=== PATIENT | female | born 1945 | race Caucasian/White ===

== ENCOUNTER 2022-03-21 06:37 | Inpatient (IN) | payer MEDICARE, OTHER ==
[~2022-03-21] VITALS: Ht 162.6 cm; Wt 72.8 kg
[2022-03-21] MEDS ORDERED: SODIUM CHLORIDE 0.9% 1,000 ML IV ONE ×3 (07:30→09:30)
[2022-03-21 07:52] LABS: Basophils # (auto) 0 10 ^3/uL (0-0.2); Basophils % (auto) 0.1 % (0.0-2.0); Eosinophils # (auto) 0 10 ^3/uL (0-0.8); Eosinophils % (auto) 0.1 % (0.0-7.0); Hemoglobin 13.2 g/dL (12.2-16.2); Lymphocytes # (auto) 0.7 10 ^3/uL (0.4-5.4); Mean Corpuscular Hemoglobin 30.2 pg (28.0-32.0); Mean Corpuscular Hgb Conc. 32.1 g/dL (32.0-36.0); Monocytes # (auto) 1.1 10 ^3/uL (0-1.3); Monocytes % (auto) 9.3 % (0.0-12.0); Neutrophils # (auto) 9.8 10 ^3/uL (1.6-8.6); Neutrophils % (auto) 84.5 % (37.0-80.0); Red Blood Cells 4.36 10^6/uL (4.0-5.20); Red Cell Distribution Width 13.7 % (11.8-14.3); White Blood Cell 11.5 10^3/uL (4.4-10.8)
[2022-03-21 08:13] LABS: Albumin 3.2 g/dL (3.4-5.0); Calcium 9.9 mg/dL (8.5-10.1)
[2022-03-21 08:17] LABS: BUN/Creatinine Ratio 12.7; Bilirubin, Total 1.6 mg/dL (0.2-1.0); Total Protein 5.7 g/dL (6.4-8.2)
[2022-03-21 09:00] LABS: Urine Bacteria FEW /hpf (None Seen); Urine Blood Negative /uL (Negative); Urine Hyaline Cast MOD /lpf (0 - 2); Urine Mucus FEW (None Seen); Urine Specific Gravity 1.013 (1.001-1.035); Urine WBC 4 /hpf (0 - 5)
[2022-03-21 09:04] LABS: Alcohol, Urine < 3.0 mg/dL (0-10); Amphetamine Screen, Urine NEGATIVE (NEGATIVE); Barbiturate Scree,Urine NEGATIVE (NEGATIVE); Benzodiazephine Screen, Urine NEGATIVE (NEGATIVE); Cannabinoid Screen, Urine NEGATIVE (NEGATIVE); Cocaine Screen, Urine NEGATIVE (NEGATIVE); Opiate Scree,Urine NEGATIVE (NEGATIVE); Phencyclidine Screen, Urine NEGATIVE (NEGATIVE)
[2022-03-21] MEDS ORDERED: AZITHROMYCIN 500MG/ 250ML 250 ML IV ONE (09:30)
[2022-03-21] MEDS ORDERED: cefTRIAXone 1GM/50ML D5W 50 ML IV ONE (09:30)
[2022-03-21] MEDS ORDERED: metroNIDAZOLE 500MG/100ML 100 ML IV ONE (10:30)
[2022-03-21] MEDS ORDERED: IOHEXOL 300 MG/ML 100ML BOTTLE IJ ONE (10:44)
[2022-03-21] MEDS ORDERED: MORPHINE SULFATE INJ 2 MG/ml SYRG IV PRN (11:15)
[2022-03-21] MEDS ORDERED: NITROGLYCERIN 0.4 MG SL TAB SL PRN (11:15)
[2022-03-21] MEDS ORDERED: FUROSEMIDE 20 MG/2 ML VIAL IV ONE (11:30)
[2022-03-21] MEDS ORDERED: DEXTROSE (50%) 50ML SYRG IV PRN (11:30)
[2022-03-21] MEDS: SODIUM CHLORIDE 0.9% 1,000 ML IV SCH (11:51)
[2022-03-21] MEDS: ACCU-CHEK COMFORT CURVE STRIP VI SCH ×3 (11:52→21:45)
[2022-03-21] MEDS: InsuLIN REG 1unit/0.01ml Soln (100units/ml) SC SCH ×3 (12:07→21:45)
[2022-03-21 12:41] LABS: Cholesterol 105 mg/dL (< 200); HDL Cholesterol 39 mg/dL (40-59); LDL Cholesterol 60 mg/dL (< 100); Triglycerides 107 mg/dL (< 150)
[2022-03-21] MEDS: metroNIDAZOLE 500MG/100ML 100 ML IV SCH ×2 (14:59→21:48)
[2022-03-21] MEDS ORDERED: HALOPERIDOL LACTATE 5 MG/ML INJ VIAL IM PRN (17:30)
[2022-03-21] MEDS ORDERED: KETOROLAC TROMETH 30 MG/ML 1ML VIAL IV ONE (18:30)
[2022-03-22] MEDS: SODIUM CHLORIDE 0.9% 1,000 ML IV SCH ×2 (04:10→20:57)
[2022-03-22] MEDS: metroNIDAZOLE 500MG/100ML 100 ML IV SCH ×3 (06:05→23:30)
[2022-03-22 06:28] LABS: Basophils # (auto) 0 10 ^3/uL (0-0.2); Basophils % (auto) 0.3 % (0.0-2.0); Eosinophils # (auto) 0.1 10 ^3/uL (0-0.8); Eosinophils % (auto) 0.8 % (0.0-7.0); Hematocrit 38.2 % (36.0-46.0); Hemoglobin 12.8 g/dL (12.2-16.2); Lymphocytes # (auto) 1.3 10 ^3/uL (0.4-5.4); Mean Corpuscular Hemoglobin 30.9 pg (28.0-32.0); Mean Corpuscular Hgb Conc. 33.4 g/dL (32.0-36.0); Mean Corpuscular Volume 92.5 fL (80.0-100.0); Monocytes % (auto) 9.7 % (0.0-12.0); Neutrophils # (auto) 7.8 10 ^3/uL (1.6-8.6); Neutrophils % (auto) 76.2 % (37.0-80.0); Nucleated Red Blood Cells % 0.1 %; Red Blood Cells 4.13 10^6/uL (4.0-5.20); Red Cell Distribution Width 13.8 % (11.8-14.3); White Blood Cell 10.3 10^3/uL (4.4-10.8)
[2022-03-22 06:47] LABS: Albumin 2.8 g/dL (3.4-5.0); BUN/Creatinine Ratio 17.1; Calcium 8.6 mg/dL (8.5-10.1); Potassium 3.8 mmol/L (3.5-5.1)
[2022-03-22 06:49] LABS: Bilirubin, Total 0.6 mg/dL (0.2-1.0)
[2022-03-22] MEDS: ACCU-CHEK COMFORT CURVE STRIP VI SCH ×4 (06:58→23:13)
[2022-03-22] MEDS: InsuLIN REG 1unit/0.01ml Soln (100units/ml) SC SCH ×4 (06:58→22:00)
[2022-03-22] MEDS: cefTRIAXone 1GM/50ML D5W 50 ML IV SCH (09:16)
[2022-03-22 09:51] LABS: Folate (Folic Acid) 7.33 ng/mL (5.38-24)
[2022-03-22] MEDS: MAGNESIUM OXIDE 400 MG TAB PO SCH (10:18)
[2022-03-22] MEDS: ENOXAPARIN SOD 40 MG/0.4 ML SYRINGE SC SCH (10:18)
[2022-03-22] MEDS: AZITHROMYCIN 500MG/ 250ML 250 ML IV SCH (10:18)
[2022-03-22 10:26] LABS: Hepatitis B Surface Antibody Negative (Negative)
[2022-03-22 11:01] LABS: Hepatitis A Total Antibody Negative (Negative)
[2022-03-22 12:22] LABS: Hepatitis C Antibody Negative (Negative)
[2022-03-22] MEDS: HYDROcodone-ACET 5/325MG TAB PO PRN (12:41)
[2022-03-22] MEDS ORDERED: LORazepam 2MG/ML-1ML VIAL IV PRN (14:15)
[2022-03-22] MEDS ORDERED: ATOR40TA52 PO (22:22)
[2022-03-22] MEDS ORDERED: MEMA1TAB3 PO (22:22)
[2022-03-22] MEDS ORDERED: LOS25T PO (22:22)
[2022-03-22] MEDS ORDERED: OMEP-260 PO (22:22)
[2022-03-22] MEDS ORDERED: AMIT-256 PO (22:22)
[2022-03-22 22:23] VITALS: BP 189/84
[2022-03-22 23:26] VITALS: BP 180/84
[2022-03-23] MEDS: HYDROcodone-ACET 5/325MG TAB PO PRN ×3 (01:05→20:52)
[2022-03-23 05:00] VITALS: BP 180/84
[2022-03-23] MEDS: metroNIDAZOLE 500MG/100ML 100 ML IV SCH ×3 (05:34→20:52)
[2022-03-23] MEDS: InsuLIN REG 1unit/0.01ml Soln (100units/ml) SC SCH ×4 (05:52→20:58)
[2022-03-23] MEDS: ACCU-CHEK COMFORT CURVE STRIP VI SCH ×4 (05:52→20:59)
[2022-03-23 06:18] LABS: Basophils # (auto) 0 10 ^3/uL (0-0.2); Basophils % (auto) 0.4 % (0.0-2.0); Eosinophils # (auto) 0.1 10 ^3/uL (0-0.8); Eosinophils % (auto) 1.6 % (0.0-7.0); Hematocrit 36.1 % (36.0-46.0); Hemoglobin 12.3 g/dL (12.2-16.2); Lymphocytes # (auto) 1.8 10 ^3/uL (0.4-5.4); Lymphocytes % (auto) 21.4 % (10.0-50.0); Mean Corpuscular Hgb Conc. 34.1 g/dL (32.0-36.0); Mean Corpuscular Volume 90.9 fL (80.0-100.0); Monocytes # (auto) 0.6 10 ^3/uL (0-1.3); Monocytes % (auto) 6.7 % (0.0-12.0); Neutrophils # (auto) 5.9 10 ^3/uL (1.6-8.6); Neutrophils % (auto) 69.9 % (37.0-80.0); Red Blood Cells 3.97 10^6/uL (4.0-5.20); Red Cell Distribution Width 13.7 % (11.8-14.3); White Blood Cell 8.5 10^3/uL (4.4-10.8)
[2022-03-23 06:31] LABS: Potassium 3.2 mmol/L (3.5-5.1)
[2022-03-23 06:38] LABS: BUN/Creatinine Ratio 10.9; Calcium 8.5 mg/dL (8.5-10.1)
[2022-03-23 08:00] VITALS: BP 133/57
[2022-03-23] MEDS: cefTRIAXone 1GM/50ML D5W 50 ML IV SCH (08:26)
[2022-03-23] MEDS: MAGNESIUM OXIDE 400 MG TAB PO SCH (08:28)
[2022-03-23 12:00] VITALS: BP 136/83
[2022-03-23] MEDS: AZITHROMYCIN 500MG/ 250ML 250 ML IV SCH (14:34)
[2022-03-23 16:00] VITALS: BP 150/68
[2022-03-23] MEDS: ENOXAPARIN SOD 40 MG/0.4 ML SYRINGE SC SCH (18:08)
[2022-03-23 22:00] VITALS: BP 144/72
[2022-03-24 05:00] VITALS: BP 173/93
[2022-03-24] MEDS: ACETAMINOPHEN 500 MG TAB PO PRN ×2 (05:01→15:04)
[2022-03-24 06:10] LABS: Basophils # (auto) 0.1 10 ^3/uL (0-0.2); Basophils % (auto) 0.8 % (0.0-2.0); Eosinophils # (auto) 0.1 10 ^3/uL (0-0.8); Eosinophils % (auto) 1.8 % (0.0-7.0); Hematocrit 38.6 % (36.0-46.0); Hemoglobin 13.1 g/dL (12.2-16.2); Lymphocytes # (auto) 1.6 10 ^3/uL (0.4-5.4); Lymphocytes % (auto) 24.8 % (10.0-50.0); Mean Corpuscular Hemoglobin 30.9 pg (28.0-32.0); Mean Corpuscular Hgb Conc. 33.9 g/dL (32.0-36.0); Monocytes # (auto) 0.5 10 ^3/uL (0-1.3); Monocytes % (auto) 7.3 % (0.0-12.0); Neutrophils # (auto) 4.3 10 ^3/uL (1.6-8.6); Neutrophils % (auto) 65.3 % (37.0-80.0); Red Blood Cells 4.24 10^6/uL (4.0-5.20); Red Cell Distribution Width 13.5 % (11.8-14.3); White Blood Cell 6.6 10^3/uL (4.4-10.8)
[2022-03-24] MEDS: metroNIDAZOLE 500MG/100ML 100 ML IV SCH ×2 (06:11→14:00)
[2022-03-24] MEDS: InsuLIN REG 1unit/0.01ml Soln (100units/ml) SC SCH ×3 (06:11→17:00)
[2022-03-24] MEDS: ACCU-CHEK COMFORT CURVE STRIP VI SCH ×3 (06:12→17:00)
[2022-03-24 06:30] LABS: Calcium 9.3 mg/dL (8.5-10.1); Potassium 3.8 mmol/L (3.5-5.1)
[2022-03-24 07:01] VITALS: BP 169/89
[2022-03-24 09:00] VITALS: BP 167/75
[2022-03-24] MEDS: cefTRIAXone 1GM/50ML D5W 50 ML IV SCH ×2 (09:00→09:48)
[2022-03-24] MEDS ORDERED: AMOX500T86 PO (09:30)
[2022-03-24] MEDS ORDERED: hydrALAZINE HCL 20 MG/ML VL IV PRN (09:30)
[2022-03-24] MEDS: MAGNESIUM OXIDE 400 MG TAB PO SCH (09:49)
[2022-03-24] MEDS: AZITHROMYCIN 500MG/ 250ML 250 ML IV SCH (10:00)
[2022-03-24] MEDS: ENOXAPARIN SOD 40 MG/0.4 ML SYRINGE SC SCH (10:00)
[2022-03-24] MEDS ORDERED: amLODIPine BESYLATE 5 MG TAB PO PRN (10:15)
[2022-03-24] MEDS ORDERED: amLODIPine BESYLATE 5 MG TAB PO SCH (10:30)
[2022-03-24 13:00] VITALS: BP 163/73
[2022-03-24 17:00] VITALS: BP 143/78
== END 2022-03-24 18:28 | disposition home or self-care (01) | DRG 871 ==
LOC: ER 06:37 → EDBD 06:37 → OVERFLOW 11:15 → TELE-CENTR 03-22 21:35
PROVIDERS: ADMIT Registered Nurse; ATTEND Internal Medicine Pulmonary Disease
DX: A41.9 Sepsis, unspecified organism (principal); G93.41 Metabolic encephalopathy; R65.21 Severe sepsis with septic shock; J18.9 Pneumonia, unspecified organism; K51.90 Ulcerative colitis, unspecified, without complications; N39.0 Urinary tract infection, site not specified; E11.9 Type 2 diabetes mellitus without complications; E86.0 Dehydration; Z20.822 Contact with and (suspected) exposure to COVID-19; I10 Essential (primary) hypertension; W18.39XA Other fall on same level, initial encounter; F02.80 Dementia in other diseases classified elsewhere, unspecified severity, without behavioral disturbance, psychotic disturbance, mood disturbance, and anxiety; G30.9 Alzheimer's disease, unspecified; W22.03XA Walked into furniture, initial encounter; Z79.899 Other long term (current) drug therapy; Z82.49 Family history of ischemic heart disease and other diseases of the circulatory system; Z87.19 Personal history of other diseases of the digestive system; Z90.49 Acquired absence of other specified parts of digestive tract; Z90.711 Acquired absence of uterus with remaining cervical stump; Y92.89 Other specified places as the place of occurrence of the external cause; Y99.8 Other external cause status
CPT/HCPCS: 36415; 36600; 70450; 70551; 71045; 74176; 74177; 76705; 80048; 80053; 80061; 80307; 81001; 82607; 82746; 82805; 82962; 83036; 83605; 83880; 84443; 84484; 85025; 85610; 86704; 86706; 86708; 86803; 87040; 87086; 87340; 87426; 93005; 93306; 93886; 95819; 96361; 96365; 96367; 97116; 97163; 99291; G0378; J0696; J1815; J1885; J3490

== ENCOUNTER 2022-07-14 12:37 | Day surgery (SDC) | payer MEDICARE ==
[2022-07-12 10:39] LABS: Basophils # (auto) 0.1 10 ^3/uL (0-0.2); Basophils % (auto) 1.3 % (0.0-2.0); Eosinophils # (auto) 0.1 10 ^3/uL (0-0.8); Eosinophils % (auto) 1.6 % (0.0-7.0); Hematocrit 41.5 % (36.0-46.0); Hemoglobin 14.1 g/dL (12.2-16.2); Lymphocytes # (auto) 1.9 10 ^3/uL (0.4-5.4); Lymphocytes % (auto) 32.2 % (10.0-50.0); Mean Corpuscular Hemoglobin 31.2 pg (28.0-32.0); Mean Corpuscular Volume 91.8 fL (80.0-100.0); Monocytes # (auto) 0.6 10 ^3/uL (0-1.3); Neutrophils # (auto) 3.3 10 ^3/uL (1.6-8.6); Neutrophils % (auto) 54.9 % (37.0-80.0); Red Blood Cells 4.52 10^6/uL (4.0-5.20); Red Cell Distribution Width 12.7 % (11.8-14.3)
[2022-07-12 11:15] LABS: Urine Bacteria NONE SEEN /hpf (None Seen); Urine Blood Negative /uL (Negative); Urine Hyaline Cast FEW /lpf (0 - 2); Urine Specific Gravity 1.011 (1.001-1.035); Urine WBC 1 /hpf (0 - 5)
[2022-07-12 11:19] LABS: Partial Thromboplastin Time 26.8 sec (24.6-33.4)
[2022-07-12 11:55] LABS: Potassium 3.9 mmol/L (3.5-5.1)
[2022-07-12 12:11] LABS: Albumin 3.5 g/dL (3.4-5.0); BUN/Creatinine Ratio 18.5 (10.0-20.0); Bilirubin, Total 0.3 mg/dL (0.2-1.0); Calcium 8.9 mg/dL (8.5-10.1); Total Protein 6.4 g/dL (6.4-8.2)
[~2022-07-14] VITALS: Ht 165.1 cm; Wt 68.0 kg
[~2022-07-14 12:37] MED LIST: AMIT-256 PO; ATEN50TA PO; ATOR40TA52 PO; CHOL1TAB28 PO; DULO60CA PO; FENO145T27 PO; GABA100C9 PO; LACT10CA2 OR; LOS25T PO; MULT-1018 PO; OMEP-260 PO
[2022-07-14] MEDS ORDERED: KETAMINE 50mg/ML 10ml Vial (500mg/10ml) IV ONE (13:40)
[2022-07-14] MEDS ORDERED: KETOROLAC TROMETH 30 MG/ML 1ML VIAL IV ONE (13:40)
[2022-07-14] MEDS ORDERED: LIDOCAINE 2% (LOCAL ANESTH.) PF 5ml SDV ONE (13:41)
[2022-07-14] MEDS ORDERED: ONDANSETRON HCL 4 MG/2 ML VIAL ONE (13:41)
[2022-07-14] MEDS ORDERED: GLYCOPYRROLATE 0.2 MG/ML 1ML VIAL ONE (13:41)
[2022-07-14] MEDS ORDERED: MIDAZOLAM HCL 2MG/2ML 2ml VIAL (1mg/ml) ONE (13:41)
[2022-07-14] MEDS ORDERED: fentaNYL CITRATE 100 MCG/2 ML VL ONE (13:41)
[2022-07-14] MEDS ORDERED: PROPOFOL 10 MG/ML 20 ML IV ONE (13:41)
[2022-07-14] MEDS ORDERED: HYDROmorphone HCL 2 MG/ML VL/or syr IV PRN (15:00)
[2022-07-14 15:15] VITALS: BP 163/68
== END 2022-07-14 15:25 | disposition home or self-care (01) ==
LOC: GI 12:37
PROVIDERS: ATTEND Internal Medicine Gastroenterology
DX: R19.4 Change in bowel habit (principal); K57.30 Diverticulosis of large intestine without perforation or abscess without bleeding; K58.9 Irritable bowel syndrome, unspecified; K64.0 First degree hemorrhoids; E11.9 Type 2 diabetes mellitus without complications; I10 Essential (primary) hypertension; K21.9 Gastro-esophageal reflux disease without esophagitis; Z98.890 Other specified postprocedural states; Z90.710 Acquired absence of both cervix and uterus; Z90.49 Acquired absence of other specified parts of digestive tract; Z98.891 History of uterine scar from previous surgery; Z20.822 Contact with and (suspected) exposure to COVID-19
CPT/HCPCS: 36415; 45378; 80053; 81001; 85025; 85610; 85730; J2001; J2250; J2405; J2704; J3010; J7030; U0003; J1885

== ENCOUNTER 2022-11-06 12:41 | Emergency (ER) | payer MEDICARE ==
[~2022-11-06] VITALS: Ht 165.1 cm; Wt 66.8 kg
[~2022-11-06 12:41] MED LIST changes: -DULO60CA PO; +DULO60CA41 PO; +GABA-1308 PO; -GABA100C9 PO; -OMEP-260 PO; +OMEP1CAP70 PO
[2022-11-06 14:26] VITALS: BP 133/53; PULSE 54; RESP 18; TEMP 98.6; O2SAT 95
[2022-11-06] MEDS ORDERED: AMOX875T3 PO (15:50)
== END 2022-11-06 16:02 | disposition home or self-care (01) ==
LOC: ER 12:41
DX: T16.2XXA Foreign body in left ear, initial encounter (principal); F03.90 Unspecified dementia, unspecified severity, without behavioral disturbance, psychotic disturbance, mood disturbance, and anxiety; Z79.899 Other long term (current) drug therapy; X58.XXXA Exposure to other specified factors, initial encounter; Y93.89 Activity, other specified; Y92.89 Other specified places as the place of occurrence of the external cause; Y99.8 Other external cause status
CPT/HCPCS: 69200

== ENCOUNTER 2023-01-07 13:50 | Day surgery (SDC) | payer MEDICARE ==
[2023-01-05 13:38] LABS: Basophils # (auto) 0.1 10 ^3/uL (0-0.2); Basophils % (auto) 1.2 % (0.0-2.0); Eosinophils # (auto) 0.1 10 ^3/uL (0-0.8); Hematocrit 41.5 % (36.0-46.0); Hemoglobin 14.1 g/dL (12.2-16.2); Lymphocytes % (auto) 30.3 % (10.0-50.0); Mean Corpuscular Volume 94.2 fL (80.0-100.0); Monocytes # (auto) 0.6 10 ^3/uL (0-1.3); Monocytes % (auto) 8.9 % (0.0-12.0); Neutrophils # (auto) 3.8 10 ^3/uL (1.6-8.6); Neutrophils % (auto) 57.6 % (37.0-80.0); Red Cell Distribution Width 13.3 % (11.8-14.3); White Blood Cell 6.6 10^3/uL (4.4-10.8)
[2023-01-05 13:50] LABS: INR 1.08 (0.9-1.15); Partial Thromboplastin Time 27.1 SEC (24.5-34.5); Prothrombin Time 11.3 sec (9.3-11.8)
[2023-01-05 14:18] LABS: Alanine Aminotransferase 37 U/L (7-40); Alkaline Phosphatase 103 U/L (46-116); Anion Gap 4 (5-15); Aspartate Aminotransferase 41 U/L (13-40); BUN/Creatinine Ratio 10.3 (10.0-20.0); Bilirubin, Total 0.5 mg/dL (0.2-1.0); Blood Urea Nitrogen 9 mg/dL (9-23); Calcium 10.1 mg/dL (8.7-10.4); Carbon Dioxide 31 mmol/L (20-30); Chloride 103 mmol/L (98-107); Glucose 82 mg/dL (74-106); Potassium 4.8 mmol/L (3.5-5.1); Sodium 138 mmol/L (136-145); Total Protein 6.7 g/dL (5.7-8.2)
[~2023-01-07] VITALS: Ht 165.1 cm; Wt 65.8 kg
[~2023-01-07 13:50] MED LIST changes: +COEN30CA7 PO; +DONE5TAB11 PO; -FENO145T27 PO; +FENO160T PO; +HYDR-4902 PO; +MEMA7CAP OR
[2023-01-07] MEDS ORDERED: SODIUM CHLORIDE LOCK 10 ML ONE (13:54)
[2023-01-07] MEDS ORDERED: LIDOCAINE VISCOUS 2% 15ML UD ONE (13:54)
[2023-01-07] MEDS ORDERED: MIDAZOLAM HCL 5 MG/ML-1ML VIAL ONE (13:55)
[2023-01-07] MEDS ORDERED: fentaNYL CITRATE 100 MCG/2 ML VL ONE (13:55)
[2023-01-07] MEDS: diphenhdrAMINE HCL 50 MG/1 ML VL ONE ×2 (15:37→15:38)
[2023-01-07 15:57] VITALS: TEMP 97.4; O2SAT 99
[2023-01-07 16:47] VITALS: BP 148/61; PULSE 58; RESP 12; O2SAT 95
== END 2023-01-07 16:49 | disposition home or self-care (01) ==
LOC: GI 13:50
PROVIDERS: ATTEND Internal Medicine Gastroenterology
DX: K21.9 Gastro-esophageal reflux disease without esophagitis (principal); K31.7 Polyp of stomach and duodenum; K44.9 Diaphragmatic hernia without obstruction or gangrene; K25.9 Gastric ulcer, unspecified as acute or chronic, without hemorrhage or perforation; K29.50 Unspecified chronic gastritis without bleeding; I10 Essential (primary) hypertension; Z79.899 Other long term (current) drug therapy; Z98.890 Other specified postprocedural states
CPT/HCPCS: 36415; 43239; 43251; 80053; 85025; 85610; 85730; 88305; 88312; 88342; J1200; J2250; J3010; J7030

== ENCOUNTER 2023-12-26 08:00 | Day surgery (SDC) | payer OTHER ==
[~2023-12-26] VITALS: Ht 162.6 cm; Wt 57.6 kg
[~2023-12-26 08:00] MED LIST changes: +ACET-1304 PO; -DONE5TAB11 PO; +DONE5TAB80 PO; -DULO60CA41 PO; +FAMO-12 PO; +GABA-1250 PO; -GABA-1308 PO; -HYDR-4902 PO; -LACT10CA2 OR; +MEMA1TAB5 PO; -OMEP1CAP70 PO; +ROPI0.5T26 PO; +SUCR1TAB PO
[2023-12-26] MEDS ORDERED: IODIXANOL 320MG/ML 100ML BTL IV ONE (11:48)
[2023-12-26] MEDS ORDERED: HEPARIN IN NS 1000Units/500mL 1,500 ML ONE (11:48)
[2023-12-26] MEDS ORDERED: HEPARIN SODIUM (PORCINE) 5000 UNITS/ML 1ML VIAL ONE (12:05)
[2023-12-26] MEDS ORDERED: fentaNYL CITRATE 100 MCG/2 ML VL ONE (12:06)
[2023-12-26] MEDS ORDERED: MIDAZOLAM HCL 2MG/2ML 2ml VIAL (1mg/ml) ONE (12:06)
[2023-12-26] MEDS ORDERED: VERAPAMIL 2.5MG/ML INJ 2ML VIAL IV ONE (12:06)
[2023-12-26] MEDS ORDERED: LIDOCAINE 2%HCL (LOCAL ANESTH.) INJ 20ML MDV ONE (12:06)
[2023-12-26 12:40] VITALS: BP 121/53; PULSE 90; RESP 12; TEMP 97.5; O2SAT 90
[2023-12-26 12:55] VITALS: BP 88/51; PULSE 51; RESP 12; O2SAT 93
[2023-12-26 13:07] VITALS: BP 113/53; PULSE 49; RESP 14; O2SAT 94
[2023-12-26 13:22] VITALS: BP 102/48; PULSE 50; RESP 16; O2SAT 96
[2023-12-26 13:52] VITALS: BP 109/51; PULSE 49; RESP 10; O2SAT 96
[2023-12-26 14:34] VITALS: BP 104/44; PULSE 49; RESP 16; O2SAT 97
== END 2023-12-26 14:45 | disposition home or self-care (01) ==
LOC: CATH 08:00
PROVIDERS: ATTEND Internal Medicine
DX: R07.89 Other chest pain (principal); R94.39 Abnormal result of other cardiovascular function study; E11.9 Type 2 diabetes mellitus without complications; I10 Essential (primary) hypertension; I20.89 Other forms of angina pectoris; F41.9 Anxiety disorder, unspecified; Z87.891 Personal history of nicotine dependence; Z79.899 Other long term (current) drug therapy
CPT/HCPCS: 93458; C1894; J1644; J2250; J3010; J7030; Q9967; 99152

== ENCOUNTER 2024-07-30 12:47 | Emergency (ER) | payer OTHER ==
[~2024-07-30] VITALS: Ht 162.6 cm; Wt 72.7 kg
--- NOTE | 2024-07-30 13:22 | ECG ---
[facility] Test Date: 2024-07-30 Test Time: 13:04:36 Pat Name: JARON TORRES Department: ED Room: Gender: F Cook'S Assistant: MAGDI : 1945 Requested By: GAURAV YUAN Order Number: [id number] Reading MD: Wily Noriega Measurements Intervals [place] Rate: 82 P: 79 PA: 164 QRS: 64 QRSD: 117 T: 42 QT: 389 QTc: 455 Interpretive Statements Sinus rhythm Nonspecific intraventricular conduction delay Electronically Signed On 08-01-2024 21:00:54 PDT by Wily Noriega Please click the below link to view image of tracing.
[2024-07-30 13:25] LABS: Basophils # (auto) 0 10 ^3/uL (0-0.2); Basophils % (auto) 0.5 % (0.0-2.0); Eosinophils # (auto) 0.1 10 ^3/uL (0-0.8); Eosinophils % (auto) 1.7 % (0.0-7.0); Hematocrit 37.2 % (36.0-46.0); Hemoglobin 12.8 g/dL (12.2-16.2); Lymphocytes % (auto) 19.9 % (10.0-50.0); Mean Corpuscular Hemoglobin 31.4 pg (28.0-32.0); Mean Corpuscular Hgb Conc. 34.5 g/dL (32.0-36.0); Mean Corpuscular Volume 91.1 fL (80.0-100.0); Monocytes # (auto) 0.7 10 ^3/uL (0-1.3); Monocytes % (auto) 12.9 % (0.0-12.0); Neutrophils # (auto) 3.3 10 ^3/uL (1.6-8.6); Platelet Count (auto) 229 10^3/uL (140-450); Red Blood Cells 4.08 10^6/uL (4.0-5.20); Red Cell Distribution Width 13.3 % (11.8-14.3); White Blood Cell 5.1 10^3/uL (4.4-10.8)
--- NOTE | 2024-07-30 13:29 | ED.PDOC ---
GI ASSESSMENT HPI Comments 79 y.o female with PMHx of Dementia, HTN and hyperlipidemia, presents to the ED via EMS for a chief complaint of epigastric pain associated with nausea and diarrhea that started 3 days ago. Patient describes pain as achy, constant, non radiating and rating a 4/10 on the pain scale. Patient mentions diarrhea worsened today. Patient denies any vomiting, fever, chills, back pain. Chief Complaint: Abdominal Pain Time Seen by MD: 13:20 Primary Care Provider: PRETTY Reviewed Notes: Nurses Notes, Medications, Allergies Allergies: Coded Allergies: NO KNOWN ALLERGIES (Unverified , 03/21/22) Home Meds Reported Medications Memantine Hydrochloride (Memantine HCl) 10 Mg Tab, 10 MG PO BID for memory, TAB 12/20/23 Gabapentin (Gabapentin) 300 Mg Cap, 600 MG PO HS for neuropathy, MG 12/20/23 Gabapentin (Gabapentin) 300 Mg Cap, 300 MG PO QAM, MG 12/20/23 Donepezil Hydrochloride (DONEPEZIL HCL) 5 Mg Tab, 5 MG PO DAILY for dementia, MG 12/20/23 Acetaminophen (Tylenol Extra Strength) 500 Mg Tab, 500 MG PO PRN, TAB 12/20/23 Sucralfate (Sucralfate) 1 Gm Tab, 1 GM PO BIDP PRN for gerd, GM 12/20/23 Famotidine (Famotidine) 20 Mg Tab, 20 MG PO BID, MG 12/20/23 Ropinirole Hydrochloride (Ropinirole Hcl) 0.5 Mg Tab, 0.5 MG PO HS, TAB 12/20/23 Coenzyme Q10 (Coq10) Unknown Strength Cap, PO, CAP 01/05/23 Memantine Hydrochloride (NAMENDA XR) 7 Mg Cap, 10 MG OR BID, CAP 01/05/23 Fenofibrate (Fenofibrate) 160 Mg Tab, 160 MG PO DAILY, TAB 01/05/23 Atenolol (Atenolol) 50 Mg Tab, 25 MG PO DAILY for 30 Days, MG 07/12/22 Cholecalciferol (D3 2000) 2,000 Unit Tab, 5000 UNIT PO, TAB 07/12/22 Multiple Vitamin (Multivitamins) Tab, 1 TAB PO DAILY, #90 TAB 3 Refills 07/12/22 Losartan Potassium (Losartan Potassium) 25 Mg Tab, 2 TAB PO DAILY 03/22/22 Amitriptyline HCl (Amitriptyline Hydrochlori) 50 Mg Tab, 2 TAB PO HS 03/22/22 Atorvastatin Calcium (ATORVASTATIN CALCIUM) 40 Mg Tab, 1 TAB PO HS 03/22/22 Information Source: Patient Mode of Arrival: EMS Timing: Days (3) Duration: Since onset Quality: Aching Vomitus: None Stool: Loose Severity: Moderate Recent: None Recent Hx of: None Pain Location: Epigastric Modifying Factors: Nothing Associated sign and symptoms: Nausea, Diarrhea, Abdominal Pain Past Medical History PAST MEDICAL HISTORY: Dementia, High Lipids, HTN Surgical History: 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 all 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 Social History Smoker: Non-Smoker Alcohol: Denies ETOH Use Drugs: Denies Drug Use Lives In: Home Constitutional: denies: chills, diaphoresis, fatigue, fever, malaise, sweats, weakness, others EENTM: denies: blurred vision, double vision, ear bleeding, ear discharge, ear drainage, ear pain, ear ringing, eye pain, eye redness, hearing loss, mouth pain, mouth swelling, nasal discharge, nose bleeding, nose congestion, nose pain, photophobia, tearing, throat pain, throat swelling, voice changes, others Respiratory: denies: cough, hemoptysis, orthopnea, SOB at rest, shortness of breath, SOB with excertion, stridor, wheezing, others Cardiovascular: denies: chest pain, dizzy spells, diaphoresis, Dyspnea on exertion, edema, irregular heart beat, left arm pain, lightheadedness, palpitations, PND, syncope, others Gastrointestinal: reports: abdominal pain, diarrhea, nausea; denies: abdomen distended, blood streaked bowels, constipated, dysphagia, difficulty swallowing, hematemesis, melena, poor appetite, poor fluid intake, rectal bleeding, rectal pain, vomiting, others Genitourinary: denies: abnormal vagina bleeding, burning, dyspareunia, dysuria, flank pain, frequency, hematuria, incontinence, pain, , vagina discharge, urgency, others Neurological: denies: dizziness, fainting, headache, left sided numbness, left sided weakness, numbness, paresthesia, pre-existing deficit, right sided numbness, right sided weakness, seizure, speech problems, tingling, tremors, wea kness, others Musculoskeletal: denies: back pain, gout, joint pain, joint swelling, muscle pain, muscle stiffness, neck pain, others Integumetry: denies: bruises, change in color, change in hair/nails, dryness, l aceration, lesions, lumps, rash, wounds, others Allergic/Immunocompromised: denies: Difficulty Healing, Frequent Infections, Hives, Itching, others Hematologic/Lymphatic: denies: anemia, blood clots, easy bleeding, easy bruising, swollen glands, others Endocrine: denies: excessive hunger, excessive sweating, excessive thirst, excessive urination, flushing, intolerance to cold, intolerance to heat, unexplained weight gain, unexplained weight loss, others Psychiatric: denies: anxiety, bipolar disorder, depression, hopeless, panic disorder, schizophrenia, sleepless, suicidal, others All Other Systems: Reviewed and Negative Physical Exam General Appearance: No Apparent Distress, Normal HEENT: NOT DONE Neck: Normal Inspection Respiratory: No Accessory Muscle Use, No Respiratory Distress, Normal Breath Sounds Cardiovascular: Normal Peripheral Pulses, Regular Rate/Rhythm Breast Exam: Deferred Gastrointestinal: Epigastric, Tenderness Genitalia: Deferred Pelvic: Deferred Rectal: Deferred Extremities: Normal inspection Neurologic: Alert, Normal Affect, Normal Mood Cerebellar Function: Normal Reflexes: NOT DONE Skin: Dry, Normal Color Lymphatic: NOT DONE Was a procedure done? Was a procedure done?: No GI differential Dx Differential Diagnosis: Cholangitis, Cholecystitis, Gastritis/PUD, Gastroenteritis, Inflammatory BD X-Ray, Labs, Meds, VS Vital Signs Date Time Temp Pulse Resp B/P (MAP) Pulse Ox O2 Delivery O2 Flow Rate FiO2 07/30/24 13:04 82 07/30/24 12:58 98.3 85 20 122/59 (80) 99 98.3 Lab Test 07/30/24 14:09 07/30/24 13:13 Range/Units Troponin I High Sensitivity 3 L 3 L </=34 ng/L White Blood Count 5.1 4.4-10.8 10^3/uL Red Blood Count 4.08 4.0-5.20 10^6/uL Hemoglobin 12.8 12.2-16.2 g/dL Hematocrit 37.2 36.0-46.0 % Mean Corpuscular Volume 91.1 80.0-100.0 fL Mean Corpuscular Hemoglobin 31.4 28.0-32.0 pg Mean Corpuscular Hemoglobin Concent 34.5 32.0-36.0 g/dL Red Cell Distribution Width 13.3 11.8-14.3 % Platelet Count 229 140-450 10^3/uL Mean Platelet Volume 7.4 6.9-10.8 fL Neutrophils (%) (Auto) 65.0 37.0-80.0 % Lymphocytes (%) (Auto) 19.9 10.0-50.0 % Monocytes (%) (Auto) 12.9 H 0.0-12.0 % Eosinophils (%) (Auto) 1.7 0.0-7.0 % Basophils (%) (Auto) 0.5 0.0-2.0 % Neutrophils # (Auto) 3.3 1.6-8.6 10 ^3/uL Lymphocytes # (Auto) 1.0 0.4-5.4 10 ^3/uL Monocytes # (Auto) 0.7 0-1.3 10 ^3/uL Eosinophils # (Auto) 0.1 0-0.8 10 ^3/uL Basophils # (Auto) 0 0-0.2 10 ^3/uL Nucleated Red Blood Cells 0.0 % Sodium Level 136 136-145 mmol/L Potassium Level 3.5 3.5-5.1 mmol/L Chloride Level 101 98-107 mmol/L Carbon Dioxide Level 28 20-31 mmol/L Anion Gap 7 5-15 Blood Urea Nitrogen 11 9-23 mg/dL Creatinine 0.68 0.550-1.02 mg/dL Glomerular Filtration Rate Calc 87 >90 mL/min BUN/Creatinine Ratio 16.2 10.0-20.0 Serum Glucose 90 74-106 mg/dL Calcium Level 9.3 8.7-10.4 mg/dL Total Bilirubin 0.8 0.2-1.0 mg/dL Aspartate Amino Transferase (AST) 51 H 13-40 U/L Alanine Aminotransferase (ALT) 45 H 7-40 U/L Alkaline Phosphatase 88 46-116 U/L Total Protein 5.4 L 5.7-8.2 g/dL Albumin 3.8 3.2-4.8 g/dL Time of 1ST Reevaluation: 13:26 Reevaluation 1ST: Unchanged Patient Education/Counseling: Diagnosis, Treatment, Prognosis Family Education/Counseling: No Family Present Departure 1 Departure Time of Disposition: 17:54 (Patient presented with abdominal pain that was concerning for possible appendicits, gastritis, cholecystitis, colitis, gastroenteritis, or orther possible surgical emergency. Data: 1. I ordered and reviewed the result of at least 3 labs including a CBC, BMP, and Urinalysis. 2. I independently interpreted the following tests: CT Abdoment and Pelvis is concerning for benign abdomen .Risk:This patient has a high risk of morbidity due to further diagnostic testing or treatment and may suffer from an acute abdominal process disorder. Fortunately workup reveals benign abdomen and patient can be safely discharged to home with outpatient follow up.) Impression: Primary Impression: Gastroenteritis Disposition: HOME / SELF CARE / HOMELESS Condition: Stable Additional Instructions: You likely have gastroenteritis. It is important to stay well hydrated and well rested. This usually resolves within 1 week. If your symptoms worsen or you have any other concerns please return to the ER. Discharged With: Self Critical Care Note Critical Care Time?: No Stability Stability form required: No I personally scribed for GAURAV YUAN MD ([email or web address]) on 07/30/24 at 13:29. Electronically submitted by Saskia Marcum ([facility]). GAURAV YUAN MD Jul 30, 2024 13:29
[2024-07-30 13:41] LABS: Alanine Aminotransferase 45 U/L (7-40); Albumin 3.8 g/dL (3.2-4.8); Alkaline Phosphatase 88 U/L (46-116); Anion Gap 7 (5-15); Aspartate Aminotransferase 51 U/L (13-40); BUN/Creatinine Ratio 16.2 (10.0-20.0); Bilirubin, Total 0.8 mg/dL (0.2-1.0); Blood Urea Nitrogen 11 mg/dL (9-23); Calcium 9.3 mg/dL (8.7-10.4); Carbon Dioxide 28 mmol/L (20-31); Chloride 101 mmol/L (98-107); Glucose 90 mg/dL (74-106); Potassium 3.5 mmol/L (3.5-5.1); Sodium 136 mmol/L (136-145); Total Protein 5.4 g/dL (5.7-8.2)
--- NOTE | 2024-07-30 14:12 | DVH ---
EXAM: XY CHEST PORTABLE HISTORY: weakness COMPARISON: CHEST PORTABLE on DOS: 03/21/22 TECHNIQUE: Portable upright AP view of the chest was performed. FINDINGS: No pneumothorax, consolidative infiltrates, or pulmonary edema. There is a calcified granuloma in the right upper lobe. The heart is not enlarged. There are postoperative changes of ACDF. IMPRESSION: No acute intrathoracic process.
[2024-07-30] MEDS: IOHEXOL 300 MG/ML 100ML BOTTLE IJ ONE (16:52)
--- NOTE | 2024-07-30 17:13 | DVH ---
Exam: CT CT AB PEL WITH IV CON ONLY History: epigastric pain Comparison Study: None available at time of dictation. Contrast: Type of contrast: Omnipaque 300 Contrast injected: 100 mL Contrast wasted: 0 TECHNIQUE: A digital costumer image was obtained. During the uneventful, intravenous administration of c ontrast material, multislice data acquisition was obtained through the abdomen and pelvis. The data s et was subsequently reconstructed into axial images. Images were reviewed on a work station using a c ombination of axial and multiplanar using a variety of window levels and settings. Radiation Dose Information: CT Dose: CTDI volume is 6.81 mGy. Dose-length product is 366.8 mGy*cm FINDINGS: Lung Bases: No acute or significant lung base finding. Normal heart size. No pleural or pericardial effusion. Liver: The liver is normal in size. No focal lesions. Normal hepatic vascular enhancement. Gallbladder and Biliary Tree: Gallbladder has been surgically removed. Spleen: Unremarkable Pancreas: The pancreas is normal in appearance without focal lesions or abnormal enhancement. Adrenal Glands: Unremarkable Kidneys: Kidneys demonstrate normal symmetric enhancement without focal lesions, calculi or hydroneph rosis. Bladder: Unremarkable Bowel: The stomach is grossly normal in appearance. Small bowel and colon are normal in caliber and d istribution. Mucosal thickening of the distal half of the right colon and proximal half of the transv erse colon. Etiology uncertain consider follow-up. The appendix is not visualized; however, no second daryn findings of acute appendicitis identified. Ascites: Absent Lymphadenopathy: No mesenteric, retroperitoneal or periportal lymphadenopathy. Abdominal Wall and Mesentery: Unremarkable. Vasculature: The visualized abdominal aorta is normal in size and caliber. Abdominal and pelvic vess els demonstrate normal enhancement. Pelvic Organs: Unremarkable Musculoskeletal: No aggressive focal bony lesions, acute fractures or dislocation. Soft tissues: Unremarkable. IMPRESSION: 1. No acute abnormality in the abdomen or pelvis. 2. Gallbladder has been surgically removed. 3. No CT findings of bowel obstruction 4. No hydronephrosis or nephrolithiasis 5. Mucosal thickening of the distal half of the right colon proximal half of the transverse colon. Th is may be just secondary to lack of stool but can not exclude segmental colitis. All CT scans at this medical facility are performed using dose modulation techniques as appropriate t o a performed exam including the following: Automated exposure control was utilized; adjustment of th e MA and/or KV according to patient size; and use of iterative reconstruction technique.
[2024-07-30 18:48] VITALS: BP 106/87; PULSE 78; RESP 15; TEMP 98; O2SAT 99
== END 2024-07-30 18:49 | disposition home or self-care (01) ==
LOC: EDUNIT# 12:47 → EDBD 12:47 → ER 12:53
DX: K52.9 Noninfective gastroenteritis and colitis, unspecified (principal); F03.90 Unspecified dementia, unspecified severity, without behavioral disturbance, psychotic disturbance, mood disturbance, and anxiety; I10 Essential (primary) hypertension; E78.5 Hyperlipidemia, unspecified; Z79.899 Other long term (current) drug therapy
CPT/HCPCS: 36415; 71045; 74177; 80053; 84484; 85025; 93005; 99285; Q9967

== ENCOUNTER 2024-08-30 18:20 | Inpatient (IN) | payer OTHER ==
[~2024-08-30] VITALS: Ht 165.1 cm; Wt 65.2 kg
[2024-08-30 18:50] LABS: Basophils # (auto) 0.1 10 ^3/uL (0-0.2); Basophils % (auto) 0.7 % (0.0-2.0); Eosinophils # (auto) 0.1 10 ^3/uL (0-0.8); Eosinophils % (auto) 1.5 % (0.0-7.0); Hematocrit 37.7 % (36.0-46.0); Hemoglobin 12.8 g/dL (12.2-16.2); Lymphocytes # (auto) 1.5 10 ^3/uL (0.4-5.4); Lymphocytes % (auto) 16.3 % (10.0-50.0); Mean Corpuscular Hemoglobin 31.1 pg (28.0-32.0); Mean Corpuscular Hgb Conc. 33.9 g/dL (32.0-36.0); Mean Corpuscular Volume 91.8 fL (80.0-100.0); Monocytes # (auto) 0.8 10 ^3/uL (0-1.3); Monocytes % (auto) 8.8 % (0.0-12.0); Neutrophils # (auto) 6.9 10 ^3/uL (1.6-8.6); Neutrophils % (auto) 72.7 % (37.0-80.0); Platelet Count (auto) 247 10^3/uL (140-450); Red Blood Cells 4.11 10^6/uL (4.0-5.20); Red Cell Distribution Width 13.7 % (11.8-14.3); White Blood Cell 9.5 10^3/uL (4.4-10.8)
--- NOTE | 2024-08-30 19:04 | ED.PDOC ---
GI ASSESSMENT HPI Comments 79 year old female presents to ER with complaints of constipation x 3 weeks. Patient with PMH significant for HTN, DM and HLD presents to ER with complaints of constipation x 3 weeks. Notes she was seen at a local urgent care yesterday and was prescribed MiraLax that she's taken along with doing 2 enemas without relief. She reports 5/10 generalized abdominal pressure and notes she is able to pass gas. Patient also reports history of "early onset" dementia but presents to ER alert and oriented x4, with steady gait, in no distress. Denies fever, body aches, chills, shortness of breath, chest pain, diarrhea or any further symptoms/complaints Chief Complaint: Constipation Time Seen by MD: 18:29 Primary Care Provider: PRETTY Reviewed Notes: Nurses Notes, Medications, Allergies Allergies: Coded Allergies: NO KNOWN ALLERGIES (Unverified , 03/21/22) Home Meds Reported Medications Memantine Hydrochloride (Memantine HCl) 10 Mg Tab, 10 MG PO BID for memory, TAB 12/20/23 Gabapentin (Gabapentin) 300 Mg Cap, 600 MG PO HS for neuropathy, MG 12/20/23 Gabapentin (Gabapentin) 300 Mg Cap, 300 MG PO QAM, MG 12/20/23 Donepezil Hydrochloride (DONEPEZIL HCL) 5 Mg Tab, 5 MG PO DAILY for dementia, MG 12/20/23 Acetaminophen (Tylenol Extra Strength) 500 Mg Tab, 500 MG PO PRN, TAB 12/20/23 Sucralfate (Sucralfate) 1 Gm Tab, 1 GM PO BIDP PRN for gerd, GM 12/20/23 Famotidine (Famotidine) 20 Mg Tab, 20 MG PO BID, MG 12/20/23 Ropinirole Hydrochloride (Ropinirole Hcl) 0.5 Mg Tab, 0.5 MG PO HS, TAB 12/20/23 Coenzyme Q10 (Coq10) Unknown Strength Cap, PO, CAP 01/05/23 Memantine Hydrochloride (NAMENDA XR) 7 Mg Cap, 10 MG OR BID, CAP 01/05/23 Fenofibrate (Fenofibrate) 160 Mg Tab, 160 MG PO DAILY, TAB 01/05/23 Atenolol (Atenolol) 50 Mg Tab, 25 MG PO DAILY for 30 Days, MG 07/12/22 Cholecalciferol (D3 2000) 2,000 Unit Tab, 5000 UNIT PO, TAB 07/12/22 Multiple Vitamin (Multivitamins) Tab, 1 TAB PO DAILY, #90 TAB 3 Refills 07/12/22 Losartan Potassium (Losartan Potassium) 25 Mg Tab, 2 TAB PO DAILY 03/22/22 Amitriptyline HCl (Amitriptyline Hydrochlori) 50 Mg Tab, 2 TAB PO HS 03/22/22 Atorvastatin Calcium (ATORVASTATIN CALCIUM) 40 Mg Tab, 1 TAB PO HS 03/22/22 Information Source: Patient Mode of Arrival: Ambulatory Past Medical History PAST MEDICAL HISTORY: Dementia ("early on-set"), DM, High Lipids, HTN 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 Social History Smoker: Non-Smoker Alcohol: Denies ETOH Use Drugs: Denies Drug Use Lives In: Home Constitutional: denies: chills, diaphoresis, fatigue, fever, malaise, sweats, weakness, others EENTM: denies: blurred vision, double vision, ear bleeding, ear discharge, ear drainage, ear pain, ear ringing, eye pain, eye redness, hearing loss, mouth pain, mouth swelling, nasal discharge, nose bleeding, nose congestion, nose p ain, photophobia, tearing, throat pain, throat swelling, voice changes, others Respiratory: denies: cough, hemoptysis, orthopnea, SOB at rest, shortness of breath, SOB with excertion, stridor, wheezing, others Cardiovascular: denies: chest pain, dizzy spells, diaphoresis, Dyspnea on exertion, edema, irregular heart beat, left arm pain, lightheadedness, palpitations, PND, syncope, others Gastrointestinal: reports: others (As stated in HPI) Genitourinary: denies: abnormal vagina bleeding, burning, dyspareunia, dysuria, flank pain, frequency, hematuria, incontinence, pain, , vagina discharge, urgency, others Neurological: denies: dizziness, fainting, headache, left sided numbness, left sided weakness, numbness, paresthesia, pre-existing deficit, right sided numbness, right sided weakness, seizure, speech problems, tingling, tremors, weakness, others Musculoskeletal: denies: back pain, gout, joint pain, joint swelling, muscle pain, muscle stiffness, neck pain, others Integumetry: denies: bruises, change in color, change in hair/nails, dryness, laceration, lesions, lumps, rash, wounds, others Allergic/Immunocompromised: denies: Difficulty Healing, Frequent Infections, Hives, Itching, others Hematologic/Lymphatic: denies: anemia, blood clots, easy bleeding, easy bruising, swollen glands, others Endocrine: denies: excessive hunger, excessive sweating, excessive thirst, excessive urination, flushing, intolerance to cold, intolerance to heat, unexplained weight gain, unexplained weight loss, others Psychiatric: denies: anxiety, bipolar disorder, depression, hopeless, panic disorder, schizophrenia, sleepless, suicidal, others Physical Exam General Appearance: No Apparent Distress HEENT: PERRL/EOMI Neck: Full Range of Motion, Non-Tender, Normal Respiratory: Chest Non-Tender, Lungs Clear, No Accessory Muscle Use, No Respiratory Distress, Normal Breath Sounds Cardiovascular: No Murmur, No Gallop, Regular Rate/Rhythm Breast Exam: Deferred Gastrointestinal: Distended (with slight TTP to left lower quadrant of abdomen without rebound/guarding), No Organomegaly, No Pulsatile Mass, Normal Bowel Sounds, Soft Genitalia: Deferred Pelvic: Deferred Rectal: Deferred Extremities: Normal capillary refill, Normal range of motion Neurologic: Alert, head of ict II-XII nml as Tested, No Motor Deficits, Normal Affect, Normal Mood, No Sensory Deficits Cerebellar Function: Normal Reflexes: Normal Skin: Dry, Normal Color, Warm Lymphatic: No Adenopathy Was a procedure done? Was a procedure done?: No Sedation Sedation?: No GI differential Dx Differential Diagnosis: Bowel Obstruction, GI hemorrhage, Ischemic Bowel, Trauma intraabdominal X-Ray, Labs, Meds, VS Vital Signs Date Time Temp Pulse Resp B/P (MAP) Pulse Ox O2 Delivery O2 Flow Rate FiO2 08/30/24 18:57 97.7 75 18 153/71 (98) 96 97.7 08/30/24 18:57 75 18 96 Room Air 08/30/24 18:30 97.7 75 18 153/71 (98) 96 97.7 Lab Test 08/30/24 18:57 08/30/24 18:40 Range/Units Urine Color Light-yellow Yellow Urine Clarity Clear Clear Urine pH 6.5 5.0-9.0 Urine Specific [place] 1.014 1.001-1.035 Urine Protein Negative Negative Urine Ketones Negative Negative Urine Blood Negative Negative /uL Urine Nitrite Negative Negative Urine Bilirubin Negative Negative Urine Urobilinogen Normal Negative mg/dL Urine Leukocyte Esterase Negative Negative /uL Urine RBC <1 0 - 4 /hpf Urine Microscopic WBC 1 0-5 /HPF Urine Squamous Epithelial Cells Few <5 /hpf Urine Bacteria None seen None Seen /hpf Urine Hyaline Casts Few 0 - 2 /lpf Urine Glucose Normal Normal mg/dL White Blood Count 9.5 4.4-10.8 10^3/uL Red Blood Count 4.11 4.0-5.20 10^6/uL Hemoglobin 12.8 12.2-16.2 g/dL Hematocrit 37.7 36.0-46.0 % Mean Corpuscular Volume 91.8 80.0-100.0 fL Mean Corpuscular Hemoglobin 31.1 28.0-32.0 pg Mean Corpuscular Hemoglobin Concent 33.9 32.0-36.0 g/dL Red Cell Distribution Width 13.7 11.8-14.3 % Platelet Count 247 140-450 10^3/uL Mean Platelet Volume 7.3 6.9-10.8 fL Neutrophils (%) (Auto) 72.7 37.0-80.0 % Lymphocytes (%) (Auto) 16.3 10.0-50.0 % Monocytes (%) (Auto) 8.8 0.0-12.0 % Eosinophils (%) (Auto) 1.5 0.0-7.0 % Basophils (%) (Auto) 0.7 0.0-2.0 % Neutrophils # (Auto) 6.9 1.6-8.6 10 ^3/uL Lymphocytes # (Auto) 1.5 0.4-5.4 10 ^3/uL Monocytes # (Auto) 0.8 0-1.3 10 ^3/uL Eosinophils # (Auto) 0.1 0-0.8 10 ^3/uL Basophils # (Auto) 0.1 0-0.2 10 ^3/uL Nucleated Red Blood Cells 0.0 % Sodium Level 135 L 136-145 mmol/L Potassium Level 3.7 3.5-5.1 mmol/L Chloride Level 99 98-107 mmol/L Carbon Dioxide Level 29 20-31 mmol/L Anion Gap 7 5-15 Blood Urea Nitrogen 7 L 9-23 mg/dL Creatinine 0.78 0.550-1.02 mg/dL Glomerular Filtration Rate Calc 76 >90 mL/min BUN/Creatinine Ratio 9.0 L 10.0-20.0 Serum Glucose 118 H 74-106 mg/dL Calcium Level 9.0 8.7-10.4 mg/dL Total Bilirubin 0.3 0.2-1.0 mg/dL Aspartate Amino Transferase (AST) 28 13-40 U/L Alanine Aminotransferase (ALT) 22 7-40 U/L Alkaline Phosphatase 84 46-116 U/L Troponin I High Sensitivity < 3 L </=34 ng/L Total Protein 6.0 5.7-8.2 g/dL Albumin 4.1 3.2-4.8 g/dL Lipase 31 12-53 U/L Current Medications Medications (Trade) Dose Ordered Sig/Sam Route Start Time Stop Time Status Last Admin Sodium Chloride 1,000 ml @ 1,000 mls/hr Q1H ONCE IV 08/30/24 20:45 08/30/24 21:44 DC 08/30/24 20:55 PATIENT: JARON TORRES EACCT: [id number]: [id number] : 1945 LOC: ER ROOM / BED: / AGE / SEX: 79 / F ADM STATUS: REG ER SERVICE 28 ORDERING PHYSICIAN: VICKEY DAMON PROCEDURE(s): ABPL - CT AB PEL WO CON-NO ORAL OR IV REASON: constipation ORDER NUMBER(s): [id number], ACCESSION NUMBER(s): [id number] Exam: CT CT AB PEL WO CON-NO ORAL OR IV History: constipation Comparison Study: MBHL on DOS: 03/22/22, CT ABD PELVIS WO CONTRAST on DOS: 03/21/22 TECHNIQUE: Multidetector CT of the abdomen and pelvis without lobe IV contrast. Axial, coronal and sagittal multiplanar reformats were obtained from the axial data set by the technologist. Radiation Dose Information: CT Dose: CTDI volume is 8.13 mGy. Dose-length product is 429.72 mGy*cm FINDINGS: Bibasilar atelectasis. Partially visualized heart is unremarkable. Post cholecystectomy. Liver, spleen, pancreas and adrenal glands unremarkable. Kidneys, ureters and urinary bladder unremarkable. Gastric wall thickening. Nondistended small-bowel loops. Appendix is not definitely visualized. Large amount of fecal material and gas within the colon with distention of the colon up to 7.2 cm. Mild wall thickening of segmental sigmoid colon. No evidence of intraperitoneal free air. Trace amount of free fluid within the pelvis. No evidence of aortic aneurysm. Mild atherosclerotic calcification of the aorta. No significant lymphadenopathy. Wall edema. No destructive osseous lesions noted. Sclerotic foci of the bilateral acetabulum may represent bone islands blastic lesions not excluded. Diffuse demineralization. Severe degenerative changes at L2-L3. IMPRESSION: Large amount of fecal material within the colon with distention of the colon up to 7.2 cm. Mild sigmoid segmental wall thickening. Correlate for stercoral colitis. Trace amount of free fluid within the pelvis. Gastric wall thickening which may be due to inadequate distention/gastritis. 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 Images Reviewed?: Images reviewed and evaluated by Time of 1ST Reevaluation: 19:04 Reevaluation 1ST: N/A Patient Education/Counseling: Diagnosis, Treatment, Prognosis, Need For Follow Up Family Education/Counseling: No Family Present Departure 1 Departure Time of Disposition: 20:34 Impression: Primary Impression: Ileus Additional Impression: Colitis Disposition: ADMITTED INPATIENT Condition: Stable Critical Care Note Critical Care Time?: No Stability Stability form required: No Heart Score Heart Score: Heart Score Response (Comments) Value History N/A 0 EKG N/A 0 Age N/A 0 Risk Factors N/A 0 Troponin N/A 0 Total 0 VICKEY DAMON August 30, 2024 19:04
[2024-08-30 19:22] LABS: Alanine Aminotransferase 22 U/L (7-40); Albumin 4.1 g/dL (3.2-4.8); Alkaline Phosphatase 84 U/L (46-116); Anion Gap 7 (5-15); Aspartate Aminotransferase 28 U/L (13-40); Bilirubin, Total 0.3 mg/dL (0.2-1.0); Carbon Dioxide 29 mmol/L (20-31); Chloride 99 mmol/L (98-107); Lipase 31 U/L (12-53); Potassium 3.7 mmol/L (3.5-5.1)
[2024-08-30 19:25] LABS: Urine Bacteria None Seen /hpf (None Seen)
[2024-08-30 19:29] LABS: Blood Urea Nitrogen 7 mg/dL (9-23); Glucose 118 mg/dL (74-106); Sodium 135 mmol/L (136-145)
[2024-08-30 19:34] LABS: Urine Blood Negative /uL (Negative); Urine Clarity Clear (Clear); Urine Color Light-Yellow (Yellow); Urine Hyaline Cast FEW /lpf (0 - 2); Urine Protein, UAD Negative (Negative); Urine Specific Gravity 1.014 (1.001-1.035); Urine Squamous Epithelial Cell FEW /hpf (<5); Urine Urobilinogen Normal (Negative); Urine WBC 1 /HPF (0-5); Urine pH 6.5 (5.0-9.0)
--- NOTE | 2024-08-30 19:52 | DVH ---
Exam: CT CT AB PEL WO CON-NO ORAL OR IV History: constipation Comparison Study: MBHL on DOS: 03/22/22, CT ABD PELVIS WO CONTRAST on DOS: 03/21/22 TECHNIQUE: Multidetector CT of the abdomen and pelvis without lobe IV contrast. Axial, coronal and sa gittal multiplanar reformats were obtained from the axial data set by the technologist. Radiation Dose Information: CT Dose: CTDI volume is 8.13 mGy. Dose-length product is 429.72 mGy*cm FINDINGS: Bibasilar atelectasis. Partially visualized heart is unremarkable. Post cholecystectomy. Liver, spleen, pancreas and adrenal glands unremarkable. Kidneys, ureters and urinary bladder unremarkable. Gastric wall thickening. Nondistended small-bowel loops. Appendix is not definitely visualized. Larg e amount of fecal material and gas within the colon with distention of the colon up to 7.2 cm. Mild w all thickening of segmental sigmoid colon. No evidence of intraperitoneal free air. Trace amount of free fluid within the pelvis. No evidence of aortic aneurysm. Mild atherosclerotic calcification of the aorta. No significant lymphadenopathy. Wall edema. No destructive osseous lesions noted. Sclerotic foci of the bilateral acetabulum may repr esent bone islands blastic lesions not excluded. Diffuse demineralization. Severe degenerative prado es at L2-L3. IMPRESSION: Large amount of fecal material within the colon with distention of the colon up to 7.2 cm. Mild sigm oid segmental wall thickening. Correlate for stercoral colitis. Trace amount of free fluid within the pelvis. Gastric wall thickening which may be due to inadequate distention/gastritis.
[2024-08-30] MEDS: SODIUM CHLORIDE 0.9% 1,000 ML IV ONE (20:55)
[2024-08-30] MEDS ORDERED: ONDANSETRON HCL 4 MG/2 ML VIAL IV PRN (22:30)
[2024-08-30] MEDS ORDERED: NITROGLYCERIN 0.4 MG SL TAB SL PRN (22:30)
[2024-08-30] MEDS ORDERED: MELATONIN 5 MG TAB PO PRN (22:30)
[2024-08-30] MEDS: SODIUM CHLORIDE 0.9% 1,000 ML IV SCH (22:44)
[2024-08-31] VITALS (7 sets, daily range): BP systolic 139–185; BP diastolic 60–80; PULSE 68–84; RESP 16–19; TEMP 97.3–98.3; O2SAT 95–98
--- NOTE | 2024-08-31 04:15 | DVHHP2 ---
LUCIANA CORTES MEDICAL RECORDS ANALYST 08/31/24 0415: History of Present Illness Reason for Visit: Abdominal pain History of Present Illness 79-year-old female presents with complaints of Constipation times three weeks. Also endorses abdominal pain and distension. Information in the HPI is acquired with the assistance of the patient's daughter Who is at the bedside. Patient recently went to urgent care With similar complaints and was prescribed MiraLAX. However continues to be Without bowel movement. While in the emergency department, An attempt was made to manually fecal disimpact the patient. Result Was minimal. At this time patient denies fevers, chills, Shortness of breath, chest pain,Nausea, vomiting. 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 Endocrine: Diabetes Smoke: No ALCOHOL: occassional Drugs: None Lives: with Family Review of Systems Constitutional: No: Fever, Chills, Sweats, Weakness, Malaise, Other Eyes: No: Pain, Vision change, Conjunctivae inflammation, Eyelid inflammation, Other, Redness ENT: No: Ear pain, Ear discharge, Nose pain, Nose discharge, Nose congestion, Mouth pain, Mouth swelling, Throat pain, Throat swelling, Other Respiratory: No: Cough, Dry, Shortness of breath, SOB with excertion, Wheezing, Hemoptysis, Pleuritic Pain, Sputum, Wheezing, Other Cardiovascular: No: Chest Pain, Palpitations, Orthopnea, Paroxysmal Noc. Dyspnea, Edema, Lt Headedness, Other Gastrointestinal: Abdominal Pain, Constipation; No: Nausea, Vomiting, Diarrhea, Melena, Hematochezia, Other Genitourinary: No Dysuria, No Frequency, No Incontinence, No Hematuria, No Retention, No Other Musculoskeletal: No: other, neck pain, shoulder pain, arm pain, back pain, hand pain, leg pain, foot pain Skin: No: Rash, Lesions, Jaundice, Bruising, Other Neurological: No: Weakness, Numbness, Incoordination, Change in speech, Confusion, Seizures, Other Allergies: Coded Allergies: NO KNOWN ALLERGIES (Unverified , 03/21/22) Medications Current Medications Medications Dose Ordered Sig/Sam Route Start Time Stop Time Status Last Admin Dose Admin Sodium Chloride 1,000 ml @ 60 mls/hr [id number] IV 08/30/24 22:30 08/30/24 22:44 60 MLS/HR Acetaminophen 650 mg Q6HP PRN PO 08/30/24 22:30 Ondansetron HCl 4 mg Q4HP PRN IV 08/30/24 22:30 Nitroglycerin 0.4 mg Q5MINP PRN SL 08/30/24 22:30 Morphine Sulfate 2 mg Q30M PRN IV 08/30/24 22:30 Melatonin 10 mg HS PRN PO 08/30/24 22:30 Memantine 10 mg BID PO 08/31/24 10:00 Donepezil HCl 5 mg DAILY PO 08/31/24 10:00 Atorvastatin Calcium 40 mg DAILY PO 08/31/24 10:00 Hydralazine HCl 10 mg Q6HPRN PRN IV 08/30/24 22:30 Morphine Sulfate 2 mg Q4HP PRN IV 08/30/24 22:30 Exam Vital Signs Vital Signs Date Time Temp Pulse Resp B/P (MAP) Pulse Ox O2 Delivery O2 Flow Rate FiO2 08/31/24 01:40 98.4 68 16 151/80 (103) 95 98.4 08/31/24 01:25 Room Air* 0 21 General Appearance: Alert, Oriented X3, mild distress HEENT: Atraumatic, PERRLA, EOMI Respiratory: Clear to auscultation, Normal air movement Cardiovascular: Regular rate, Normal S1, Normal S2 Abdominal: Other (Firm, distended, diffuse tenderness to palpation) Extremities: No clubbing, No cyanosis Skin: No breakdown Neuro: Normal gait, Normal speech, Strength at 5/5 X4 ext Psych/Mental Status: Mental status NL, Mood NL Labs/Xrays Labs Test 08/30/24 18:57 08/30/24 18:40 Range/Units Urine Color Light-yellow Yellow Urine Clarity Clear Clear Urine pH 6.5 5.0-9.0 Urine Specific [place] 1.014 1.001-1.035 Urine Protein Negative Negative Urine Ketones Negative Negative Urine Blood Negative Negative /uL Urine Nitrite Negative Negative Urine Bilirubin Negative Negative Urine Urobilinogen Normal Negative mg/dL Urine Leukocyte Esterase Negative Negative /uL Urine RBC <1 0 - 4 /hpf Urine Microscopic WBC 1 0-5 /HPF Urine Squamous Epithelial Cells Few <5 /hpf Urine Bacteria None seen None Seen /hpf Urine Hyaline Casts Few 0 - 2 /lpf Urine Glucose Normal Normal mg/dL White Blood Count 9.5 4.4-10.8 10^3/uL Red Blood Count 4.11 4.0-5.20 10^6/uL Hemoglobin 12.8 12.2-16.2 g/dL Hematocrit 37.7 36.0-46.0 % Mean Corpuscular Volume 91.8 80.0-100.0 fL Mean Corpuscular Hemoglobin 31.1 28.0-32.0 pg Mean Corpuscular Hemoglobin Concent 33.9 32.0-36.0 g/dL Red Cell Distribution Width 13.7 11.8-14.3 % Platelet Count 247 140-450 10^3/uL Mean Platelet Volume 7.3 6.9-10.8 fL Neutrophils (%) (Auto) 72.7 37.0-80.0 % Lymphocytes (%) (Auto) 16.3 10.0-50.0 % Monocytes (%) (Auto) 8.8 0.0-12.0 % Eosinophils (%) (Auto) 1.5 0.0-7.0 % Basophils (%) (Auto) 0.7 0.0-2.0 % Neutrophils # (Auto) 6.9 1.6-8.6 10 ^3/uL Lymphocytes # (Auto) 1.5 0.4-5.4 10 ^3/uL Monocytes # (Auto) 0.8 0-1.3 10 ^3/uL Eosinophils # (Auto) 0.1 0-0.8 10 ^3/uL Basophils # (Auto) 0.1 0-0.2 10 ^3/uL Nucleated Red Blood Cells 0.0 % Sodium Level 135 L 136-145 mmol/L Potassium Level 3.7 3.5-5.1 mmol/L Chloride Level 99 98-107 mmol/L Carbon Dioxide Level 29 20-31 mmol/L Anion Gap 7 5-15 Blood Urea Nitrogen 7 L 9-23 mg/dL Creatinine 0.78 0.550-1.02 mg/dL Glomerular Filtration Rate Calc 76 >90 mL/min BUN/Creatinine Ratio 9.0 L 10.0-20.0 Serum Glucose 118 H 74-106 mg/dL Calcium Level 9.0 8.7-10.4 mg/dL Total Bilirubin 0.3 0.2-1.0 mg/dL Aspartate Amino Transferase (AST) 28 13-40 U/L Alanine Aminotransferase (ALT) 22 7-40 U/L Alkaline Phosphatase 84 46-116 U/L Troponin I High Sensitivity < 3 L </=34 ng/L Total Protein 6.0 5.7-8.2 g/dL Albumin 4.1 3.2-4.8 g/dL Lipase 31 12-53 U/L Assessment/Plan Assessment/Plan Colitis Severe constipation Gastritis DM Hx dementia Plan Admit medical floor Gastroenterology consult. Enema IVF Blood glucose checks ACHS with regular insulin sliding scale coverage Continue home medication GI ppx protonix / dvt ppx scd Plan discussed with: Patient, Daughter My Orders Orders - LUCIANA CORTES NP Procedure Category Date Status Time Admit ADMIT 08/30/24 Transmitted 22:18 Code Status CODE 08/30/24 Transmitted 22:18 Vital Signs MICHAELLE 08/30/24 In Process 22:18 Review Orders With MICHAELLE 08/30/24 In Process Adm. 22:18 Encourage Activity As MICHAELLE 08/30/24 In Process Tolerate 22:18 Sodium Chloride 0.9% PHA 08/30/24 In Process 22:30 Oxygen By Face Mask RT 08/30/24 Transmitted 22:18 Acetaminophen Tablet PHA 08/30/24 In Process (Tylenol Tablet) 22:30 Notify Of Changes MICHAELLE 08/30/24 In Process From Base 22:18 Advance Directive MICHAELLE 08/30/24 In Process 22:18 Abdomen 2 View XY 08/31/24 Logged 08:00 Basic Metabolic Panel LAB 08/31/24 Logged 05:00 Basic Metabolic Panel LAB 09/01/24 Verified 05:00 Basic Metabolic Panel LAB 09/02/24 Verified 05:00 Complete Blood Count LAB 08/31/24 Logged 05:00 Complete Blood Count LAB 09/01/24 Verified 05:00 Complete Blood Count LAB 09/02/24 Verified 05:00 Patient Condition ORDERS 08/30/24 Transmitted 22:18 Allergies MICHAELLE 08/30/24 In Process 22:18 Ondansetron Hcl PHA 08/30/24 In Process (Zofran) 22:30 Ambulate Every 4hours MICHAELLE 08/30/24 In Process 22:18 Sequential MICHAELLE 08/30/24 In Process Compression Device Nitroglycerin PHA 08/30/24 In Process Sublingual (Ntrostat 22:30 Morphine Sulfate PHA 08/30/24 In Process Injection 22:30 Stat Ekg For Chest MICHAELLE 08/30/24 In Process Pain 22:18 Notify Of Changes MICHAELLE 08/30/24 In Process From Base 22:18 Emergency Dysrhythmia MICHAELLE 08/30/24 In Process Protocol 22:18 Rhythm Strips Once MICHAELLE 08/30/24 In Process Every Shift 22:18 Oxygen By Nasal RT 08/30/24 Transmitted Cannula 22:18 *[facility] CONS 08/30/24 Transmitted 22:18 Soap Jacob Enema ORDERS 08/31/24 Transmitted 00:00 Soap Jacob Enema ORDERS 08/31/24 Transmitted 04:00 Soap Jacob Enema ORDERS 08/31/24 Transmitted 08:00 Soap Jacob Enema ORDERS 08/31/24 Transmitted 12:00 Soap Jacob Enema ORDERS 08/31/24 Transmitted 16:00 Soap Jacob Enema ORDERS 08/31/24 Transmitted 20:00 Clear Liq Diet DIET 08/31/24 Transmitted Breakfast Melatonin (Melatonin) PHA 08/30/24 In Process 22:30 Memantine Tablet PHA 08/31/24 In Process (Namenda Tablet) 10:00 Donepezil Tablet PHA 08/31/24 In Process (Aricept Tablet) 10:00 Atorvastatin (Lipitor) PHA 08/31/24 In Process 10:00 Hydralazine Injection PHA 08/30/24 In Process (Apresoline Inject 22:30 Morphine Sulfate PHA 08/30/24 In Process Injection 22:30 Thyroid Stimulating LAB 08/31/24 Logged Hormone 03:53 Free T4 (Free LAB 08/31/24 Logged Thyroxine) 03:53 Date of Service: August 31, 2024 Billing Provider: MAX LAWRENCE MD Common Visit Codes: NOT BILLABLE MAX LAWRENCE MD 08/31/24 1624: Review of Systems Allergies: Coded Allergies: NO KNOWN ALLERGIES (Unverified , 03/21/22) Assessment/Plan Assessment/Plan Patient is seen and evaluated by me today. Patient's chart is reviewed and d iscussed with the nurse practitioner. I agree with the nurse practitioner's evaluation, documentation, assessment and care plan as outlined. LUCIANA CORTES NP August 31, 2024 04:15 MAX LAWRENCE MD August 31, 2024 16:24
[2024-08-31 06:07] LABS: Basophils # (auto) 0.1 10 ^3/uL (0-0.2); Basophils % (auto) 0.9 % (0.0-2.0); Eosinophils # (auto) 0.2 10 ^3/uL (0-0.8); Eosinophils % (auto) 2.8 % (0.0-7.0); Hemoglobin 12.7 g/dL (12.2-16.2); Lymphocytes # (auto) 2.2 10 ^3/uL (0.4-5.4); Lymphocytes % (auto) 26.7 % (10.0-50.0); Mean Corpuscular Hemoglobin 30.8 pg (28.0-32.0); Mean Corpuscular Hgb Conc. 33.5 g/dL (32.0-36.0); Mean Corpuscular Volume 91.9 fL (80.0-100.0); Monocytes # (auto) 0.6 10 ^3/uL (0-1.3); Monocytes % (auto) 7.3 % (0.0-12.0); Neutrophils # (auto) 5.2 10 ^3/uL (1.6-8.6); Neutrophils % (auto) 62.3 % (37.0-80.0); Platelet Count (auto) 242 10^3/uL (140-450); Red Blood Cells 4.14 10^6/uL (4.0-5.20); Red Cell Distribution Width 14.2 % (11.8-14.3); White Blood Cell 8.3 10^3/uL (4.4-10.8)
[2024-08-31 06:24] LABS: Anion Gap 8 (5-15); Carbon Dioxide 29 mmol/L (20-31); Chloride 105 mmol/L (98-107); Potassium 3.8 mmol/L (3.5-5.1); Sodium 142 mmol/L (136-145)
[2024-08-31 06:25] LABS: Calcium 9.1 mg/dL (8.7-10.4)
[2024-08-31 06:31] LABS: Glucose 79 mg/dL (74-106)
[2024-08-31 06:48] LABS: Blood Urea Nitrogen < 5 mg/dL (9-23)
[2024-08-31 06:49] LABS: BUN/Creatinine Ratio 8.5 (10.0-20.0)
[2024-08-31] MEDS: GOLYTELY 4L KIT PO ONE (10:40)
[2024-08-31] MEDS: DONEPEZIL HYDROCHLORIDE 5 MG TAB PO SCH (10:41)
[2024-08-31] MEDS: LACTULOSE 20Gm/30ML SOLN PO SCH (10:41)
[2024-08-31] MEDS: ATORVASTATIN 20 MG TAB PO SCH (10:43)
[2024-08-31] MEDS: MEMANTINE HCL 5 MG TAB PO SCH (10:44)
[2024-08-31] MEDS: POLYETHYLENE GLYCOL 17 GM PWDR PO SCH (10:45)
--- NOTE | 2024-08-31 10:46 | DVHINCON2 ---
DATE OF CONSULTATION: 08/31/2024 INPATIENT GI CONSULTATION REFERRING PROVIDER: Jonatan Carolina nurse practitioner REASON FOR CONSULTATION: For constipation. HISTORY OF PRESENT ILLNESS: This is a pleasant 79-year-old female who has history of diabetes, hypertension, dyslipidemia, and thyroid, who presents to the hospital with reports of recurrent abdominal discomfort and constipation for the last 3 weeks. The patient was initially seen in urgent care and was prescribed MiraLax; however, it did not help. Thus, she was brought to the ER for further workup. Imaging studies including CT scan done in the hospital showed a large amount of fecal material within the colon with distention of the colon up to 7.2 cm. There is evidence of mild sigmoid wall thickening. GI is consulted for further input. The patient reports that since she has been in the hospital, she was given multiple enema and she has had multiple bowel movements since. Currently, the patient reports no further abdominal discomfort. She denies any nausea or vomiting. She denies any rectal bleeding. Otherwise, her 10-point review of systems is negative. PAST MEDICAL HISTORY: Notable for hypertension, diabetes, and dyslipidemia. The patient has no known major abdominal surgery. ALLERGIES: She has no known drug allergies. FAMILY HISTORY: Noncontributory. PHYSICAL EXAMINATION: Currently on exam: VITAL SIGNS: Shows temperature is 98.2, pulse 72, blood pressure is 145/64. She is satting 95% on room air. GENERAL: The patient is otherwise alert, in no acute distress. NECK: Supple. OROPHARYNX: Dry. LUNGS: Clear. HEART: Regular rate and rhythm. ABDOMEN: Mildly distended but is soft and nontender to palpation. LOWER EXTREMITIES: No clubbing, cyanosis, or edema. RECTAL: Rectal exam performed with nursing at the bedside shows no stool in the rectal vault. She has normal sphincter tone, no blood. DIAGNOSTIC LABS: Show WBC is 8.3, hemoglobin 12.7, platelet count is 242, BUN is less than 5, creatinine 0.5, TSH 0.87. The patient just had an abdominal x-ray, results are pending, but I had an image reviewed showing that she still has some stool in the colon. IMPRESSION: Severe constipation. Cause is likely secondary to underlying medication. Currently, symptoms appear to be improving. There is no evidence of any fecal impaction on digital rectal exam. RECOMMENDATIONS: My recommendation is to continue the patient on MiraLax daily and lactulose daily as needed upon discharge. I will go ahead and give the patient some GoLytely during this admission to continue for bowel prep. The patient is recommended to have GI follow up for reassessment in 2-3 weeks upon discharge. If she continues to improve and continue bowel movement, the patient may be stable from GI perspective for discharge. Thanks for allowing me the opportunity to participate in the care of this patient. MD TOMASA Bales/RJ TID: [id number] RECEIPT: [id number]
--- NOTE | 2024-08-31 10:47 | DVH ---
Date: 08/31/2024 09:44 AM Examination: XY ABDOMEN 2 VIEW History: constipation Comparison: None TECHNIQUE: Frontal views of the abdomen was obtained. FINDINGS: Bowel gas pattern is unremarkable. Large stool burden. Linear radiopaque density measuring 2.6 cm pro jects over the pelvis. Surgical clips project over the right upper quadrant. The lung bases are unremarkable. No acute osseous abnormality identified. IMPRESSION: Nonobstructive bowel gas pattern. Large stool burden.
[2024-08-31] MEDS: hydrALAZINE HCL 20 MG/ML VL IV PRN (17:32)
[2024-08-31] MEDS: ACETAMINOPHEN 325 MG TAB PO PRN (20:42)
[2024-08-31] MEDS: MELATONIN 5 MG TAB PO SCH (20:42)
[2024-08-31] MEDS: MORPHINE SULFATE INJ 2 MG/ml SYRG IV PRN ×2 (22:12→22:20)
[2024-09-01 01:00] VITALS: BP 181/78; PULSE 94; RESP 19
[2024-09-01] MEDS: cloNIDine HCL 0.1 MG TAB PO ONE (02:57)
[2024-09-01 04:36] VITALS: BP 141/67; PULSE 90; RESP 19; TEMP 98; O2SAT 96
[2024-09-01 06:16] LABS: Basophils # (auto) 0 10 ^3/uL (0-0.2); Basophils % (auto) 0.8 % (0.0-2.0); Eosinophils # (auto) 0.1 10 ^3/uL (0-0.8); Hematocrit 37.3 % (36.0-46.0); Hemoglobin 12.7 g/dL (12.2-16.2); Lymphocytes # (auto) 1.3 10 ^3/uL (0.4-5.4); Lymphocytes % (auto) 20.6 % (10.0-50.0); Mean Corpuscular Hemoglobin 31.2 pg (28.0-32.0); Mean Corpuscular Hgb Conc. 34.1 g/dL (32.0-36.0); Mean Corpuscular Volume 91.4 fL (80.0-100.0); Monocytes # (auto) 0.5 10 ^3/uL (0-1.3); Monocytes % (auto) 8.7 % (0.0-12.0); Neutrophils # (auto) 4.3 10 ^3/uL (1.6-8.6); Neutrophils % (auto) 68.9 % (37.0-80.0); Platelet Count (auto) 282 10^3/uL (140-450); Red Blood Cells 4.09 10^6/uL (4.0-5.20); Red Cell Distribution Width 13.6 % (11.8-14.3); White Blood Cell 6.2 10^3/uL (4.4-10.8)
[2024-09-01 06:32] LABS: Chloride 106 mmol/L (98-107); Sodium 141 mmol/L (136-145)
[2024-09-01 06:33] LABS: Anion Gap 10 (5-15); Carbon Dioxide 25 mmol/L (20-31)
[2024-09-01 06:38] LABS: Glucose 102 mg/dL (74-106)
[2024-09-01 06:52] LABS: Blood Urea Nitrogen < 5 mg/dL (9-23); Calcium 8.6 mg/dL (8.7-10.4); Potassium 3.1 mmol/L (3.5-5.1)
[2024-09-01 08:40] VITALS: BP 177/86; PULSE 89; RESP 20; TEMP 97.6; O2SAT 95
[2024-09-01] MEDS ORDERED: SENN17.23 PO (10:29)
--- NOTE | 2024-09-01 10:30 | DVHDS2 ---
Discharge Summary Date of Admission August 30, 2024 at 22:18 Date of Discharge: September 01, 2024 Labs/Diagnostic Data: Laboratory Results Test 09/01/24 05:35 08/31/24 06:19 08/31/24 05:19 08/30/24 18:57 White Blood Count 6.2 10^3/uL (4.4-10.8) Red Blood Count 4.09 10^6/uL (4.0-5.20) Hemoglobin 12.7 g/dL (12.2-16.2) Hematocrit 37.3 % (36.0-46.0) Mean Corpuscular Volume 91.4 fL (80.0-100.0) Mean Corpuscular Hemoglobin 31.2 pg (28.0-32.0) Mean Corpuscular Hemoglobin Concent 34.1 g/dL (32.0-36.0) Red Cell Distribution Width 13.6 % (11.8-14.3) Platelet Count 282 10^3/uL (140-450) Mean Platelet Volume 7.5 fL (6.9-10.8) Neutrophils (%) (Auto) 68.9 % (37.0-80.0) Lymphocytes (%) (Auto) 20.6 % (10.0-50.0) Monocytes (%) (Auto) 8.7 % (0.0-12.0) Eosinophils (%) (Auto) 1.0 % (0.0-7.0) Basophils (%) (Auto) 0.8 % (0.0-2.0) Neutrophils # (Auto) 4.3 10 ^3/uL (1.6-8.6) Lymphocytes # (Auto) 1.3 10 ^3/uL (0.4-5.4) Monocytes # (Auto) 0.5 10 ^3/uL (0-1.3) Eosinophils # (Auto) 0.1 10 ^3/uL (0-0.8) Basophils # (Auto) 0 10 ^3/uL (0-0.2) Nucleated Red Blood Cells 0.0 % Sodium Level 141 mmol/L (136-145) Potassium Level 3.1 mmol/L (3.5-5.1) Chloride Level 106 mmol/L (98-107) Carbon Dioxide Level 25 mmol/L (20-31) Anion Gap 10 (5-15) Blood Urea Nitrogen < 5 mg/dL (9-23) Creatinine 0.50 mg/dL (0.550-1.02) Glomerular Filtration Rate Calc 94 mL/min (>90) BUN/Creatinine Ratio 10.0 (10.0-20.0) Serum Glucose 102 mg/dL (74-106) Calcium Level 8.6 mg/dL (8.7-10.4) POC Glucose 58 mg/dl (70-106) Thyroid Stimulating Hormone (TSH) 7.83 uIU/mL (0.55-4.78) Free Thyroxine (T4) Calculated 0.94 ng/dL (0.89-1.76) Urine Color Light-yellow (Yellow) Urine Clarity Clear (Clear) Urine pH 6.5 (5.0-9.0) Urine Specific [place] 1.014 (1.001-1.035) Urine Protein Negative (Negative) Urine Ketones Negative (Negative) Urine Blood Negative /uL (Negative) Urine Nitrite Negative (Negative) Urine Bilirubin Negative (Negative) Urine Urobilinogen Normal mg/dL (Negative) Urine Leukocyte Esterase Negative /uL (Negative) Urine RBC <1 /hpf (0 - 4) Urine Microscopic WBC 1 /HPF (0-5) Urine Squamous Epithelial Cells Few /hpf (<5) Urine Bacteria None seen /hpf (None Seen) Urine Hyaline Casts Few /lpf (0 - 2) Urine Glucose Normal mg/dL (Normal) Test 08/30/24 18:40 Total Bilirubin 0.3 mg/dL (0.2-1.0) Aspartate Amino Transferase (AST) 28 U/L (13-40) Alanine Aminotransferase (ALT) 22 U/L (7-40) Alkaline Phosphatase 84 U/L (46-116) Troponin I High Sensitivity < 3 ng/L (</=34) Total Protein 6.0 g/dL (5.7-8.2) Albumin 4.1 g/dL (3.2-4.8) Lipase 31 U/L (12-53) Other Laboratory Tests 09/01/24 05:35 Brief Hx & Hospital Course: 79-year-old female presents with complaints of Constipation times three weeks. Also endorses abdominal pain and distension. Information in the HPI is acquired with the assistance of the patient's daughter Who is at the bedside. Patient recently went to urgent care With similar complaints and was prescribed MiraLAX. However continues to be Without bowel movement. While in the emergency department, An attempt was made to manually fecal disimpact the patient. Result Was minimal. At this time patient denies fevers, chills, Shortness of breath, chest pain,Nausea, vomiting. She is admitted and evaluated by director of outpatient services. Patient received enemas as well as oral laxatives and GoLYTELY. With these modalities of her constipation/fecal impaction has resolved. She is feeling better back to normal baseline status. Therefore it is felt she could be safely discharged home. However patient is advised to take lactulose daily to make sure she is having regular bowel movements. Advised to follow up with the PCP and referral to director of outpatient services for elective colonoscopy in 4-6 weeks. Patient verbalized understanding of this, verbalized understanding over hospital diagnosis, treatment she received, discharge medications, discharge instructions and agree with the follow up plan of care. Consults/Reason for consult CONSULTATION REPORT . ................................................................................ ............................................................................... DATE OF CONSULTATION: 08/31/2024 INPATIENT GI CONSULTATION REFERRING PROVIDER: Jonatan Carolina nurse practitioner REASON FOR CONSULTATION: For constipation. HISTORY OF PRESENT ILLNESS: This is a pleasant 79-year-old female who has history of diabetes, hypertension, dyslipidemia, and thyroid, who presents to the hospital with reports of recurrent abdominal discomfort and constipation for the last 3 weeks. The patient was initially seen in urgent care and was prescribed MiraLax; however, it did not help. Thus, she was brought to the ER for further workup. Imaging studies including CT scan done in the hospital showed a large amount of fecal material within the colon with distention of the colon up to 7.2 cm. There is evidence of mild sigmoid wall thickening. GI is consulted for further input. The patient reports that since she has been in the hospital, she was given multiple enema and she has had multiple bowel movements since. Currently, the patient reports no further abdominal discomfort. She denies any nausea or vomiting. She denies any rectal bleeding. Otherwise, her 10-point review of systems is negative. IMPRESSION: Severe constipation. Cause is likely secondary to underlying medication. Currently, symptoms appear to be improving. There is no evidence of any fecal impaction on digital rectal exam. RECOMMENDATIONS: My recommendation is to continue the patient on MiraLax daily and lactulose daily as needed upon discharge. I will go ahead and give the patient some GoLytely during this admission to continue for bowel prep. The patient is recommended to have GI follow up for reassessment in 2-3 weeks upon discharge. If she continues to improve and continue bowel movement, the patient may be stable from GI perspective for discharge. Thanks for allowing me the opportunity to participate in the care of this patient. MD TOMASA Bales/RJ Operations or Procedures Exam: CT CT AB PEL WO CON-NO ORAL OR IV History: constipation Comparison Study: MBHL on DOS: 03/22/22, CT ABD PELVIS WO CONTRAST on DOS: 03/21/22 TECHNIQUE: Multidetector CT of the abdomen and pelvis without lobe IV contrast. Axial, coronal and sagittal multiplanar reformats were obtained from the axial data set by the technologist. Radiation Dose Information: CT Dose: CTDI volume is 8.13 mGy. Dose-length product is 429.72 mGy*cm FINDINGS: Bibasilar atelectasis. Partially visualized heart is unremarkable. Post cholecystectomy. Liver, spleen, pancreas and adrenal glands unremarkable. Kidneys, ureters and urinary bladder unremarkable. Gastric wall thickening. Nondistended small-bowel loops. Appendix is not definitely visualized. Large amount of fecal material and gas within the colon with distention of the colon up to 7.2 cm. Mild wall thickening of segmental sigmoid colon. No evidence of intraperitoneal free air. Trace amount of free fluid within the pelvis. No evidence of aortic aneurysm. Mild atherosclerotic calcification of the aorta. No significant lymphadenopathy. Wall edema. No destructive osseous lesions noted. Sclerotic foci of the bilateral acetabulum may represent bone islands blastic lesions not excluded. Diffuse demineralization. Severe degenerative changes at L2-L3. IMPRESSION: Large amount of fecal material within the colon with distention of the colon up to 7.2 cm. Mild sigmoid segmental wall thickening. Correlate for stercoral colitis. Trace amount of free fluid within the pelvis. Gastric wall thickening which may be due to inadequate distention/gastritis. Condition at Discharge: Stable Final Diagnosis/Problems List Fecal impaction, Chronic constipation, dementia, hypertension Discharge Disposition: Home Discharge Instruct/Medications Diet: Consistent carbohydrate, Cardiac 2g Na,low cholest Activity: No Restrictions, As Tolerated Follow Up/Referral: Primary care physician for constipation and further management Medications: Take stool softener as prescribed and resume your home medications New Medications: Senna (Senokot Extra Strength) 17.2 Mg Tab 17.2 MG PO QPM, #30 TAB Continued Medications: Acetaminophen (Tylenol Extra Strength) 500 Mg Tab 500 MG PO PRN, TAB Amitriptyline HCl (Amitriptyline Hydrochlori) 50 Mg Tab 2 TAB PO HS Atorvastatin Calcium (Atorvastatin Calcium) 40 Mg Tab 1 TAB PO HS Cholecalciferol (D3 2000) 2,000 Unit Tab 5000 UNIT PO, TAB Coenzyme Q10 (Coq10) Unknown Strength Cap Unknown Dose PO, CAP Donepezil Hydrochloride (Donepezil Hcl) 5 Mg Tab 5 MG PO DAILY for dementia, MG Famotidine (Famotidine) 20 Mg Tab 20 MG PO BID, MG Fenofibrate (Fenofibrate) 160 Mg Tab 160 MG PO DAILY, TAB Gabapentin (Gabapentin) 300 Mg Cap 300 MG PO QAM, MG Losartan Potassium (Losartan Potassium) 25 Mg Tab 2 TAB PO DAILY Memantine Hydrochloride (Memantine HCl) 10 Mg Tab 10 MG PO BID for memory, TAB Multiple Vitamin (Multivitamins) Tab 1 TAB PO DAILY, #90 TAB 3 Refills Ropinirole Hydrochloride (Ropinirole Hcl) 0.5 Mg Tab 0.5 MG PO HS, TAB Sucralfate (Sucralfate) 1 Gm Tab 1 GM PO BIDP PRN for gerd, GM Discontinued Medications: Memantine Hydrochloride (Namenda Xr) 7 Mg Cap 10 MG OR BID, CAP Discharge Statement: "Patient was advised to return to the ER or call 911 if any headaches, dizziness, shortness of breath, chest pain, abdominal pain, bleeding, fevers, or worsening of medical condition. Patient was counseled about treatment plan, medications, possible side effects, patientverbalized understanding. All questions were answered to the best of my ability. This discharge took greater then 30 minutes in planning, reviewing documentation, counseling the patient, and discussing with other team members." ASSESSMENT ASSESSMENT Assessment Fecal impaction, Chronic constipation, dementia, hypertension MAX LAWRENCE MD September 01, 2024 10:30
[2024-09-01 12:00] VITALS: BP 167/77; PULSE 81; RESP 18; TEMP 98.1; O2SAT 94
[2024-09-01 13:50] VITALS: BP 127/77; PULSE 81; RESP 20; TEMP 98.1; O2SAT 94
== END 2024-09-01 14:40 | disposition home or self-care (01) | DRG 389 ==
LOC: ER 18:22 → OVERFLOW 22:18 → CENTRAL 08-31 02:42
PROVIDERS: ADMIT Hospitalist; ATTEND Hospitalist
DX: K56.41 Fecal impaction (principal); K56.7 Ileus, unspecified; A08.4 Viral intestinal infection, unspecified; K29.70 Gastritis, unspecified, without bleeding; E11.9 Type 2 diabetes mellitus without complications; E78.5 Hyperlipidemia, unspecified; I10 Essential (primary) hypertension; F03.90 Unspecified dementia, unspecified severity, without behavioral disturbance, psychotic disturbance, mood disturbance, and anxiety; Z79.899 Other long term (current) drug therapy
CPT/HCPCS: 36415; 74021; 74176; 80048; 80053; 81001; 82962; 83690; 84439; 84443; 84484; 85025; 96360; 96361; G0378

== ENCOUNTER 2024-12-16 19:48 | Emergency (ER) | payer OTHER ==
[~2024-12-16] VITALS: Ht 165.1 cm; Wt 58.0 kg
[~2024-12-16 19:48] MED LIST changes: -ATEN50TA PO; -MEMA7CAP OR; +SENN17.23 PO
--- NOTE | 2024-12-16 21:19 | ED.PDOC ---
History of Present Illness HPI Comments 79-year-old female presents to the ER with daughter and with prior medical history of diabetes, hypertension, high lipids, dementia: Surgical history of hysterectomy, thyroid surgery, neck surgery, cholecystectomy, appendectomy and a chief complaint of high blood pressure. Daughter reports that the patient was sick two weeks ago and currently still has symptoms of leg cramps. Daughter states that there has been no change in the medications recently and that the patient is over 200 systolic at home. Denies chills, fever, N/V/D, SOB, CP. No other associated symptoms, modifiers, recent injuries or sick contacts present at this time. Chief Complaint: High Blood Pressure Time Seen by MD: 21:00 Primary Care Provider: PRETTY Verde Notes: Nurses Notes, Medications, Allergies Allergies: Coded Allergies: NO KNOWN ALLERGIES (Unverified , 03/21/22) Home Meds Active Scripts Senna (Senokot Extra Strength) 17.2 Mg Tab, 17.2 MG PO QPM, #30 TAB Prov:MAX LAWRENCE MD 09/01/24 Reported Medications Memantine Hydrochloride (Memantine HCl) 10 Mg Tab, 10 MG PO BID for memory, TAB 12/20/23 Gabapentin (Gabapentin) 300 Mg Cap, 300 MG PO QAM, MG 12/20/23 Donepezil Hydrochloride (DONEPEZIL HCL) 5 Mg Tab, 5 MG PO DAILY for dementia, MG 12/20/23 Acetaminophen (Tylenol Extra Strength) 500 Mg Tab, 500 MG PO PRN, TAB 12/20/23 Sucralfate (Sucralfate) 1 Gm Tab, 1 GM PO BIDP PRN for gerd, GM 12/20/23 Famotidine (Famotidine) 20 Mg Tab, 20 MG PO BID, MG 12/20/23 Ropinirole Hydrochloride (Ropinirole Hcl) 0.5 Mg Tab, 0.5 MG PO HS, TAB 12/20/23 Coenzyme Q10 (Coq10) Unknown Strength Cap, PO, CAP 01/05/23 Fenofibrate (Fenofibrate) 160 Mg Tab, 160 MG PO DAILY, TAB 01/05/23 Cholecalciferol (D3 2000) 2,000 Unit Tab, 5000 UNIT PO, TAB 07/12/22 Multiple Vitamin (Multivitamins) Tab, 1 TAB PO DAILY, #90 TAB 3 Refills 07/12/22 Losartan Potassium (Losartan Potassium) 25 Mg Tab, 2 TAB PO DAILY 03/22/22 Amitriptyline HCl (Amitriptyline Hydrochlori) 50 Mg Tab, 2 TAB PO HS 03/22/22 Atorvastatin Calcium (ATORVASTATIN CALCIUM) 40 Mg Tab, 1 TAB PO HS 03/22/22 Information Source: Patient, Relative (Child) Mode of Arrival: Ambulatory Severity: Moderate Timing: Came on: Gradually Duration: Since onset Prehospital treatment: None Past Medical History PAST MEDICAL HISTORY: Dementia, DM, High Lipids, HTN Surgical History: Appendectomy, Cholecystectomy, Hysterectomy Surgical History (Other): Thyroid surgery, 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[employer] [facility] History: Pt Confused Family History Family History: Reviewed,noncontributory to illness, Unknown Social History Smoker: Non-Smoker Alcohol: Occasionally (Daily, lightly) Drugs: Denies Drug Use Lives In: Home Constitutional: reports: others (High blood pressure); denies: chills, diaphoresis, fatigue, fever, malaise, sweats, weakness EENTM: denies: blurred vision, double vision, ear bleeding, ear discharge, ear drainage, ear pain, ear ringing, eye pain, eye redness, hearing loss, mouth pain, mouth swelling, nasal discharge, nose bleeding, nose congestion, nose pain, photophobia, tearing, throat pain, throat swelling, voice changes, others Respiratory: denies: cough, hemoptysis, orthopnea, SOB at rest, shortness of breath, SOB with excertion, stridor, wheezing, others Cardiovascular: denies: chest pain, dizzy spells, diaphoresis, Dyspnea on exertion, edema, irregular heart beat, left arm pain, lightheadedness, palpitations, PND, syncope, others Gastrointestinal: denies: abdomen distended, abdominal pain, blood streaked bowels, constipated, diarrhea, dysphagia, difficulty swallowing, hematemesis, melena, nausea, poor appetite, poor fluid intake, rectal bleeding, rectal pain, vomiting, others Genitourinary: denies: abnormal vagina bleeding, burning, dyspareunia, dysuria, flank pain, frequency, hematuria, incontinence, pain, , vagina discharge, urgency, others Neurological: denies: dizziness, fainting, headache, left sided numbness, left sided weakness, numbness, paresthesia, pre-existing deficit, right sided numbness, right sided weakness, seizure, speech problems, tingling, tremors, weakness, others Musculoskeletal: denies: back pain, gout, joint pain, joint swelling, muscle pain, muscle stiffness, neck pain, others Integumetry: denies: bruises, change in color, change in hair/nails, dryness, laceration, lesions, lumps, rash, wounds, others Allergic/Immunocompromised: denies: Difficulty Healing, Frequent Infections, Hives, Itching, others Hematologic/Lymphatic: denies: anemia, blood clots, easy bleeding, easy bruising, swollen glands, others Endocrine: denies: excessive hunger, excessive sweating, excessive thirst, excessive urination, flushing, intolerance to cold, intolerance to heat, unexplained weight gain, unexplained weight loss, others Psychiatric: denies: anxiety, bipolar disorder, depression, hopeless, panic disorder, schizophrenia, sleepless, suicidal, others Unable to Obtain due to: Dementia All Other Systems: Reviewed and Negative Physical Exam General Appearance: No Apparent Distress HEENT: Normal ENT Inspection, Pharynx Normal, TMs Normal Neck: Full Range of Motion, Non-Tender, Normal, Normal Inspection Respiratory: Chest Non-Tender, Lungs Clear, No Accessory Muscle Use, No Respiratory Distress, Normal Breath Sounds Cardiovascular: No Edema, No JVD, No Murmur, No Gallop, Normal Peripheral Pulses, Regular Rate/Rhythm Breast Exam: Deferred Gastrointestinal: No Organomegaly, Non Tender, No Pulsatile Mass, Normal Bowel Sounds, Soft Genitalia: Deferred Pelvic: Deferred Rectal: Deferred Extremities: No calf tenderness, Normal capillary refill, Normal inspection, Normal range of motion, Non-tender, No pedal edema Musculoskeletal : Apperance: Normal Neurologic: Alert, unemployment insurance director II-XII nml as Tested, No Motor Deficits, Normal Affect, Normal Mood, No Sensory Deficits Cerebellar Function: Normal Reflexes: Normal Skin: Dry, Normal Color, Warm Lymphatic: No Adenopathy Was a procedure done? Was a procedure done?: No Differential Dx Considerations may include: Generalized weakness, electrolyte imbalance, CVA, hypertensive urgency, hypertensive crisis X-Ray, Labs, Meds, VS Vital Signs Date Time Temp Pulse Resp B/P (MAP) Pulse Ox O2 Delivery O2 Flow Rate FiO2 12/16/24 19:50 97.8 56 18 193/94 92 97.8 The patient is being signed out to Dr. Hairston Images Reviewed?: Images reviewed and evaluated by me Time of 1ST Reevaluation: 21:30 Reevaluation 1ST: Unchanged Patient Education/Counseling: Diagnosis, Treatment, Prognosis, Other (Patient has dementia) Family Education/Counseling: Diagnosis, Treatment, Prognosis SEPSIS Sepsis Screen Date sepsis recognized/suspect: Dec 16, 2024 Time Sepsis recognized/suspect: 1952 Recent Procedure: No On Antibiotic Therapy: No Respiratory Rate >20: No Heart Rate >90: No Temp<36 C (96.8 F) or >38.3 C: No SBP <90 or MAP <65 mmHG: No New Acute Mental Status Change: No Is the patient on CPAP, BIPAP,: No Physician Orders Head Without Contrast (12/16/24 21:47) Vital Signs Date Time Temp Pulse Resp B/P (MAP) Pulse Ox O2 Delivery O2 Flow Rate FiO2 12/16/24 19:50 97.8 56 18 193/94 92 97.8 Departure 1 Departure Time of Disposition: 21:45 Impression: Primary Impression: Leg pain Qualified Codes: M79.604 - Pain in right leg; M79.605 - Pain in left leg Additional Impression: Hypertensive urgency Disposition: 30 STILL A PATIENT Condition: Fair Critical Care Note Critical Care Time?: No Stability Stability form required: No Heart Score Heart Score: Heart Score Response (Comments) Value History N/A 0 EKG N/A 0 Age N/A 0 Risk Factors N/A 0 Troponin N/A 0 Total 0 I personally scribed for INGA BUCHANAN MD ([email or web address]) on 12/16/24 at 21:19. Electronically submitted by Antwan Garcia ([email or web address]). INGA BUCHANAN MD Dec 16, 2024 21:19
--- NOTE | 2024-12-16 22:43 | DVH ---
CT HEAD WITHOUT CONTRAST INDICATION: kearney COMPARISON: BRAIN HEAD WO CONTRAST on DOS: 03/21/22 TECHNIQUE: CT of the head without intravenous contrast. RADIATION DOSE: CTDIvol: 54.24 mGy, DLP: 54.24 mGy*cm FINDINGS: No evidence of intracranial hemorrhage, infarct, extra-axial collection, mass effect, midline shift or herniation. Ventricles, sulci and cisterns are normal with no hydrocephalus. Minimal presumed chrome tanner valeria microvascular ischemic change. Visualized paranasal sinuses, mastoid air cells and middle ear cavities are clear. Orbits appear unre markable. Soft tissues and osseous structures are unremarkable. IMPRESSION: No acute intracranial abnormality identified. No significant change compared to the prior CT scan from March 2022.
[2024-12-17 00:05] VITALS: PULSE 58; RESP 18; TEMP 98.7; O2SAT 98
[2024-12-17] MEDS: ACETAMINOPHEN 325 MG TAB PO ONE (00:15)
[2024-12-17 01:03] VITALS: BP 187/73; PULSE 57; RESP 18; O2SAT 98
== END 2024-12-17 01:19 | disposition home or self-care (01) ==
LOC: ER 19:48
DX: I16.0 Hypertensive urgency (principal); M79.604 Pain in right leg; M79.605 Pain in left leg; F10.90 Alcohol use, unspecified, uncomplicated; I10 Essential (primary) hypertension; F03.90 Unspecified dementia, unspecified severity, without behavioral disturbance, psychotic disturbance, mood disturbance, and anxiety; E11.9 Type 2 diabetes mellitus without complications; E78.5 Hyperlipidemia, unspecified; Z79.899 Other long term (current) drug therapy; Z90.49 Acquired absence of other specified parts of digestive tract; Z90.710 Acquired absence of both cervix and uterus; Y90.9 Presence of alcohol in blood, level not specified
CPT/HCPCS: 70450

== ENCOUNTER 2024-12-27 02:50 | Inpatient (IN) | payer OTHER ==
[~2024-12-27] VITALS: Ht 162.6 cm; Wt 59.7 kg
[2024-12-27 03:58] LABS: Albumin 4.7 g/dL (3.2-4.8); Alkaline Phosphatase 81 U/L (46-116); Anion Gap 8 (5-15); BUN/Creatinine Ratio 8.9 (10.0-20.0); Bilirubin, Total 0.5 mg/dL (0.2-1.0); Calcium 9.7 mg/dL (8.7-10.4); Carbon Dioxide 28 mmol/L (20-31); Chloride 102 mmol/L (98-107); Potassium 4.3 mmol/L (3.5-5.1); Sodium 138 mmol/L (136-145); Total Protein 6.9 g/dL (5.7-8.2)
[2024-12-27 04:04] LABS: Alanine Aminotransferase 40 U/L (7-40); Blood Urea Nitrogen 7 mg/dL (9-23); Glucose 107 mg/dL (74-106)
[2024-12-27 04:10] LABS: Hematocrit 41.1 % (36.0-46.0); Hemoglobin 14.4 g/dL (12.2-16.2); Mean Corpuscular Hemoglobin 32.4 pg (28.0-32.0); Mean Corpuscular Volume 92.6 fL (80.0-100.0); Nucleated Red Blood Cells % 0.1 %
--- NOTE | 2024-12-27 04:11 | DVH ---
CHEST RADIOGRAPH Indication: HIGH BP Technique: Single frontal view of the chest was obtained COMPARISON: XY CHEST PORTABLE on DOS: 07/30/24, XY CHEST TWO VIEWS ROUTINE on DOS: 07/12/22, CHEST PORT ABLE on DOS: 03/21/22 FINDINGS: Lines and Tubes: None Lungs: Clear Pleura: No effusion. No pneumothorax. Cardiomediastinal contours: Unremarkable Bones: Unremarkable IMPRESSION: 1. No acute disease.
--- NOTE | 2024-12-27 04:24 | DVH ---
EXAM: CT HEAD WITHOUT CONTRAST INDICATION: HIGH BP, HEADACHE TECHNIQUE: CT of the head without intravenous contrast. Radiation Dose : 1. Head: CT Dose: CTDI volume is 53.75 mGy. Dose-length product is 951.85 mGy*cm The dose indicators for CT are the volume Computed Tomography (CT) Dose Index (CTDIvol) and the Dose Length Product (DLP), and are measured in units of mGy and mGy-cm, respectively. These indicators are not patient dose, but values generated from the CT scanner acquisition factors. The report includes radiation exposure data for exposures received during this examination. COMPARISON: CT HEAD WITHOUT CONTRAST on DOS: 12/16/24, MR BRAIN W/O on DOS: 02/15/24, BRAIN HEAD WO CO NTRAST on DOS: 03/22/22, HEAD WITHOUT CONTRAST on DOS: 03/21/22 FINDINGS: There is no evidence of acute intracranial hemorrhage, extra-axial collection, mass effect, midline s hift, herniation or hydrocephalus. The ventricles, sulci and cisterns are age appropriate. The burris-white differentiation is intact. Patchy periventricular and subcortical white matter hypoattenuation is nonspecific but may be related to small vessel ischemic disease. The visualized paranasal sinuses and mastoid air cells are clear. The surrounding soft tissues and osseous structures are unremarkable. IMPRESSION: 1. No acute intracranial abnormality. Radiation optimization: All CT scans at this facility use at least one of these dose optimization daniel hniques: automated exposure control mA and/or kV adjustment per patient size (includes targeted exam s where dose is matched to clinical indication) or iterative reconstruction.
--- NOTE | 2024-12-27 05:14 | ED.PDOC ---
HPI Comments Discharge diagnosis from 09/01/24 Fecal impaction Chronic constipation dementia hypertension HPI: 79 year old female presents to the ED via EMS with a chief compliant of headache onset today. Patient states she has been experiencing headache, rates pain 5/10, as well as dizziness and high blood pressure. She has been taking BP medication as prescribed, has not been able to control BP. During assessment BP was repeated, 147 systolic. Denies fever, chills, abdominal pain, chest pain, shortness of breath, dysuria. No other symptoms or modifying factors present at this time. Initial Vitals BP: 221/95 HR: 68 RR: 18 O2: 96% Temp: 97.9F Past Medical History: dementia, DM, HTN, HLD, Past Surgical History: cholecystectomy, appendectomy, hysterectomy, thyroidectomy, cervical spine surgery Social History: Denies smoking, and drug use. ETOH occasionally Medications: Losartan, Atorvastatin Allergies: NKDA Wilbert HPI: Poor Historian. Past Medical History: Past Surgical History: REVIEW OF SYSTEMS: CONSTITUTIONAL: Denies acute: fever, diaphoresis, chills, generalized weakness. HEAD: Denies acute: , photophobia Eyes: Denies acute: Double vision, vision loss, eye pain, eye discharge. EARS: Denies acute: tinnitus, hearing loss, ear discharge, ear pain, THROAT: Denies acute: sore throat, swelling, difficulty swallowing , pain with swallowing, change in voice. NECK: Denies acute: neck pain, neck swelling, stiff neck. HEART: Denies acute : chest pain, palpitations, LUNGS: Denies acute: SOB, wheezing, cough, hemoptysis ABDOMEN: Denies acute: abdominal pain, Nausea, Vomiting, diarrhea, melena , hematemesis, hematochezia SKIN: Denies acute: rash, redness, lesions, itchiness. EXTREMITIES: Denies acute: calf pain, numbness, tingling, weakness, denies pain in extremity. Denies acute: Low back pain. Neuro: Denies acute: focal neurological deficit, motor or sensory focal neurological deficit, tremors, seizure like activity, confusion, dizziness, change in mental status, loss of bowel or bladder function, cauda equina like symptoms. : Denies acute: dysuria, hematuria, flank pain, increase in urinary frequency. PSYCH: Denies acute: hallucination, suicidal ideation, homicidal ideation. FEMALE: Denies acute: abnormal vaginal bleeding, foul odor, unusual discharge. PHYSICAL EXAM: General: -----no---acute distress, awake and alert. Patient is hard of hearing Head: normocephalic, atraumatic. Neck: supple, trachea is midline, no swelling. Throat: Normal phonation. Eyes:, no erythema, no purulent discharge, no proptosis, no icterus. Heart: regular rate, regular rhythm, no significant murmur appreciated. Lungs: no apparent respiratory distress, Able to speak in full sentences. No wheezing, no rhonchi, no crackles. No stridors Clear to auscultation bilaterally. Abdomen: non tender to palpation, non distended, soft, no guarding, no rebound, + bowel sounds. Neuro: Awake, Alert, oriented to name, self, situation, follows commands GCS=15. Speech is normal. Skin: no petechia, no purpura, no cyanosis, non-pale, not jaundice. Lower extremities: --no - Pitting edema no deformity, no focal swelling, no calf TTP. Makes eye contact. moves all four extremities. Face: no apparent facial droop. ED COURSE: DISCLAIMER: This medical document was created using an electronic medical record system with voice recognition software and computerized dictation system. Although this document has been carefully reviewed, there might still be some phonetic and typographical errors. Occasional wrong-word or "sound-alike" substitutions may have occurred due to the inherent limitations of voice recognition software. These areas are purely typographical due to imperfections of the software programs and do not reflect any compromise in the patient's medical care. Please read the chart carefully and recognize, using context, where these substitutions have occurred. Chief Complaint: Headache Time Seen by MD: 05:10 Primary Care Provider: PRETTY Reviewed Notes: Medications, Allergies Allergies: Coded Allergies: NO KNOWN ALLERGIES (Unverified , 03/21/22) Home Meds Active Scripts Senna (Senokot Extra Strength) 17.2 Mg Tab, 17.2 MG PO QPM, #30 TAB Prov:MAX LAWRENCE MD 09/01/24 Reported Medications Memantine Hydrochloride (Memantine HCl) 10 Mg Tab, 10 MG PO BID for memory, TAB 12/20/23 Gabapentin (Gabapentin) 300 Mg Cap, 300 MG PO QAM, MG 12/20/23 Donepezil Hydrochloride (DONEPEZIL HCL) 5 Mg Tab, 5 MG PO DAILY for dementia, MG 12/20/23 Acetaminophen (Tylenol Extra Strength) 500 Mg Tab, 500 MG PO PRN, TAB 12/20/23 Sucralfate (Sucralfate) 1 Gm Tab, 1 GM PO BIDP PRN for gerd, GM 12/20/23 Famotidine (Famotidine) 20 Mg Tab, 20 MG PO BID, MG 12/20/23 Ropinirole Hydrochloride (Ropinirole Hcl) 0.5 Mg Tab, 0.5 MG PO HS, TAB 12/20/23 Coenzyme Q10 (Coq10) Unknown Strength Cap, PO, CAP 01/05/23 Fenofibrate (Fenofibrate) 160 Mg Tab, 160 MG PO DAILY, TAB 01/05/23 Cholecalciferol (D3 2000) 2,000 Unit Tab, 5000 UNIT PO, TAB 07/12/22 Multiple Vitamin (Multivitamins) Tab, 1 TAB PO DAILY, #90 TAB 3 Refills 07/12/22 Losartan Potassium (Losartan Potassium) 25 Mg Tab, 2 TAB PO DAILY 03/22/22 Amitriptyline HCl (Amitriptyline Hydrochlori) 50 Mg Tab, 2 TAB PO HS 03/22/22 Atorvastatin Calcium (ATORVASTATIN CALCIUM) 40 Mg Tab, 1 TAB PO HS 03/22/22 Information Source: Patient, Relative, Emergency Med Personnel Mode of Arrival: EMS Severity: Moderate Timing: Hours Duration: Since onset Prehospital treatment: None Onset: At Rest Cardiac Risk Factors: Hyperlipidemia, HTN, Diabetes Modifying Factors: Nothing Past Medical History PAST MEDICAL HISTORY: Dementia, DM, High Lipids, HTN Surgical History: Appendectomy, Cholecystectomy, Hysterectomy [employer] History: Pt Confused Family History Family History: Reviewed,noncontributory to illness, Unknown Social History Smoker: Non-Smoker Alcohol: Occasionally Drugs: Denies Drug Use Lives In: Home Was a procedure done? Was a procedure done?: No CP Differential Dx Differential Diagnosis: N/A Differential Diagnosis: Other (DDX include renal disease, thyroid disease, electrolyte abnormality, increased salt intake, medications non-compliance, undiagnosed HTN, Hypertensive crisis, hypertensive urgency., drug toxicity.) X-Ray, Labs, Meds, VS Vital Signs Date Time Temp Pulse Resp B/P (MAP) Pulse Ox O2 Delivery O2 Flow Rate FiO2 12/27/24 05:21 67 18 146/67 (93) 97 12/27/24 03:19 68 12/27/24 03:00 97.9 68 18 221/95 96 97.9 Lab Test 12/27/24 04:14 12/27/24 03:07 Range/Units Troponin I High Sensitivity 45 *H 24 </=34 ng/L White Blood Count 6.2 4.4-10.8 10^3/uL Red Blood Count 4.44 4.0-5.20 10^6/uL Hemoglobin 14.4 12.2-16.2 g/dL Hematocrit 41.1 36.0-46.0 % Mean Corpuscular Volume 92.6 80.0-100.0 fL Mean Corpuscular Hemoglobin 32.4 H 28.0-32.0 pg Mean Corpuscular Hemoglobin Concent 35.0 32.0-36.0 g/dL Red Cell Distribution Width 14.0 11.8-14.3 % Platelet Count 251 140-450 10^3/uL Mean Platelet Volume 7.6 6.9-10.8 fL Neutrophils (%) (Auto) 49.9 37.0-80.0 % Lymphocytes (%) (Auto) 37.6 10.0-50.0 % Monocytes (%) (Auto) 9.0 0.0-12.0 % Eosinophils (%) (Auto) 2.4 0.0-7.0 % Basophils (%) (Auto) 1.1 0.0-2.0 % Neutrophils # (Auto) 3.1 1.6-8.6 10 ^3/uL Lymphocytes # (Auto) 2.3 0.4-5.4 10 ^3/uL Monocytes # (Auto) 0.6 0-1.3 10 ^3/uL Eosinophils # (Auto) 0.1 0-0.8 10 ^3/uL Basophils # (Auto) 0.1 0-0.2 10 ^3/uL Nucleated Red Blood Cells 0.1 % Sodium Level 138 136-145 mmol/L Potassium Level 4.3 3.5-5.1 mmol/L Chloride Level 102 98-107 mmol/L Carbon Dioxide Level 28 20-31 mmol/L Anion Gap 8 5-15 Blood Urea Nitrogen 7 L 9-23 mg/dL Creatinine 0.79 0.550-1.02 mg/dL Glomerular Filtration Rate Calc 75 >90 mL/min BUN/Creatinine Ratio 8.9 L 10.0-20.0 Serum Glucose 107 H 74-106 mg/dL Hemoglobin A1c 5.0 <5.7 % A1C Calcium Level 9.7 8.7-10.4 mg/dL Total Bilirubin 0.5 0.2-1.0 mg/dL Aspartate Amino Transferase (AST) 42 H 13-40 U/L Alanine Aminotransferase (ALT) 40 7-40 U/L Alkaline Phosphatase 81 46-116 U/L Total Protein 6.9 5.7-8.2 g/dL Albumin 4.7 3.2-4.8 g/dL Current Medications Medications (Trade) Dose Ordered Sig/Sam Route Start Time Stop Time Status Last Admin Ondansetron HCl (Zofran) 4 mg ONCE ONCE IV 12/27/24 06:00 12/27/24 06:01 DC 12/27/24 11:06 [place] [id number] Ph: [phone] DIAGNOSTIC IMAGING Diagnostic Imaging Report : [id number] Signed PATIENT: JARON TORRES ACCT: [id number] UNIT: [id number] : 1945 LOC: ER ROOM / BED: / AGE / SEX: 79 / F ADM STATUS: REG ER SERVICE 2 ORDERING PHYSICIAN: EUGENE FERRARO DO PROCEDURE(s): HWOCT - HEAD WITHOUT CONTRAST REASON: HIGH BP, HEADACHE ORDER NUMBER(s): [id number], ACCESSION NUMBER(s): [id number] EXAM: CT HEAD WITHOUT CONTRAST INDICATION: HIGH BP, HEADACHE TECHNIQUE: CT of the head without intravenous contrast. Radiation Dose : 1. Head: CT Dose: CTDI volume is 53.75 mGy. Dose-length product is 951.85 mGy*cm The dose indicators for CT are the volume Computed Tomography (CT) Dose Index (CTDIvol) and the Dose Length Product (DLP), and are measured in units of mGy and mGy-cm, respectively. These indicators are not patient dose, but values ge nerated from the CT scanner acquisition factors. The report includes radiation exposure data for exposures received during this examination. COMPARISON: CT HEAD WITHOUT CONTRAST on DOS: 12/16/24, MR BRAIN W/O on DOS: 02/15/24, BRAIN HEAD WO CONTRAST on DOS: 03/22/22, HEAD WITHOUT CONTRAST on DOS: 03/21/22 FINDINGS: There is no evidence of acute intracranial hemorrhage, extra-axial collection, mass effect, midline shift, herniation or hydrocephalus. The ventricles, sulci and cisterns are age appropriate. The burris-white differentiation is intact. Patchy periventricular and subcortical white matter hypoattenuation is nonspecific but may be related to small vessel ischemic disease. The visualized paranasal sinuses and mastoid air cells are clear. The surrounding soft tissues and osseous structures are unremarkable. IMPRESSION: 1. No acute intracranial abnormality. Radiation optimization: All CT scans at this facility use at least one of these dose optimization techniques: automated exposure control mA and/or kV adjustment per patient size (includes targeted exams where dose is matched to clinical indication) or iterative reconstruction. ATED BY: J CARLOS MALAVE MD DICTATED DATE/TIME: 12/27/24420 SIGNED BY: J CARLOS MALAVE MD SIGNED DATE/TIME: 12/27/24420 CC: [place] [id number] Ph: [phone] DIAGNOSTIC IMAGING Diagnostic Imaging Report : [id number] Signed PATIENT: JARON TORRES ACCT: [id number] UNIT: [id number] : 1945 LOC: ER ROOM / BED: / AGE / SEX: 79 / F ADM STATUS: REG ER SERVICE 2 ORDERING PHYSICIAN: EUGENE FERRARO DO PROCEDURE(s): CXR1 - CHEST XRAY 1 VIEW REASON: HIGH BP ORDER NUMBER(s): [id number], ACCESSION NUMBER(s): [id number] CHEST RADIOGRAPH Indication: HIGH BP Technique: Single frontal view of the chest was obtained COMPARISON: XY CHEST PORTABLE on DOS: 07/30/24, XY CHEST TWO VIEWS ROUTINE on DOS: 07/12/22, CHEST PORTABLE on DOS: 03/21/22 FINDINGS: Lines and Tubes: None Lungs: Clear Pleura: No effusion. No pneumothorax. Cardiomediastinal contours: Unremarkable Bones: Unremarkable IMPRESSION: 1. No acute disease. ATED BY: J CARLOS MALAVE MD DICTATED DATE/TIME: 12/27/24407 SIGNED BY: J CARLOS MALAVE MD SIGNED DATE/TIME: 12/27/24407 CC: Time of 1ST Reevaluation: 05:40 Reevaluation 1ST: Unchanged Time of 2ND Reevaluation: 05:49 (The case was discussed with the admitting team (HPI, physical exam, labs and diagnostic tests that were available at the time of disposition, ED course, treatment plan) on the phone. They agreed to admit the patient to their service and assume care of this patient from this point forward. Nurse practitioner Negrita) Reevaluation 2ND: Improved Patient Education/Counseling: Diagnosis, Treatment Family Education/Counseling: No Family Present Comments MDM: patient presented with the above HPI.---hypertensive crisis---workup was initiated. patient was found with the above mentioned diagnosis. the following medications were ordered: please refer to order lists of meds and tests obtained by myself Dr. Ferraro. Patient ED course and VS have been stabilized. Patient has been reassessed in the ED and remained in a stable condition. Pertinent incidental findings were discussed with the patient and/or family. Patient/family voices understanding and is agreeable with plan. Patient has been observed in the ED adequate length of time to insure improvement/stability. Escalation of care considered: Consideration of escalation to observation or admission Blood pressure improved without intervention. Patient was found with elevated troponin Patient was ADMITTED to the medicine team for further evaluation and treatment of their presentation. All the reports of any imaging studies that were ordered by myself were reviewed by myself. Departure 1 Departure Time of Disposition: Impression: Primary Impression: Hypertensive emergency Additional Impression: Elevated troponin Disposition: ADMITTED INPATIENT Admit to: [facility] Condition: Guarded Discharged With: Self Critical Care Note Critical Care Time?: Yes (45 min-critical care time only) Heart Score Heart Score: Heart Score Response (Comments) Value History Slightly Suspicious 0 EKG Normal 0 Age >65 2 Risk Factors 1 or 2 risk factors 1 Troponin 1-2 x's Normal limit 1 Total 4 I personally scribed for EUGENE FERRARO DO ([email or web address]) on 12/27/24 at 05:14. Electronically submitted by Ivis Welch ([email or web address]). I personally scribed for EUGENE FERRARO DO ([email or web address]) on 12/27/24 at 05:19. Electronically submitted by Ivis Welch ([email or web address]). I personally scribed for EUGENE FERRARO DO ([email or web address]) on 12/27/24 at 05:20. Electronically submitted by Ivis Welch ([email or web address]). EUGENE FERARRO DO Dec 27, 2024 05:14
[2024-12-27] MEDS ORDERED: NITROGLYCERIN 0.4 MG SL TAB SL PRN (06:45)
[2024-12-27] MEDS ORDERED: MORPHINE SULFATE INJ 2 MG/ml SYRG IV PRN (06:45)
--- NOTE | 2024-12-27 06:51 | DVHHP2 ---
Admitting Diagnosis: Dizziness, Elevated troponin History of Present Illness History Source: Patient, Family Exam Limitations: No limitations HPI Mrs. Live Atkins is an 79 year old female with a history of Dementia, Hypertension, DM, HLD who presents with a chief compliant of headache onset yesterday, patient reports dizziness and high blood pressure as well. She has been taking BP medication as prescribed, has not been able to control BP. During assessment BP was repeated, 147 systolic. Denies fever, chills, abdominal pain, chest pain, shortness of breath, dysuria. No other symptoms or modifying factors present at this time. Patient will be admitted for further evaluation and treatment. Home Meds Active Scripts Senna (Senokot Extra Strength) 17.2 Mg Tab, 17.2 MG PO QPM, #30 TAB Prov:MAX LAWRENCE MD 09/01/24 Reported Medications Memantine Hydrochloride (Memantine HCl) 10 Mg Tab, 10 MG PO BID for memory, TAB 12/20/23 Gabapentin (Gabapentin) 300 Mg Cap, 300 MG PO QAM, MG 12/20/23 Donepezil Hydrochloride (DONEPEZIL HCL) 5 Mg Tab, 5 MG PO DAILY for dementia, MG 12/20/23 Acetaminophen (Tylenol Extra Strength) 500 Mg Tab, 500 MG PO PRN, TAB 12/20/23 Sucralfate (Sucralfate) 1 Gm Tab, 1 GM PO BIDP PRN for gerd, GM 12/20/23 Famotidine (Famotidine) 20 Mg Tab, 20 MG PO BID, MG 12/20/23 Ropinirole Hydrochloride (Ropinirole Hcl) 0.5 Mg Tab, 0.5 MG PO HS, TAB 12/20/23 Coenzyme Q10 (Coq10) Unknown Strength Cap, PO, CAP 01/05/23 Fenofibrate (Fenofibrate) 160 Mg Tab, 160 MG PO DAILY, TAB 01/05/23 Cholecalciferol (D3 2000) 2,000 Unit Tab, 5000 UNIT PO, TAB 07/12/22 Multiple Vitamin (Multivitamins) Tab, 1 TAB PO DAILY, #90 TAB 3 Refills 07/12/22 Losartan Potassium (Losartan Potassium) 25 Mg Tab, 2 TAB PO DAILY 03/22/22 Amitriptyline HCl (Amitriptyline Hydrochlori) 50 Mg Tab, 2 TAB PO HS 03/22/22 Atorvastatin Calcium (ATORVASTATIN CALCIUM) 40 Mg Tab, 1 TAB PO HS 03/22/22 Past Medical History Cardiac: HTN, Hyperlipidemia Pulmonary: No pertinent Hx Central Nervous System: Dementia GI: No pertinent Hx Hemotology/Oncology: No pertinent Hx Hepatobiliary: No pertinent Hx Psychiatric: No pertinent Hx Musculoskeletal: No pertinent Hx Rheumotologic: No pertinent Hx Infectious Disease: No peritnent Hx ENT: No pertinent Hx Renal/: No pertinent Hx Endocrine: NIDDM Dermatology: No pertinent Hx Patient Family History: FH: emphysema G8 FATHER FH: lung cancer G8 FATHER FH: multiple myeloma G8 MOTHER, , Age: 92 Review of Systems All Other Systems Dizziness, headaches H&P Exam Vital Signs Vital Signs Date Time Temp Pulse Resp B/P (MAP) Pulse Ox O2 Delivery O2 Flow Rate FiO2 12/27/24 05:21 67 18 146/67 (93) 97 12/27/24 03:00 97.9 97.9 General Appeara: Well developed, Well nourished, Normal Appearance Head Exam: Normal inspection Neck Exam: Normal inspection, Non-tender, Normal alignment Eye Exam: bilateral eye Normal inspection, bilateral eye PERRL, bilateral eye EOMI Ear Exam: bilateral ear Auricle normal Nasal Exam: Normal inspection Mouth: Normal Inspection Pulmonary/Respiratory: Normal inspection, Normal breath sounds, Chest non- tender, Lungs clear Cardiovascular/Chest: Normal inspection, Regular rate, Normal Rhythm Peripheral Pulses: 2+ dorsalis pedis (R), 2+ dorsalis pedis (L), 2+ Radial (R), 2+ Radial (L) Abdominal Exam: Normal bowel sounds, Soft, No tenderness 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 Exam: Normal hearing, Normal speech, PERRL Motor/Sensory: Normal sensory function, Normal motor function Neuro/Mental St: Alert, Oriented Appearance: Appropriate appearance, Appropriate insight, Memory impairment Eye contact/ Speech: Cooperative, Good eye contact, Normal speech Thoughts/Psych: Normal thought pattern Skin Exam: Normal inspection, Normal color, Warm/dry SEPSIS Sepsis Screen Date sepsis recognized/suspect: Dec 27, 2024 Time Sepsis recognized/suspect: 299 Recent Procedure: No On Antibiotic Therapy: No Respiratory Rate >20: No Heart Rate >90: No Temp<36 C (96.8 F) or >38.3 C: No SBP <90 or MAP <65 mmHG: No New Acute Mental Status Change: No Is the patient on CPAP, BIPAP,: No Physician Orders Electrocardigram (12/27/24 03:13) Chest Xray 1 View (12/27/24 03:13) Head Without Contrast (12/27/24 03:13) Troponin-I Hs (12/27/24 06:13) Troponin-I Hs (12/27/24 06:00) Troponin-I Hs (12/27/24 14:00) Troponin-I Hs (12/27/24 22:00) Echo 2d Mode Cardiac Dop (12/27/24 05:53) * Cardiology Consult (12/27/24 05:53) Full Code (12/27/24 05:53) Cardiac Diet-2gna,Lofat,Lochol (12/27/24 Breakfast) Pt Request For Service (12/27/24 05:53) Fall Risk Precautions In Place QSHIFT (12/27/24 05:53) Pantoprazole (Protonix) (12/27/24 10:00) Aspirin Tablet (12/27/24 10:00) Atorvastatin (Lipitor) (12/27/24 22:00) Admit (12/27/24 06:40) Nitroglycerin Sublingual (Ntrostat Subli (12/27/24 06:45) Morphine Sulfate Injection (12/27/24 06:45) Stat Ekg For Chest Pain (12/27/24 06:40) Notify Md Of Changes From Base (12/27/24 06:40) Platform Operations Director For 24 Hours (12/27/24 06:40) Emergency Dysrhythmia Protocol (12/27/24 06:40) Rhythm Strips Once Every Shift (12/27/24 06:40) Oxygen By Nasal Cannula (12/27/24 06:40) Vital Signs Date Time Temp Pulse Resp B/P (MAP) Pulse Ox O2 Delivery O2 Flow Rate FiO2 12/27/24 05:21 67 18 146/67 (93) 97 12/27/24 03:19 68 12/27/24 03:00 97.9 68 18 221/95 96 97.9 Laboratory Tests Test 12/27/24 03:07 White Blood Count 6.2 10^3/uL (4.4-10.8) Labs/Xrays Labs Test 12/27/24 04:14 12/27/24 03:07 Range/Units Troponin I High Sensitivity 45 *H </=34 ng/L White Blood Count 6.2 4.4-10.8 10^3/uL Red Blood Count 4.44 4.0-5.20 10^6/uL Hemoglobin 14.4 12.2-16.2 g/dL Hematocrit 41.1 36.0-46.0 % Mean Corpuscular Volume 92.6 80.0-100.0 fL Mean Corpuscular Hemoglobin 32.4 H 28.0-32.0 pg Mean Corpuscular Hemoglobin Concent 35.0 32.0-36.0 g/dL Red Cell Distribution Width 14.0 11.8-14.3 % Platelet Count 251 140-450 10^3/uL Mean Platelet Volume 7.6 6.9-10.8 fL Neutrophils (%) (Auto) 49.9 37.0-80.0 % Lymphocytes (%) (Auto) 37.6 10.0-50.0 % Monocytes (%) (Auto) 9.0 0.0-12.0 % Eosinophils (%) (Auto) 2.4 0.0-7.0 % Basophils (%) (Auto) 1.1 0.0-2.0 % Neutrophils # (Auto) 3.1 1.6-8.6 10 ^3/uL Lymphocytes # (Auto) 2.3 0.4-5.4 10 ^3/uL Monocytes # (Auto) 0.6 0-1.3 10 ^3/uL Eosinophils # (Auto) 0.1 0-0.8 10 ^3/uL Basophils # (Auto) 0.1 0-0.2 10 ^3/uL Nucleated Red Blood Cells 0.1 % Sodium Level 138 136-145 mmol/L Potassium Level 4.3 3.5-5.1 mmol/L Chloride Level 102 98-107 mmol/L Carbon Dioxide Level 28 20-31 mmol/L Anion Gap 8 5-15 Blood Urea Nitrogen 7 L 9-23 mg/dL Creatinine 0.79 0.550-1.02 mg/dL Glomerular Filtration Rate Calc 75 >90 mL/min BUN/Creatinine Ratio 8.9 L 10.0-20.0 Serum Glucose 107 H 74-106 mg/dL Calcium Level 9.7 8.7-10.4 mg/dL Total Bilirubin 0.5 0.2-1.0 mg/dL Aspartate Amino Transferase (AST) 42 H 13-40 U/L Alanine Aminotransferase (ALT) 40 7-40 U/L Alkaline Phosphatase 81 46-116 U/L Total Protein 6.9 5.7-8.2 g/dL Albumin 4.7 3.2-4.8 g/dL Assessment/Plan Problem List: (1) Dizziness (2) Elevated troponin Plan This is an 79 yo female with known history of dementia, hypertension, DM, hyperlipidemia, who presents to the hospital with dizziness, headaches. Patient found to have 1. Dizziness 2. Elevated troponin 3 Hypertension 4. DM type 2 5. Hyperlipidemia 6. Dementia Plan Admit Telemetry unit Cardiology consultation, 2D echocardiogram, serial troponin levels, ASA, Statin Continue home medications when reconciled Fall precautions Discussed all above with patient and patient family in the ED. Both verbalized agreement and understanding of care plan. All questions were answered. Discussed with supervising MD. Plan discussed with: Patient, Other Code Visit Code Visit Total Time (mins): 45 Additional Comments Additional Comments Additional Comments 79-year-old female with a known history of hypertension, dyslipidemia, diabetes mellitus type 2, peripheral neuropathy, restless leg syndrome, early dementia presented to the hospital with a headache dizziness found to have 1. Hypertensive urgency 2. Elevated troponin suspect NSTEMI type 2 secondary to uncontrolled hypertension 3. Diabetes mellitus type 2 4. Dyslipidemia and hypertriglyceridemia 5. Peripheral neuropathy 6. Restless leg syndrome with the leg cramps 6. Early cognitive decline -2D echo, continue aspirin statin, cardiology consultation, check CPK level JODY IRBY Dec 27, 2024 06:50 TIN ENGLAND MD Dec 27, 2024 15:26
--- NOTE | 2024-12-27 07:23 | ECG ---
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
--- NOTE | 2024-12-27 10:29 | DVHINCON2 ---
SALENA GARCIA [facility] 12/27/24 1029: Date Seen: Dec 27, 2024 Referring Physician SHANNAN Gallagher Reason for Consultation Dizziness, elevated troponin History of Present Illness This is an 79-year-old female patient who presents to the emergency room with chief complaint of headache and dizziness. The patient reports checking her blood pressure at home and noticing that her systolic blood pressure was reaching greater than 200s. She was brought to the emergency room further evaluation. At the time of assessment, the patient is in the emergency room lobby, not connected to any cardiac monitors. Initial twelve lead electrocardiogram found in patient's hard chart reveals normal sinus rhythm without any significant ST segment changes. Initial troponin level of 24ng/L with up trend and current peak level at 84ng/L. Significant past medical history includes hypertension, dyslipidemia, type 2 diabetes mellitus, restless legs syndrome, and dementia. 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 Of note, the patient underwent a coronary angiogram with left heart catheterization on 12/26/2023 in which no catheter based intervention was necessary. Past Medical History Past medical history reviewed. No other significant than mentioned above. Past Surgical History Partial thyroidectomy Cholecystectomy Hysterectomy Family History: FH: emphysema G8 FATHER FH: lung cancer G8 FATHER FH: multiple myeloma G8 MOTHER, , Age: 92 Family History Family history reviewed. Social History Patient has a 14 pack-year history, quit smoking approximately 20 years ago Denies illicit drug use Denies any alcohol use Allergies: Coded Allergies: NO KNOWN ALLERGIES (Unverified , 03/21/22) Home Meds Active Scripts Senna (Senokot Extra Strength) 17.2 Mg Tab, 17.2 MG PO QPM, #30 TAB Prov:MAX LAWRENCE MD 09/01/24 Reported Medications Memantine Hydrochloride (Memantine HCl) 10 Mg Tab, 10 MG PO BID for memory, TAB 12/20/23 Gabapentin (Gabapentin) 300 Mg Cap, 300 MG PO QAM, MG 12/20/23 Donepezil Hydrochloride (DONEPEZIL HCL) 5 Mg Tab, 5 MG PO DAILY for dementia, MG 12/20/23 Acetaminophen (Tylenol Extra Strength) 500 Mg Tab, 500 MG PO PRN, TAB 12/20/23 Sucralfate (Sucralfate) 1 Gm Tab, 1 GM PO BIDP PRN for gerd, GM 9/3/24 Famotidine (Famotidine) 20 Mg Tab, 20 MG PO BID, MG 12/20/23 Ropinirole Hydrochloride (Ropinirole Hcl) 0.5 Mg Tab, 0.5 MG PO HS, TAB 12/20/23 Coenzyme Q10 (Coq10) Unknown Strength Cap, PO, CAP 01/05/23 Fenofibrate (Fenofibrate) 160 Mg Tab, 160 MG PO DAILY, TAB 01/05/23 Cholecalciferol (D3 2000) 2,000 Unit Tab, 5000 UNIT PO, TAB 07/12/22 Multiple Vitamin (Multivitamins) Tab, 1 TAB PO DAILY, #90 TAB 3 Refills 07/12/22 Losartan Potassium (Losartan Potassium) 25 Mg Tab, 2 TAB PO DAILY 03/22/22 Amitriptyline HCl (Amitriptyline Hydrochlori) 50 Mg Tab, 2 TAB PO HS 03/22/22 Atorvastatin Calcium (ATORVASTATIN CALCIUM) 40 Mg Tab, 1 TAB PO HS 03/22/22 Home Meds Home medications reviewed. Current Medications Current Medications Medications (Trade) Dose Ordered Sig/Sam Route PRN Reason Start Time Stop Time Status Last Admin Pantoprazole Sodium (Protonix) 40 mg DAILY IV 12/27/24 10:00 Aspirin 81 mg DAILY PO 12/27/24 10:00 Atorvastatin Calcium (Lipitor) 40 mg HS PO 12/27/24 22:00 Nitroglycerin (Ntrostat Sublingual) 0.4 mg Q5MINP PRN SL FOR CHEST PAIN 12/27/24 06:45 Morphine Sulfate 2 mg Q30M PRN IV FOR CHEST PAIN 12/27/24 06:45 Donepezil HCl (Aricept Tablet) 5 mg DAILY PO 12/27/24 10:00 Gabapentin (Neurontin Capsule) 300 mg QAM PO 12/27/24 07:00 Losartan Potassium (Cozaar Tablet) 50 mg DAILY PO 12/27/24 10:00 Multivitamins (Mvi Tab) 1 tab DAILY PO 12/27/24 10:00 Sucralfate (Carafate Tab) 1 gm BIDP PRN PO gerd 12/27/24 07:00 Amitriptyline HCl (Elavil Tablet) 50 mg HS PO 12/27/24 22:00 Future Hold Memantine (Namenda Tablet) 10 mg BID PO 12/27/24 10:00 Patient Own Medication 1 mg HS PO 12/27/24 22:00 Sennosides (Senokot Tablet) 17.2 mg QPM PRN PO FOR CONSTIPATION 12/27/24 09:15 Duloxetine HCl (Cymbalta Capsule) 60 mg DAILY PO 12/27/24 10:00 Baclofen (Liorisal Tablet) 20 mg Q8HPRN PRN PO FOR MUSCLE SPASM 12/27/24 07:00 Gabapentin (Neurontin Capsule) 600 mg QPM PO 12/27/24 18:00 Review of Systems Constitutional: No symptom reported Ears, Nose, & Throat: No symptom reported Eyes: No symptom reported Neurological: Headache, dizziness Pulmonary/Respiratory: No symptoms reported Cardiovascular: No symptom reported Gastrointestinal: No symptom reported Genitourinary: No symptom reported Musculoskeletal: No symptom reported Skin: No symptom reported Psychiatric: No symptom reported Endocrine: No symptom reported Hematologic/Lymphatic: No symptom reported Vital Signs Vital Signs Date Time Temp Pulse Resp B/P (MAP) Pulse Ox O2 Delivery O2 Flow Rate FiO2 12/27/24 05:21 67 18 146/67 (93) 97 12/27/24 03:00 97.9 97.9 Physical Exam General Appearance: Cooperative. Well-developed. Well-nourished. No acute distress. Pulmonary/Respiratory: Clear, bilateral breaths sounds. Cardiovascular/Chest: Regular rate and rhythm. Peripheral Pulses: 2+ Radial (R). 2+ Radial (L). 2+ Pedal (R). 2+ Pedal (L) Abdominal Exam: Normal bowel sounds. Ankle Exam: Negative ankle edema Lower extremities: Negative lower extremity edema Neuro/Mental Status: A/OX4, coherent. Thoughts/Psych: Normal thought pattern. Appropriate mood and affect. Good judgment and insight. Appearance: No acute distress. Skin Exam: Normal inspection. Normal color. Warm and dry. Labs/Diagnostic Data Labs Test 12/27/24 09:12 12/27/24 03:07 Range/Units White Blood Count 6.2 4.4-10.8 10^3/uL Red Blood Count 4.44 4.0-5.20 10^6/uL Hemoglobin 14.4 12.2-16.2 g/dL Hematocrit 41.1 36.0-46.0 % Mean Corpuscular Volume 92.6 80.0-100.0 fL Mean Corpuscular Hemoglobin 32.4 H 28.0-32.0 pg Mean Corpuscular Hemoglobin Concent 35.0 32.0-36.0 g/dL Red Cell Distribution Width 14.0 11.8-14.3 % Platelet Count 251 140-450 10^3/uL Mean Platelet Volume 7.6 6.9-10.8 fL Neutrophils (%) (Auto) 49.9 37.0-80.0 % Lymphocytes (%) (Auto) 37.6 10.0-50.0 % Monocytes (%) (Auto) 9.0 0.0-12.0 % Eosinophils (%) (Auto) 2.4 0.0-7.0 % Basophils (%) (Auto) 1.1 0.0-2.0 % Neutrophils # (Auto) 3.1 1.6-8.6 10 ^3/uL Lymphocytes # (Auto) 2.3 0.4-5.4 10 ^3/uL Monocytes # (Auto) 0.6 0-1.3 10 ^3/uL Eosinophils # (Auto) 0.1 0-0.8 10 ^3/uL Basophils # (Auto) 0.1 0-0.2 10 ^3/uL Nucleated Red Blood Cells 0.1 % Sodium Level 138 136-145 mmol/L Potassium Level 4.3 3.5-5.1 mmol/L Chloride Level 102 98-107 mmol/L Carbon Dioxide Level 28 20-31 mmol/L Anion Gap 8 5-15 Blood Urea Nitrogen 7 L 9-23 mg/dL Creatinine 0.79 0.550-1.02 mg/dL Glomerular Filtration Rate Calc 75 >90 mL/min BUN/Creatinine Ratio 8.9 L 10.0-20.0 Serum Glucose 107 H 74-106 mg/dL Calcium Level 9.7 8.7-10.4 mg/dL Total Bilirubin 0.5 0.2-1.0 mg/dL Aspartate Amino Transferase (AST) 42 H 13-40 U/L Alanine Aminotransferase (ALT) 40 7-40 U/L Alkaline Phosphatase 81 46-116 U/L Total Protein 6.9 5.7-8.2 g/dL Albumin 4.7 3.2-4.8 g/dL Assessment Hypertensive urgency NSTEMI type II secondary to above Rule out structural heart disease Dyslipidemia Type 2 diabetes mellitus Restless legs syndrome Dementia Plan/Recommendation We will continue with the following plan/recommendations (Dr. Lopez): * Transthoracic echocardiogram to evaluate cardiac function * Aggressive blood pressure control as tolerated * Continue lipid-lowering agent * Bilateral carotid ultrasound * Close Cardiac surveillance Case discussed with . Thank you for allowing us to care for this patient. Please call with any questions or concerns. Critical care time spent: 44 minutes This medical document was created using an electronic medical record system with voice recognition software and computerized dictation system. Although this document has been carefully reviewed, there might still be some phonetic and typographical errors. Occasional wrong-word or ``sound-alike substitutions may have occurred due to the inherent limitations of voice recognition software. These areas are purely typographical due to imperfections of the software programs and do not reflect any compromise in the patient's medical care. Please read the chart carefully and recognize, using context, where these substitutions have occurred. Plan discussed with: Patient NYHA Physical activity limitations: NA Date of Service: Dec 27, 2024 Billing Provider: SALENA GARCIA Cardiology Common Codes: [id number] INP/OBS CARE (High) Cardiology Consultation Codes: [id number] CONSULT <45MIN SAÚL LOPEZ MD 12/27/24 1417: Family History: FH: emphysema G8 FATHER FH: lung cancer G8 FATHER FH: multiple myeloma G8 MOTHER, , Age: 92 Allergies: Coded Allergies: NO KNOWN ALLERGIES (Unverified , 03/21/22) Home Meds Active Scripts Senna (Senokot Extra Strength) 17.2 Mg Tab, 17.2 MG PO QPM, #30 TAB Prov:MAX LAWRENCE MD 09/01/24 Reported Medications Memantine Hydrochloride (Memantine HCl) 10 Mg Tab, 10 MG PO BID for memory, TAB 12/20/23 Gabapentin (Gabapentin) 300 Mg Cap, 300 MG PO QAM, MG 12/20/23 Donepezil Hydrochloride (DONEPEZIL HCL) 5 Mg Tab, 5 MG PO DAILY for dementia, MG 12/20/23 Acetaminophen (Tylenol Extra Strength) 500 Mg Tab, 500 MG PO PRN, TAB 12/20/23 Sucralfate (Sucralfate) 1 Gm Tab, 1 GM PO BIDP PRN for gerd, GM 12/20/23 Famotidine (Famotidine) 20 Mg Tab, 20 MG PO BID, MG 12/20/23 Ropinirole Hydrochloride (Ropinirole Hcl) 0.5 Mg Tab, 0.5 MG PO HS, TAB 12/20/23 Coenzyme Q10 (Coq10) Unknown Strength Cap, PO, CAP 01/05/23 Fenofibrate (Fenofibrate) 160 Mg Tab, 160 MG PO DAILY, TAB 01/05/23 Cholecalciferol (D3 2000) 2,000 Unit Tab, 5000 UNIT PO, TAB 07/12/22 Multiple Vitamin (Multivitamins) Tab, 1 TAB PO DAILY, #90 TAB 3 Refills 07/12/22 Losartan Potassium (Losartan Potassium) 25 Mg Tab, 2 TAB PO DAILY 03/22/22 Amitriptyline HCl (Amitriptyline Hydrochlori) 50 Mg Tab, 2 TAB PO HS 03/22/22 Atorvastatin Calcium (ATORVASTATIN CALCIUM) 40 Mg Tab, 1 TAB PO HS 03/22/22 Plan/Recommendation PT SEEN WITH PRESCHOOL ASSISTANT PRINCIPAL PT IS IN LOBBY NOW BP IS VERY HIGH NEGATIVE CATH IN PAST HEAD CT IS DONE CONTROL BP SALENA GARCIA Dec 27, 2024 10:29 SAÚL LOPEZ MD Dec 27, 2024 14:17
[2024-12-27 10:35] VITALS: PULSE 84; RESP 20; O2SAT 95
[2024-12-27] MEDS: BACLOFEN 10 MG TAB PO PRN (11:05)
[2024-12-27] MEDS: SUCRALFATE 1 GM TAB PO PRN (11:05)
[2024-12-27] MEDS: MEMANTINE HCL 5 MG TAB PO SCH (11:05)
[2024-12-27] MEDS: DONEPEZIL HYDROCHLORIDE 5 MG TAB PO SCH (11:05)
[2024-12-27] MEDS: MULTIPLE VITAMIN TAB PO SCH (11:05)
[2024-12-27] MEDS: SENNA 8.6 MG TAB PO PRN (11:05)
[2024-12-27] MEDS: ONDANSETRON HCL 4 MG/2 ML VIAL IV ONE (11:06)
[2024-12-27] MEDS: GABAPENTIN 300 MG CAP PO SCH ×2 (11:06→18:04)
[2024-12-27] MEDS: PANTOPRAZOLE 40 MG/10 ML VIAL INJ IV SCH (11:06)
[2024-12-27] MEDS: LABETALOL HCL 20 MG/4 ML VL IV ONE (11:11)
[2024-12-27] MEDS: LOSARTAN POTASSIUM 25 MG TAB PO SCH (11:14)
[2024-12-27] MEDS: LOSARTAN POTASSIUM 25 MG TAB PO ONE (12:38)
[2024-12-27 12:46] LABS: Triglycerides 73.0 mg/dL (< 150)
[2024-12-27 12:47] LABS: Magnesium 1.9 mg/dL (1.6-2.6)
[2024-12-27 12:48] LABS: Cholesterol 116.0 mg/dL (< 200); HDL Cholesterol 58.0 mg/dL (40-59)
--- NOTE | 2024-12-27 13:26 | DVH ---
Carotid Duplex Date: 12/27/2024 12:12 PM Clinical History: dizziness Comparison: CAROTID DUPLX W COLOR DOP on DOS: 03/21/22 Technique: Duplex Doppler evaluation of the extracranial carotid and vertebral arteries including col or Doppler and spectral/pulsed waveform analysis was performed. Findings: Velocities and ratios within normal limits IMPRESSION: No hemodynamically significant stenosis noted in the right carotid system. No hemodynamically significant stenosis noted in the left carotid system. Reference: Radiology 2003; 229:[id number]
[2024-12-27] MEDS: hydrALAZINE HCL 20 MG/ML VL IV PRN (15:49)
[2024-12-27 17:30] VITALS: BP 145/80; PULSE 62; RESP 18; TEMP 98; O2SAT 98
[2024-12-27 18:00] VITALS: BP 156/79; PULSE 72; RESP 17; TEMP 97.9; O2SAT 96
[2024-12-27 20:00] VITALS: PULSE 75; RESP 16; O2SAT 95
[2024-12-27 21:00] VITALS: BP 124/66; PULSE 75; RESP 16; TEMP 97.8; O2SAT 95
[2024-12-27] MEDS: ATORVASTATIN 20 MG TAB PO SCH (21:57)
[2024-12-27] MEDS: ROPINIROLE HYDROCHLORIDE 1 MG PO SCH (21:59)
[2024-12-27] MEDS ORDERED: AMITRIPTYLINE HCL 25 MG TAB PO SCH (22:00)
[2024-12-27] MEDS: ENOXAPARIN SOD 40 MG/0.4 ML SYRINGE SC SCH (23:48)
[2024-12-28] VITALS (9 sets, daily range): BP systolic 103–145; BP diastolic 53–71; PULSE 63–76; RESP 16–21; TEMP 97.7–98.4; O2SAT 91–95
[2024-12-28] MEDS: LOSARTAN POTASSIUM 25 MG TAB PO SCH (09:55)
--- NOTE | 2024-12-28 10:23 | DVHPN2 ---
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 Denies any cardiac symptoms at time of assessment Objective vital signs Vital Sign Date Time Temp Pulse Resp B/P (MAP) Pulse Ox O2 Delivery O2 Flow Rate FiO2 12/28/24 09:55 133/68 12/28/24 08:29 97.9 68 21 93 97.9 12/27/24 20:00 Room Air* 0 21 Total Intake and Output 12/27/24 12/27/24 12/28/24 15:00 23:00 07:00 Intake Total 400 ml 0 ml Balance 400 ml 0 ml medications Current Medications Medications Dose Ordered Sig/Sam Route Start Time Stop Time Status Last Admin Dose Admin Pantoprazole Sodium 40 mg DAILY IV 12/27/24 10:00 12/28/24 09:55 40 MG Aspirin 81 mg DAILY PO 12/27/24 10:00 12/28/24 09:55 81 MG Atorvastatin Calcium 40 mg HS PO 12/27/24 22:00 12/27/24 21:57 40 MG Nitroglycerin 0.4 mg Q5MINP PRN SL 12/27/24 06:45 Morphine Sulfate 2 mg Q30M PRN IV 12/27/24 06:45 Donepezil HCl 5 mg DAILY PO 12/27/24 10:00 12/28/24 09:55 5 MG Gabapentin 300 mg QAM PO 12/27/24 07:00 12/28/24 06:00 300 MG Multivitamins 1 tab DAILY PO 12/27/24 10:00 12/28/24 09:54 1 TAB Sucralfate 1 gm BIDP PRN PO 12/27/24 07:00 12/27/24 11:05 1 GM Amitriptyline HCl 50 mg HS PO 12/27/24 22:00 Hold Memantine 10 mg BID PO 12/27/24 10:00 12/28/24 09:54 10 MG Patient Own Medication 1 mg HS PO 12/27/24 22:00 Sennosides 17.2 mg QPM PRN PO 12/27/24 09:15 12/27/24 11:05 17.2 MG Duloxetine HCl 60 mg DAILY PO 12/27/24 10:00 12/28/24 09:54 60 MG Baclofen 20 mg Q8HPRN PRN PO 12/27/24 07:00 12/28/24 05:27 20 MG Gabapentin 600 mg QPM PO 12/27/24 18:00 12/27/24 18:04 600 MG Hydralazine HCl 10 mg Q6HP PRN IV 12/27/24 11:00 12/27/24 15:49 10 MG Losartan Potassium 75 mg DAILY PO 12/28/24 10:00 12/28/24 09:55 75 MG Enoxaparin Sodium 40 mg DAILY SC 12/27/24 23:30 12/28/24 09:56 40 MG Examination: GENERAL:Normal, LUNGS:Normal, CVS:Normal, NEURO:Normal laboratory and microbiology Laboratory Tests 12/27/24 03:07 Test 12/27/24 03:07 Range/Units Serum Glucose 107 H 74-106 mg/dL Problem List/Assessment/Plan Problem List/Assessment/Plan Hypertensive urgency, resolved NSTEMI type II secondary to above Rule out structural heart disease Dyslipidemia Type 2 diabetes mellitus Restless legs syndrome Dementia Plan/Recommendations (Dr. Sanchez): * Transthoracic echocardiogram to evaluate cardiac function * Aggressive blood pressure control as tolerated * Continue lipid-lowering agent * Bilateral carotid ultrasound: Negative for stenosis * Close Cardiac surveillance Case discussed with . Blood pressure well controlled today. In the setting of an unremarkable transthoracic echocardiogram, there is no further inpatient cardiac workup indicated at this time. Thank you for allowing us to care for this patient. Please call with any questions or concerns. This medical document was created using an electronic medical record system with voice recognition software and computerized dictation system. Although this document has been carefully reviewed, there might still be some phonetic and typographical errors. Occasional wrong-word or ``sound-alike substitutions may have occurred due to the inherent limitations of voice recognition software. These areas are purely typographical due to imperfections of the software programs and do not reflect any compromise in the patient's medical care. Please read the chart carefully and recognize, using context, where these substitutions have occurred. Plan discussed with: Patient Date of Service: Dec 28, 2024 Billing Provider: SALENA GARCIA Common Visit Codes: [id number] INP/OBS CARE(HIGH) SALENA GARCIA Dec 28, 2024 10:22
[2024-12-28 14:11] LABS: Calcium 9.7 mg/dL (8.7-10.4); Carbon Dioxide 23 mmol/L (20-31)
[2024-12-28 14:15] LABS: Anion Gap 14 (5-15); Chloride 102 mmol/L (98-107); Potassium 4.0 mmol/L (3.5-5.1); Sodium 139 mmol/L (136-145)
[2024-12-28 14:16] LABS: BUN/Creatinine Ratio 12.9 (10.0-20.0); Glucose 91 mg/dL (74-106)
[2024-12-28 14:17] LABS: Blood Urea Nitrogen 8 mg/dL (9-23)
[2024-12-28] MEDS ORDERED: LOS25T PO (14:59)
[2024-12-28] MEDS ORDERED: ASPI-325 PO (14:59)
--- NOTE | 2024-12-28 15:02 | DVHDS2 ---
Discharge Summary Date of Admission Dec 27, 2024 at 06:40 Date of Discharge: Dec 28, 2024 Labs/Diagnostic Data: Laboratory Results Test 12/28/24 05:23 12/27/24 14:04 12/27/24 09:12 12/27/24 03:07 Sodium Level 139 mmol/L (136-145) Potassium Level 4.0 mmol/L (3.5-5.1) Chloride Level 102 mmol/L (98-107) Carbon Dioxide Level 23 mmol/L (20-31) Anion Gap 14 (5-15) Blood Urea Nitrogen 8 mg/dL (9-23) Creatinine 0.62 mg/dL (0.550-1.02) Glomerular Filtration Rate Calc 89 mL/min (>90) BUN/Creatinine Ratio 12.9 (10.0-20.0) Serum Glucose 91 mg/dL (74-106) Calcium Level 9.7 mg/dL (8.7-10.4) Troponin I High Sensitivity 121 ng/L (</=34) Creatine Kinase 108 U/L (34-145) Magnesium Level 1.9 mg/dL (1.6-2.6) Triglycerides Level 73 mg/dL (< 150) Cholesterol Level 116 mg/dL (< 200) LDL Cholesterol 45 mg/dL (< 100) HDL Cholesterol 58 mg/dL (40-59) Thyroid Stimulating Hormone (TSH) 2.57 uIU/mL (0.55-4.78) White Blood Count 6.2 10^3/uL (4.4-10.8) Red Blood Count 4.44 10^6/uL (4.0-5.20) Hemoglobin 14.4 g/dL (12.2-16.2) Hematocrit 41.1 % (36.0-46.0) Mean Corpuscular Volume 92.6 fL (80.0-100.0) Mean Corpuscular Hemoglobin 32.4 pg (28.0-32.0) Mean Corpuscular Hemoglobin Concent 35.0 g/dL (32.0-36.0) Red Cell Distribution Width 14.0 % (11.8-14.3) Platelet Count 251 10^3/uL (140-450) Mean Platelet Volume 7.6 fL (6.9-10.8) Neutrophils (%) (Auto) 49.9 % (37.0-80.0) Lymphocytes (%) (Auto) 37.6 % (10.0-50.0) Monocytes (%) (Auto) 9.0 % (0.0-12.0) Eosinophils (%) (Auto) 2.4 % (0.0-7.0) Basophils (%) (Auto) 1.1 % (0.0-2.0) Neutrophils # (Auto) 3.1 10 ^3/uL (1.6-8.6) Lymphocytes # (Auto) 2.3 10 ^3/uL (0.4-5.4) Monocytes # (Auto) 0.6 10 ^3/uL (0-1.3) Eosinophils # (Auto) 0.1 10 ^3/uL (0-0.8) Basophils # (Auto) 0.1 10 ^3/uL (0-0.2) Nucleated Red Blood Cells 0.1 % Hemoglobin A1c 5.0 % A1C (<5.7) Total Bilirubin 0.5 mg/dL (0.2-1.0) Aspartate Amino Transferase (AST) 42 U/L (13-40) Alanine Aminotransferase (ALT) 40 U/L (7-40) Alkaline Phosphatase 81 U/L (46-116) Total Protein 6.9 g/dL (5.7-8.2) Albumin 4.7 g/dL (3.2-4.8) Other Laboratory Tests 12/28/24 05:23 12/27/24 03:07 Brief Hx & Hospital Course: 79-year-old female with a known history of hypertension, dyslipidemia, diabetes mellitus type 2, peripheral neuropathy, restless leg syndrome, early dementia presented to the hospital with a headache dizziness found to have elevated troponin. Patient also has a hypertensive urgency. 2D echo was done cardiology was consulted. No indication for inpatient workup as patient's elevated troponin are suspected non-STEMI type 2 secondary to uncontrolled hypertension. Patient currently denies any symptoms. Patient's losartan dose was increased and aspirin 81 was added. Patient is being discharged under stable condition. Condition at Discharge: Stable Final Diagnosis/Problems List 79-year-old female with a known history of hypertension, dyslipidemia, diabetes mellitus type 2, peripheral neuropathy, restless leg syndrome, early dementia presented to the hospital with a headache dizziness found to have 1. Hypertensive urgency 2. Elevated troponin suspect NSTEMI type 2 secondary to uncontrolled hypertension 3. Diabetes mellitus type 2 4. Dyslipidemia and hypertriglyceridemia 5. Peripheral neuropathy 6. Restless leg syndrome with the leg cramps 6. Early cognitive decline Discharge Disposition: Home with Health Services SNF Discharge Will this Physician continue t: No Discharge Instruct/Medications Diet: Cardiac 2g Na,low cholest Activity: No Restrictions, As Tolerated Follow Up/Referral: Follow up with the PCP in one week with a repeat BMP as losartan dose has been increased. Follow up with the Cardiology in 1-2 weeks. Medications: Resume home medications, new prescription as prescribed. New Medications: Losartan Potassium (Losartan Potassium) 25 Mg Tab 75 MG PO DAILY for 60 Days, #180 TAB Aspirin (Aspirin Low Dose) 81 Mg Tab 81 MG PO DAILY, #60 TAB Continued Medications: Acetaminophen (Tylenol Extra Strength) 500 Mg Tab 500 MG PO PRN, TAB Amitriptyline HCl (Amitriptyline Hydrochlori) 50 Mg Tab 2 TAB PO HS Atorvastatin Calcium (Atorvastatin Calcium) 40 Mg Tab 1 TAB PO HS Cholecalciferol (D3 2000) 2,000 Unit Tab 5000 UNIT PO, TAB Coenzyme Q10 (Coq10) Unknown Strength Cap Unknown Dose PO, CAP Donepezil Hydrochloride (Donepezil Hcl) 5 Mg Tab 5 MG PO DAILY for dementia, MG Famotidine (Famotidine) 20 Mg Tab 20 MG PO BID, MG Fenofibrate (Fenofibrate) 160 Mg Tab 160 MG PO DAILY, TAB Gabapentin (Gabapentin) 300 Mg Cap 300 MG PO QAM, MG Memantine Hydrochloride (Memantine HCl) 10 Mg Tab 10 MG PO BID for memory, TAB Multiple Vitamin (Multivitamins) Tab 1 TAB PO DAILY, #90 TAB 3 Refills Ropinirole Hydrochloride (Ropinirole Hcl) 0.5 Mg Tab 0.5 MG PO HS, TAB Senna (Senokot Extra Strength) 17.2 Mg Tab 17.2 MG PO QPM, #30 TAB Sucralfate (Sucralfate) 1 Gm Tab 1 GM PO BIDP PRN for gerd, GM Discontinued Medications: Losartan Potassium (Losartan Potassium) 25 Mg Tab 2 TAB PO DAILY Scheduled Acetaminophen (Tylenol Extra Strength), 500 MG PO PRN, (Reported) Amitriptyline HCl (Amitriptyline Hydrochlori), 2 TAB PO HS, (Reported) Aspirin (Aspirin Low Dose), 81 MG PO DAILY Atorvastatin Calcium (Atorvastatin Calcium), 1 TAB PO HS, (Reported) Donepezil Hydrochloride (Donepezil Hcl), 5 MG PO DAILY, (Reported) Famotidine (Famotidine), 20 MG PO BID, (Reported) Fenofibrate (Fenofibrate), 160 MG PO DAILY, (Reported) Gabapentin (Gabapentin), 300 MG PO QAM, (Reported) Losartan Potassium (Losartan Potassium), 2 TAB PO DAILY, (Reported) Losartan Potassium (Losartan Potassium), 75 MG PO DAILY Memantine Hydrochloride (Memantine HCl), 10 MG PO BID, (Reported) Multiple Vitamin (Multivitamins), 1 TAB PO DAILY, (Reported) Ropinirole Hydrochloride (Ropinirole Hcl), 0.5 MG PO HS, (Reported) Senna (Senokot Extra Strength), 17.2 MG PO QPM Scheduled PRN Sucralfate (Sucralfate), 1 GM PO BIDP PRN for gerd, (Reported) Miscellaneous Medications Cholecalciferol (D3 2000), 5,000 UNIT PO, (Reported) Coenzyme Q10 (Coq10), Unknown Dose PO, (Reported) Discharge Statement: "Patient was advised to return to the ER or call 911 if any headaches, dizziness, shortness of breath, chest pain, abdominal pain, bleeding, fevers, or worsening of medical condition. Patient was counseled about treatment plan, medications, possible side effects, patientverbalized understanding. All questions were answered to the best of my ability. This discharge took greater then 30 minutes in planning, reviewing documentation, counseling the patient, and discussing with other team members." ASSESSMENT ASSESSMENT Assessment 79-year-old female with a known history of hypertension, dyslipidemia, diabetes mellitus type 2, peripheral neuropathy, restless leg syndrome, early dementia presented to the hospital with a headache dizziness found to have 1. Hypertensive urgency 2. Elevated troponin suspect NSTEMI type 2 secondary to uncontrolled hypertension 3. Diabetes mellitus type 2 4. Dyslipidemia and hypertriglyceridemia 5. Peripheral neuropathy 6. Restless leg syndrome with the leg cramps 6. Early cognitive decline Date of Service: Dec 28, 2024 Billing Provider: TIN ENGLAND MD Common Visit Codes: NOT BILLABLE TIN ENGLAND MD Dec 28, 2024 15:02
[2024-12-29 01:06] VITALS: BP 148/72; PULSE 70; RESP 16; TEMP 97.7; O2SAT 96
[2024-12-29 05:00] VITALS: BP 144/73; PULSE 72; RESP 16; TEMP 98.2; O2SAT 92
[2024-12-29 08:00] VITALS: PULSE 71; PULSE 77; RESP 18; O2SAT 92
[2024-12-29 09:00] VITALS: BP 147/78; PULSE 77; RESP 18; TEMP 97.6; O2SAT 91
[2024-12-29 12:35] VITALS: BP 153/87; PULSE 79; RESP 20; TEMP 98.4; O2SAT 94
[2024-12-29] MEDS: ACETAMINOPHEN 325 MG TAB PO PRN (13:00)
[2024-12-29 17:20] VITALS: BP 148/83; PULSE 70; RESP 20; TEMP 98.3; O2SAT 94
--- NOTE | 2024-12-29 17:23 | DVHSR ---
APPROVED REPORT EXAM: LIMITED Two-dimensional and M-mode echocardiogram with Doppler and color Doppler. Blood Pressure: 145/69 mmHg INDICATION Dizziness and Vertigo Elevated Troponin RISK FACTORS Height: 5' 4", Weight: 133 DIMENSIONS LVDd5.0 (3.8-5.7cm)LA (2D)3.4 (1.9-4.0cm)Aortic Root3.3 (2.0-3.7cm) LVDs3.3 (2.5-4.0cm)LA (MM) (1.9-4.0cm)Aortic Cusp Exc1.8 (1.5-2.0cm) EF (%) 63.0 (55-70%)Rt. Atrium3.2 (1.9-4.0cm)Asc. Aorta cm IVSd1.0 (0.7-1.1cm)RV (D) (1.8-2.4cm) PWd0.7 (0.7-1.1cm) Mitral Valve MitralMitral Stenosis E wave0.70m/sMV Mean GR.mmHg A wave1.00m/sMV Peak GR.mmHg E/A ratio0.72D MVAcm2 Aortic Valve Aortic ValveAortic Stenosis V11.16m/Ceasar Mean GR.mmHg V21.30m/[place]ar Peak GR.mmHg LVOT Diameter2.1 (1.8-2.4cm)Doppler AVA3.09cm2 Tricuspid Valve TR Velocity2.50m/s [id number] Other Information Quality : Technically LimitedRhythm : Technically limited study due to body habitus. Conclusion Technically good study. Off axis views. Sinus rhythm. Concentric hypertrophy with aortic root enlargement. Valves are otherwise structurally normal. Left ventricular function is preserved at 65% with normal RV function. Mild TR. No pericardial effusion masses or vegetations.
== END 2024-12-29 17:45 | disposition home or self-care (01) | DRG 282 ==
LOC: EDBD 02:50 → EDUNIT# 02:50 → ER 02:50 → OVERFLOW 06:40 → TELE-WESTW 17:25
PROVIDERS: ADMIT Internal Medicine; ATTEND Internal Medicine
DX: I16.0 Hypertensive urgency (principal); I21.A1 Myocardial infarction type 2; E11.42 Type 2 diabetes mellitus with diabetic polyneuropathy; F03.90 Unspecified dementia, unspecified severity, without behavioral disturbance, psychotic disturbance, mood disturbance, and anxiety; G25.81 Restless legs syndrome; E78.1 Pure hyperglyceridemia; Z79.899 Other long term (current) drug therapy; Z90.710 Acquired absence of both cervix and uterus; Z90.49 Acquired absence of other specified parts of digestive tract; Z80.1 Family history of malignant neoplasm of trachea, bronchus and lung; Z80.7 Family history of other malignant neoplasms of lymphoid, hematopoietic and related tissues; Z82.5 Family history of asthma and other chronic lower respiratory diseases; Z79.82 Long term (current) use of aspirin; Z79.84 Long term (current) use of oral hypoglycemic drugs
CPT/HCPCS: 36415; 70450; 71045; 80048; 80053; 80061; 82550; 83036; 83735; 84443; 84484; 85025; 87081; 93005; 93306; 93886; 96374; 97110; 97116; 97163; 97530; 99291; G0378; J2405; J2470

== ENCOUNTER 2024-12-30 23:38 | Inpatient (IN) | payer OTHER ==
[~2024-12-30] VITALS: Ht 152.4 cm; Wt 56.2 kg
[~2024-12-30 23:38] MED LIST changes: +ASPI-325 PO
[2024-12-30 23:59] VITALS: O2SAT 95
[2024-12-31 00:37] LABS: Hematocrit 38.8 % (36.0-46.0); Hemoglobin 13.4 g/dL (12.2-16.2); Mean Corpuscular Hemoglobin 31.5 pg (28.0-32.0); Mean Corpuscular Volume 91.4 fL (80.0-100.0); Nucleated Red Blood Cells % 0.1 %
--- NOTE | 2024-12-31 00:37 | DVH ---
CHEST RADIOGRAPH Indication: cp Technique: Single frontal view of the chest was obtained COMPARISON: XY CHEST XRAY 1 VIEW on DOS: 12/27/24, XY CHEST PORTABLE on DOS: 07/30/24, XY CHEST TWO VIE WS ROUTINE on DOS: 07/12/22, CHEST PORTABLE on DOS: 03/21/22 FINDINGS: Lines and Tubes: None Lungs: Clear Pleura: No effusion. No pneumothorax. Cardiomediastinal contours: Unremarkable Bones: Unremarkable IMPRESSION: 1. No acute disease.
[2024-12-31 00:46] LABS: Chloride 98 mmol/L (98-107); Potassium 3.7 mmol/L (3.5-5.1)
[2024-12-31 00:47] LABS: Anion Gap 10 (5-15); Calcium 9.8 mg/dL (8.7-10.4); Carbon Dioxide 27 mmol/L (20-31); Sodium 135 mmol/L (136-145)
[2024-12-31] MEDS: LABETALOL HCL 20 MG/4 ML VL IV ONE (00:51)
[2024-12-31 00:52] LABS: BUN/Creatinine Ratio 17.7 (10.0-20.0); Blood Urea Nitrogen 11 mg/dL (9-23); Glucose 90 mg/dL (74-106)
[2024-12-31] MEDS: ACETAMINOPHEN 500 MG TAB or CAP PO ONE ×2 (01:39→01:40)
--- NOTE | 2024-12-31 03:42 | ED.PDOC ---
History of Present Illness HPI Comments 79-year-old female who presents with chief complaint of hypertension, chest pain, and headache. Patient reports taking her blood pressure at home and noticing it being elevated after having sudden unprovoked onset of this evening. Patient was being here 2 days ago and recently being discharged yesterday. She endorses on compliancy refer losartan medication which was recently increased in dosage since last admission. Chest pain and headache has since improved on arrival. Denies any further acute symptoms. REVIEW OF SYSTEMS: General: No fever, no chills, or fatigue HEENT: No sore throat, no earache, no congestion, no neck pain. Cardiac: No chest pain. No palpitations. Lungs: No shortness of breath, no cough. GI: No nausea, no vomiting, no diarrhea, no constipation, no abdominal pain : No dysuria, frequency, or urgency. No hematuria. Musculoskeletal: No joint pain , no joint swelling, no extremity edema. Skin: No rash, no itching. Neuro: No headache, no dizziness, no weakness PHYSICAL EXAM: General: Awake, alert and oriented. No acute distress. Skin: Skin in warm, dry and intact. Appropriate color for ethnicity. HEENT: The head is normocephalic and atraumatic. Conjunctivae are clear without exudates or hemorrhage. Sclera is non-icteric. EOM are intact. No signs of nystagmus. Eyelids are normal in appearance without swelling or lesions. Oral mucosa is pink and moist Neck: The neck is supple with normal range of motion. No JVD. Cardiac: Heart rate and rhythm are normal. No murmurs, gallops, or rubs are auscultated. Respiratory: No signs of respiratory distress. Lung sounds are clear in all lobes bilaterally without rales, rhonchi, or wheezes. Abdominal: Abdomen is soft, non-tender without distention, guarding or rigidity. Bowel sounds are present and normoactive in all four quadrants. Extremities: Upper and lower extremities are atraumatic in appearance without deformity or edema. Neurological: The patient is awake, alert and oriented to person, place, and time with normal speech. Speech is clear. There is no facial asymmetry. Psychiatric: Appropriate mood and affect. Good judgement and insight. Chief Complaint: Chest Pain Time Seen by MD: 00:45 Primary Care Provider: PRETTY Reviewed Notes: Nurses Notes, Executive Sales Assistant Notes, Medications, Allergies Allergies: Coded Allergies: NO KNOWN ALLERGIES (Unverified , 03/21/22) Home Meds Active Scripts Losartan Potassium (Losartan Potassium) 25 Mg Tab, 75 MG PO DAILY for 60 Days, #180 TAB Prov:TIN ENGLAND MD 12/28/24 Aspirin (Aspirin Low Dose) 81 Mg Tab, 81 MG PO DAILY, #60 TAB Prov:TIN ENGLAND MD 12/28/24 Senna (Senokot Extra Strength) 17.2 Mg Tab, 17.2 MG PO QPM, #30 TAB Prov:MAX LAWRENCE MD 09/01/24 Reported Medications Memantine Hydrochloride (Memantine HCl) 10 Mg Tab, 10 MG PO BID for memory, TAB 12/20/23 Gabapentin (Gabapentin) 300 Mg Cap, 300 MG PO QAM, MG 12/20/23 Donepezil Hydrochloride (DONEPEZIL HCL) 5 Mg Tab, 5 MG PO DAILY for dementia, MG 12/20/23 Acetaminophen (Tylenol Extra Strength) 500 Mg Tab, 500 MG PO PRN, TAB 12/20/23 Sucralfate (Sucralfate) 1 Gm Tab, 1 GM PO BIDP PRN for gerd, GM 12/20/23 Famotidine (Famotidine) 20 Mg Tab, 20 MG PO BID, MG 12/20/23 Ropinirole Hydrochloride (Ropinirole Hcl) 0.5 Mg Tab, 0.5 MG PO HS, TAB 12/20/23 Coenzyme Q10 (Coq10) Unknown Strength Cap, PO, CAP 01/05/23 Fenofibrate (Fenofibrate) 160 Mg Tab, 160 MG PO DAILY, TAB 01/05/23 Cholecalciferol (D3 2000) 2,000 Unit Tab, 5000 UNIT PO, TAB 07/12/22 Multiple Vitamin (Multivitamins) Tab, 1 TAB PO DAILY, #90 TAB 3 Refills 07/12/22 Amitriptyline HCl (Amitriptyline Hydrochlori) 50 Mg Tab, 2 TAB PO HS 03/22/22 Atorvastatin Calcium (ATORVASTATIN CALCIUM) 40 Mg Tab, 1 TAB PO HS 03/22/22 Discontinued Reported Medications Losartan Potassium (Losartan Potassium) 25 Mg Tab, 2 TAB PO DAILY 03/22/22 Information Source: Patient, Emergency Med Personnel Mode of Arrival: EMS Past Medical History PAST MEDICAL HISTORY: Dementia, DM, High Lipids, HTN Surgical History: Appendectomy, Cholecystectomy, Hysterectomy 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 Was a procedure done?: No EKG EKG : Pulse Rate (adult): 68 [place]: Normal Cardiac Rhythm: NSR Block: None Hypertrophy: None ST: Normal Differential Dx Considerations may include: Differential diagnoses considered include acute ischemic coronary syndrome, aortic dissection, cardiac tamponade, mediastinitis, pulmonary embolus, pneumothorax, tension pneumothorax, esophageal rupture, coronary artery vasospasm, myocarditis, pericarditis, pneumonia, pulmonary edema, esophageal tear, pancreatitis, aortic stenosis, dilated cardiomyopathy, hypertrophic cardiomyopathy, mitral valve prolapse, malignancy, pleuritis, pneumomediastinum, primary pulmonary hypertension, cholecystitis, esophageal spasm, esophagus, gastritis, GERD, peptic ulcer disease, costochondritis, fibromyalgia, rib fracture, herpes zoster, radicular syndromes, thoracic outlet syndrome, somatization. X-Ray, Labs, Meds, VS Vital Signs Date Time Temp Pulse Resp B/P (MAP) Pulse Ox O2 Delivery O2 Flow Rate FiO2 12/31/24 04:17 98.0 68 18 200/82 (121) 96 98.0 12/31/24 04:00 67 12/31/24 03:30 70 15 180/78 (112) 94 12/31/24 01:51 73 181/75 12/31/24 00:58 72 16 181/75 (110) 93 12/31/24 00:51 72 210/86 12/30/24 23:59 95 Room Air* 0 21 12/30/24 23:58 98.2 71 12 205/90 (128) 93 98.2 12/30/24 23:45 68 12/30/24 23:44 98.4 71 16 161/81 95 98.4 Lab Test 12/31/24 03:55 12/31/24 02:29 12/31/24 00:13 Range/Units Urine Color Light-yellow Yellow Urine Clarity Clear Clear Urine pH 7.0 5.0-9.0 Urine Specific [place] 1.011 1.001-1.035 Urine Protein Negative Negative Urine Ketones Negative Negative Urine Blood Negative Negative /uL Urine Nitrite Negative Negative Urine Bilirubin Negative Negative Urine Urobilinogen 2 H Negative mg/dL Urine Leukocyte Esterase Negative Negative /uL Urine RBC None seen 0 - 4 /hpf Urine Microscopic WBC < 1 0-5 /HPF Urine Squamous Epithelial Cells None seen <5 /hpf Urine Amorphous Crystals Few None Seen /hpf Urine Bacteria None seen None Seen /hpf Urine Glucose Normal Normal mg/dL Troponin I High Sensitivity 41 *H 24 </=34 ng/L White Blood Count 5.7 4.4-10.8 10^3/uL Red Blood Count 4.25 4.0-5.20 10^6/uL Hemoglobin 13.4 12.2-16.2 g/dL Hematocrit 38.8 36.0-46.0 % Mean Corpuscular Volume 91.4 80.0-100.0 fL Mean Corpuscular Hemoglobin 31.5 28.0-32.0 pg Mean Corpuscular Hemoglobin Concent 34.5 32.0-36.0 g/dL Red Cell Distribution Width 13.7 11.8-14.3 % Platelet Count 211 140-450 10^3/uL Mean Platelet Volume 7.6 6.9-10.8 fL Neutrophils (%) (Auto) 55.4 37.0-80.0 % Lymphocytes (%) (Auto) 32.8 10.0-50.0 % Monocytes (%) (Auto) 10.0 0.0-12.0 % Eosinophils (%) (Auto) 0.8 0.0-7.0 % Basophils (%) (Auto) 1.0 0.0-2.0 % Neutrophils # (Auto) 3.1 1.6-8.6 10 ^3/uL Lymphocytes # (Auto) 1.9 0.4-5.4 10 ^3/uL Monocytes # (Auto) 0.6 0-1.3 10 ^3/uL Eosinophils # (Auto) 0 0-0.8 10 ^3/uL Basophils # (Auto) 0.1 0-0.2 10 ^3/uL Nucleated Red Blood Cells 0.1 % Sodium Level 135 L 136-145 mmol/L Potassium Level 3.7 3.5-5.1 mmol/L Chloride Level 98 98-107 mmol/L Carbon Dioxide Level 27 20-31 mmol/L Anion Gap 10 5-15 Blood Urea Nitrogen 11 9-23 mg/dL Creatinine 0.62 0.550-1.02 mg/dL Glomerular Filtration Rate Calc 89 >90 mL/min BUN/Creatinine Ratio 17.7 10.0-20.0 Serum Glucose 90 74-106 mg/dL Calcium Level 9.8 8.7-10.4 mg/dL B-Type Natriuretic Peptide 43.49 0-100 pg/mL Current Medications Medications (Trade) Dose Ordered Sig/Sam Route Start Time Stop Time Status Last Admin Labetalol HCl (Labetalol HCl) 5 mg ONCE ONCE IV 12/31/24 00:45 12/31/24 00:46 DC 12/31/24 00:51 Acetaminophen (Tylenol Tablet Or Capsule) 1,000 mg ONCE ONCE PO 12/31/24 01:30 12/31/24 01:31 DC 12/31/24 01:39 [place] [id number] Ph: [phone] DIAGNOSTIC IMAGING Diagnostic Imaging Report : [id number] Signed PATIENT: JARON TORRES ACCT: [id number] UNIT: [id number] : 1945 LOC: ER ROOM / BED: / AGE / SEX: 79 / F ADM STATUS: REG ER SERVICE 2343 ORDERING PHYSICIAN: CLEVE LYNN MD PROCEDURE(s): CXR1 - CHEST XRAY 1 VIEW REASON: cp ORDER NUMBER(s): [id number], ACCESSION NUMBER(s): [id number] CHEST RADIOGRAPH Indication: cp Technique: Single frontal view of the chest was obtained COMPARISON: XY CHEST XRAY 1 VIEW on DOS: 12/27/24, XY CHEST PORTABLE on DOS: 07/30/24, XY CHEST TWO VIEWS ROUTINE on DOS: 07/12/22, CHEST PORTABLE on DOS: 03/21/22 FINDINGS: Lines and Tubes: None Lungs: Clear Pleura: No effusion. No pneumothorax. Cardiomediastinal contours: Unremarkable Bones: Unremarkable IMPRESSION: 1. No acute disease. ATED BY: J CARLOS MALAVE MD DICTATED DATE/TIME: 12/31/2434 SIGNED BY: J CARLOS MALAVE MD SIGNED DATE/TIME: 12/31/2434 CC: Time of 1ST Reevaluation: 01:15 Reevaluation 1ST: Unchanged Patient Education/Counseling: Treatment Family Education/Counseling: Treatment SEPSIS Sepsis Screen Date sepsis recognized/suspect: Dec 30, 2024 Time Sepsis recognized/suspect: 2346 Recent Procedure: No On Antibiotic Therapy: No Respiratory Rate >20: No Heart Rate >90: No Temp<36 C (96.8 F) or >38.3 C: No SBP <90 or MAP <65 mmHG: No New Acute Mental Status Change: No Is the patient on CPAP, BIPAP,: No Physician Orders Chest Xray 1 View (12/30/24 23:43) Vital Signs Q1HR (12/30/24 23:43) Saline Lock (12/30/24 23:43) Tune Up Mechanic (12/30/24 ) Hydralazine Injection (Apresoline Inject (12/31/24 04:30) Ondansetron Hcl (Zofran) (12/31/24 04:30) Famotidine Tablet (Pepcid Tablet) (12/31/24 10:00) Acetaminophen Tablet (Tylenol Tablet) (12/31/24 04:30) Aspirin Tablet (12/31/24 10:00) Atorvastatin (Lipitor) (12/31/24 22:00) Donepezil Tablet (Aricept Tablet) (12/31/24 10:00) Gabapentin Capsule (Neurontin Capsule) (12/31/24 07:00) Sucralfate Tab (Carafate Tab) (12/31/24 04:30) Memantine Tablet (Namenda Tablet) (12/31/24 10:00) (Nf) Ropinirole Hydrochloride (Ropinirol (12/31/24 22:00) Senna Pod Tablet (Senokot Tablet) (12/31/24 18:00) Amitriptyline Hcl Tablet (Elavil Tablet) (12/31/24 22:00) Losartan Tablet (Cozaar Tablet) (01/01/25 10:00) Vital Signs Date Time Temp Pulse Resp B/P (MAP) Pulse Ox O2 Delivery O2 Flow Rate FiO2 12/31/24 04:17 98.0 68 18 200/82 (121) 96 98.0 12/31/24 04:00 67 12/31/24 03:30 70 15 180/78 (112) 94 9/15/25 01:51 73 181/75 12/31/24 00:58 72 16 181/75 (110) 93 12/31/24 00:51 72 210/86 12/30/24 23:59 95 Room Air* 0 21 12/30/24 23:58 98.2 71 12 205/90 (128) 93 98.2 12/30/24 23:45 68 12/30/24 23:44 98.4 71 16 161/81 95 98.4 Laboratory Tests Test 12/31/24 00:13 White Blood Count 5.7 10^3/uL (4.4-10.8) Departure 1 Departure Time of Disposition: 03:41 Impression: Primary Impression: Chest pain Additional Impression: Hypertensive urgency Disposition: 07 LEFT AWOL/ELOPED Condition: Guarded Comments MDM: 79-year-old female who presented with elevated blood pressure reading at home and chest pain. Labetalol administered in the ED. troponin trending upward. Patient admitted to hospitalist service for further treatment, evaluation and monitoring. Extensive evaluation was performed in attempt to identify or rule out: (See differential diagnosis section) The following tests were ordered, and results were reviewed by me and discussed with patient: (See diagnostic results section) The following test were independently interpreted by me: EKG I reviewed and agreed with the following test results read by other providers: Chest x-ray Additional information was gathered from interviewing the following independent historians: Patient's friend at bedside Discussion of management or test interpretation with external physician/other qualified health customer care agent: Negrita Decision regarding hospitalization or escalation of hospital level of care: Risk and benefits of admission for further treatment of patient's condition was considered. Due to patient's current clinical condition, high risk of decline and poor outcome if discharged and need for further inpatient management and monitoring, patient will be admitted to the hospital. Critical Care Note Critical Care Time?: No Stability Stability form required: No Heart Score Heart Score: Heart Score Response (Comments) Value History Moderate Suspicious 1 EKG Normal 0 Age >65 2 Risk Factors >3 or Hx ASHD 2 Troponin 1-2 x's Normal limit 1 Total 6 I personally scribed for CLEVE LYNN MD ([email or web address]) on 12/31/24 at 04:39. Electronically submitted by Tony Esparza [email or web address]). CLEVE LYNN MD Dec 31, 2024 03:42
[2024-12-31] MEDS ORDERED: SUCRALFATE 1 GM TAB PO PRN (04:30)
[2024-12-31] MEDS ORDERED: ONDANSETRON HCL 4 MG/2 ML VIAL IV PRN (04:30)
[2024-12-31] MEDS ORDERED: NITROGLYCERIN 0.4 MG SL TAB SL PRN (04:45)
--- NOTE | 2024-12-31 04:47 | DVHHP2 ---
Admitting Diagnosis: Hypertensive Urgency, Elevated Troponin, CP History of Present Illness History Source: Patient HPI Mrs. Live Atkins is an 79 yo female with known history of hypertension, diabetes mellitus type 2, peripheral neuropathy, restless leg syndrome, hyperlipidemia, early dementia presents with a chief complaint of chest pain. Patient reports onset last night of midsternal sharp chest pain radiating to her back with associated generalized weakness. Patient denies headaches, dizziness, nausea, vomiting, abdominal pain, dysuria, hematuria. Patient with troponin levels of 24, 41, 52, SBP 200's. Patient reports she is compliant with all of her medications. Patient admitted for further monitoring, evaluation. Home Meds Active Scripts Clonidine Hydrochloride (Clonidine Hcl) 0.1 Mg Tab, 0.1 MG PO TID PRN, #60 TAB Prov:TIN ENGLAND MD 01/01/25 Chlorthalidone (Chlorthalidone) 25 Mg Tab, 12.5 MG PO DAILY@BREAKFAST for 60 Days, #30 TAB Prov:TIN ENGLAND MD 01/01/25 Losartan Potassium (Losartan Potassium) 25 Mg Tab, 75 MG PO DAILY for 60 Days, #180 TAB Prov:TIN ENGLAND MD 12/28/24 Aspirin (Aspirin Low Dose) 81 Mg Tab, 81 MG PO DAILY, #60 TAB Prov:TIN ENGLAND MD 12/28/24 Senna (Senokot Extra Strength) 17.2 Mg Tab, 17.2 MG PO QPM, #30 TAB Prov:MAX LAWRENCE MD 09/01/24 Reported Medications Memantine Hydrochloride (Memantine HCl) 10 Mg Tab, 10 MG PO BID for memory, TAB 12/20/23 Gabapentin (Gabapentin) 300 Mg Cap, 300 MG PO QAM, MG 12/20/23 Donepezil Hydrochloride (DONEPEZIL HCL) 5 Mg Tab, 5 MG PO DAILY for dementia, MG 12/20/23 Acetaminophen (Tylenol Extra Strength) 500 Mg Tab, 500 MG PO PRN, TAB 12/20/23 Sucralfate (Sucralfate) 1 Gm Tab, 1 GM PO BIDP PRN for gerd, GM 12/20/23 Famotidine (Famotidine) 20 Mg Tab, 20 MG PO BID, MG 12/20/23 Ropinirole Hydrochloride (Ropinirole Hcl) 0.5 Mg Tab, 0.5 MG PO HS, TAB 12/20/23 Coenzyme Q10 (Coq10) Unknown Strength Cap, PO, CAP 01/05/23 Fenofibrate (Fenofibrate) 160 Mg Tab, 160 MG PO DAILY, TAB 01/05/23 Cholecalciferol (D3 2000) 2,000 Unit Tab, 5000 UNIT PO, TAB 07/12/22 Multiple Vitamin (Multivitamins) Tab, 1 TAB PO DAILY, #90 TAB 3 Refills 07/12/22 Amitriptyline HCl (Amitriptyline Hydrochlori) 50 Mg Tab, 2 TAB PO HS 03/22/22 Atorvastatin Calcium (ATORVASTATIN CALCIUM) 40 Mg Tab, 1 TAB PO HS 03/22/22 Discontinued Reported Medications Losartan Potassium (Losartan Potassium) 25 Mg Tab, 2 TAB PO DAILY 03/22/22 Past Medical History Cardiac: HTN, Hyperlipidemia Pulmonary: No pertinent Hx Central Nervous System: Dementia GI: No pertinent Hx Hemotology/Oncology: No pertinent Hx Hepatobiliary: No pertinent Hx Psychiatric: No pertinent Hx Musculoskeletal: No pertinent Hx Rheumotologic: No pertinent Hx Infectious Disease: No peritnent Hx ENT: No pertinent Hx Renal/: No pertinent Hx Endocrine: NIDDM Dermatology: No pertinent Hx Others restless leg syndrome Patient Family History: FH: emphysema G8 FATHER FH: lung cancer G8 FATHER FH: multiple myeloma G8 MOTHER, , Age: 92 Smoker: No Hx (Negative) Alocohol: None Drugs: None Lives with: With family Domestic Violence: Neg Review of Systems Constitutional: Weakness Ears, Nose, & Throat: No symptom reported Eyes: No symptom reported Pulmonary/Respiratory: No symptom reported Cardiovascular: Chest Pain Gastrointestinal: No symptom reported Genitourinary: No symptom reported Musculoskeletal: No symptom reported Skin: No symptom reported Psychiatric: No symptom reported Endocrine: No symptom reported Hemotologic/Lymphatic: No symptom reported H&P Exam Vital Signs Vital Signs Date Time Temp Pulse Resp B/P (MAP) Pulse Ox O2 Delivery O2 Flow Rate FiO2 12/31/24 04:17 98.0 68 18 200/82 (121) 96 98.0 12/30/24 23:59 Room Air* 0 21 General Appeara: Well developed, Well nourished, Normal Appearance Head Exam: Normal inspection Neck Exam: Normal inspection, Non-tender, Normal alignment Eye Exam: bilateral eye Normal inspection, bilateral eye PERRL, bilateral eye EOMI Ear Exam: bilateral ear Auricle normal Nasal Exam: Normal inspection Mouth: Normal Inspection Pulmonary/Respiratory: Normal inspection, Normal breath sounds, Chest non- tender, Lungs clear Cardiovascular/Chest: Normal inspection, Regular rate, Normal Rhythm Peripheral Pulses: 2+ dorsalis pedis (R), 2+ dorsalis pedis (L), 2+ Radial (R), 2+ Radial (L) Abdominal Exam: Normal bowel sounds, Soft, No tenderness 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 Exam: Normal hearing, Normal speech, PERRL Neuro/Mental St: Alert, Oriented Appearance: Appropriate appearance, Appropriate insight Eye contact/ Speech: Cooperative, Good eye contact, Normal speech Thoughts/Psych: Normal thought pattern Skin Exam: Normal inspection, Normal color, Warm/dry SEPSIS Sepsis Screen Date sepsis recognized/suspect: Dec 30, 2024 Time Sepsis recognized/suspect: 2346 Recent Procedure: No On Antibiotic Therapy: No Respiratory Rate >20: No Heart Rate >90: No Temp<36 C (96.8 F) or >38.3 C: No SBP <90 or MAP <65 mmHG: No New Acute Mental Status Change: No Is the patient on CPAP, BIPAP,: No Physician Orders Electrocardigram (12/30/24 23:43) Chest Xray 1 View (12/30/24 23:43) Vital Signs Q1HR (12/30/24 23:43) Saline Lock (12/30/24 23:43) Vamper (12/30/24 ) Troponin-I Hs (12/31/24 02:43) Hydralazine Injection (Apresoline Inject (12/31/24 04:30) Ondansetron Hcl (Zofran) (12/31/24 04:30) Famotidine Tablet (Pepcid Tablet) (12/31/24 10:00) Acetaminophen Tablet (Tylenol Tablet) (12/31/24 04:30) Aspirin Tablet (12/31/24 10:00) Atorvastatin (Lipitor) (12/31/24 22:00) Donepezil Tablet (Aricept Tablet) (12/31/24 10:00) Gabapentin Capsule (Neurontin Capsule) (12/31/24 07:00) Sucralfate Tab (Carafate Tab) (12/31/24 04:30) (Nf) Fenofibrate (12/31/24 10:00) (Nf) Memantine Hydrochloride (Memantine (12/31/24 10:00) (Nf) Ropinirole Hydrochloride (Ropinirol (12/31/24 22:00) (Nf) Senna (Senokot Extra Strength) (12/31/24 18:00) (Nf) Amitriptyline Hcl (Amitriptyline Hy (12/31/24 22:00) Admit (12/31/24 04:31) Troponin-I Hs (12/31/24 06:00) Troponin-I Hs (12/31/24 12:00) Troponin-I Hs (12/31/24 18:00) * Cardiology Consult (12/31/24 04:31) Basic Metabolic Panel (01/01/25 05:00) Basic Metabolic Panel (01/02/25 05:00) Cardiac Diet-2gna,Lofat,Lochol (12/31/24 Breakfast) Nitroglycerin Sublingual (Ntrostat Subli (12/31/24 04:45) Morphine Sulfate Injection (12/31/24 04:45) Stat Ekg For Chest Pain (12/31/24 04:31) Notify Md Of Changes From Base (12/31/24 04:31) Licensed Prosthetist/Orthotist For 24 Hours (12/31/24 04:31) Emergency Dysrhythmia Protocol (12/31/24 04:31) Rhythm Strips Once Every Shift (12/31/24 04:31) Oxygen By Nasal Cannula (12/31/24 04:31) Urinalysis (12/31/24 04:31) Enoxaparin Sodium (Lovenox) (12/31/24 04:45) Losartan Tablet (Cozaar Tablet) (12/31/24 04:45) Losartan Tablet (Cozaar Tablet) (01/01/25 10:00) Vital Signs Date Time Temp Pulse Resp B/P (MAP) Pulse Ox O2 Delivery O2 Flow Rate FiO2 12/31/24 04:17 98.0 68 18 200/82 (121) 96 98.0 12/31/24 03:30 70 15 180/78 (112) 94 12/31/24 01:51 73 181/75 12/31/24 00:58 72 16 181/75 (110) 93 12/31/24 00:51 72 210/86 12/30/24 23:59 95 Room Air* 0 21 12/30/24 23:58 98.2 71 12 205/90 (128) 93 98.2 12/30/24 23:45 68 12/30/24 23:44 98.4 71 16 161/81 95 98.4 Laboratory Tests Test 12/31/24 00:13 White Blood Count 5.7 10^3/uL (4.4-10.8) Medications Medications Dose Ordered Sig/Sam Route Start Time Stop Time Status Last Admin Dose Admin Acetaminophen 1,000 mg ONCE ONCE PO 12/31/24 01:30 12/31/24 01:31 DC 12/31/24 01:39 1,000 MG Labetalol HCl 5 mg ONCE ONCE IV 12/31/24 00:45 12/31/24 00:46 DC 12/31/24 00:51 5 MG Labs/Xrays Labs Test 12/31/24 02:29 12/31/24 00:13 Range/Units Troponin I High Sensitivity 41 *H </=34 ng/L White Blood Count 5.7 4.4-10.8 10^3/uL Red Blood Count 4.25 4.0-5.20 10^6/uL Hemoglobin 13.4 12.2-16.2 g/dL Hematocrit 38.8 36.0-46.0 % Mean Corpuscular Volume 91.4 80.0-100.0 fL Mean Corpuscular Hemoglobin 31.5 28.0-32.0 pg Mean Corpuscular Hemoglobin Concent 34.5 32.0-36.0 g/dL Red Cell Distribution Width 13.7 11.8-14.3 % Platelet Count 211 140-450 10^3/uL Mean Platelet Volume 7.6 6.9-10.8 fL Neutrophils (%) (Auto) 55.4 37.0-80.0 % Lymphocytes (%) (Auto) 32.8 10.0-50.0 % Monocytes (%) (Auto) 10.0 0.0-12.0 % Eosinophils (%) (Auto) 0.8 0.0-7.0 % Basophils (%) (Auto) 1.0 0.0-2.0 % Neutrophils # (Auto) 3.1 1.6-8.6 10 ^3/uL Lymphocytes # (Auto) 1.9 0.4-5.4 10 ^3/uL Monocytes # (Auto) 0.6 0-1.3 10 ^3/uL Eosinophils # (Auto) 0 0-0.8 10 ^3/uL Basophils # (Auto) 0.1 0-0.2 10 ^3/uL Nucleated Red Blood Cells 0.1 % Sodium Level 135 L 136-145 mmol/L Potassium Level 3.7 3.5-5.1 mmol/L Chloride Level 98 98-107 mmol/L Carbon Dioxide Level 27 20-31 mmol/L Anion Gap 10 5-15 Blood Urea Nitrogen 11 9-23 mg/dL Creatinine 0.62 0.550-1.02 mg/dL Glomerular Filtration Rate Calc 89 >90 mL/min BUN/Creatinine Ratio 17.7 10.0-20.0 Serum Glucose 90 74-106 mg/dL Calcium Level 9.8 8.7-10.4 mg/dL B-Type Natriuretic Peptide 43.49 0-100 pg/mL Assessment/Plan Problem List: (1) Hypertensive urgency (2) Chest pain (3) Elevated troponin Plan This is an 79 yo female with known history of hypertension, diabetes mellitus type 2, peripheral neuropathy, restless leg syndrome, hyperlipidemia, early dementia presents to the hospital with chest pain. Patient was recently seen /admitted here for elevated blood pressure , elevated troponin levels. Patient found to have 1. Hypertensive urgency 2. Elevated troponin suspect NSTEMI type 2 secondary to uncontrolled hypertension 3. Diabetes mellitus type 2 4. Dyslipidemia and hypertriglyceridemia 5. Peripheral neuropathy 6. Restless leg syndrome 7. Early cognitive decline Plan admit telemetry Cardiology consultation, serial troponin levels, continue aspirin, statin Antihypertensive for optimal blood pressure management patient 2D echo on 12/29 with EF 65% Discussed all above with patient who verbalizes agreement and understanding of care plan. All questions were answered. Discussed with supervising MD. Plan discussed with: Patient, Other Code Visit Code Visit Total Time (mins): 45 JODY IRBY Dec 31, 2024 04:47 TIN ENGLAND MD Jan 01, 2025 18:10
[2024-12-31] MEDS: MORPHINE SULFATE INJ 2 MG/ml SYRG IV PRN (04:49)
[2024-12-31] MEDS: LOSARTAN POTASSIUM 25 MG TAB PO ONE (04:50)
[2024-12-31] MEDS: ENOXAPARIN SOD 100 MG/1 ML SYRINGE SC ONE (04:59)
[2024-12-31] MEDS: MORPHINE SULFATE INJ 2 MG/ml SYRG ONE (05:00)
[2024-12-31 05:10] LABS: Urine Amorphous Crystal FEW /hpf (None Seen); Urine Protein, UAD Negative (Negative)
[2024-12-31] MEDS: GABAPENTIN 300 MG CAP PO SCH (06:40)
[2024-12-31] MEDS: HYDROcodone-ACET 5/325MG TAB PO PRN (06:41)
[2024-12-31 07:01] VITALS: PULSE 64; RESP 17; O2SAT 94
--- NOTE | 2024-12-31 08:21 | ECG ---
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
[2024-12-31] MEDS: FAMOTIDINE 20 MG TAB PO SCH (10:13)
[2024-12-31] MEDS: DONEPEZIL HYDROCHLORIDE 5 MG TAB PO SCH (10:13)
[2024-12-31] MEDS: MEMANTINE HCL 5 MG TAB PO SCH (10:13)
[2024-12-31] MEDS: FAMOTIDINE 20 MG TAB ONE (10:14)
--- NOTE | 2024-12-31 13:38 | DVHCONRES ---
REA JONES RESIDENT 12/31/24 1338: Date Seen: Dec 31, 2024 Resident Creating Document: REA JONES RESIDENT Referring Physician JODY IRBY Reason for Consultation HtN urgency, elevated troponin History of Present Illness 79-year-old female with history of hypertension, type 2 diabetes mellitus, hyperlipidemia, peripheral neuropathy, restless leg syndrome, and prior hysterectomy/thyroidectomy/cholecystectomy with recurrent hospatilaztions due to HTN emergency.?Presented with mid-sternal chest pain radiating to the back, associated with generalized weakness. No nausea, vomiting, abdominal pain, syncope, or palpitations reported.?Initial SBP >200 mmHg ? diagnosed with hypertensive emergency. Chest pain has now resolved. Troponin trend: 24 ? 41 ? 52 ? 48 ? 29 ? 24 ng/L (mild elevation, trending down, no significant dynamic ischemic pattern).?She underwent left heart ca theterization on 12/26/23: no intervention needed, managed medically.?Echo 12/29/24: LVEF 65%, concentric LV hypertrophy, aortic root enlargement, normal valves.?CXR: no acute cardiopulmonary process.?EKG: sinus rhythm, rate 68, nonspecific intraventricular conduction delay, QTc 450.?Currently SBP improved to 149/68 on IV hydralazine PRN, transitioning to oral regimen. O? sat 90% on 2L NC. Brief Gist of Todays Progress: * Chest pain has resolved. * Hypertensive emergency improved; BP now <150 systolic. * Troponins trending down. * Stable renal function and electrolytes. * Transitioning to Losartan 25 mg BID + Chlorthalidone 12.5 mg daily. * PRN agent for home BP control needed. Past Medical History * Hypertension * Type 2 Diabetes Mellitus * Hyperlipidemia * Peripheral neuropathy * Restless leg syndrome * Early dementia Past Surgical History * Hysterectomy * Partial thyroidectomy * Cholecystectomy Family History: FH: emphysema G8 FATHER FH: lung cancer G8 FATHER FH: multiple myeloma G8 MOTHER, , Age: 92 Social History * Former smoker, quit ~20 years ago * No alcohol or illicit drug use reported Allergies: Coded Allergies: NO KNOWN ALLERGIES (Unverified , 03/21/22) Home Meds Active Scripts Losartan Potassium (Losartan Potassium) 25 Mg Tab, 75 MG PO DAILY for 60 Days, #180 TAB Prov:TIN ENGLAND MD 12/28/24 Aspirin (Aspirin Low Dose) 81 Mg Tab, 81 MG PO DAILY, #60 TAB Prov:TIN ENGLAND MD 12/28/24 Senna (Senokot Extra Strength) 17.2 Mg Tab, 17.2 MG PO QPM, #30 TAB Prov:MAX LAWRENCE MD 09/01/24 Reported Medications Memantine Hydrochloride (Memantine HCl) 10 Mg Tab, 10 MG PO BID for memory, TAB 12/20/23 Gabapentin (Gabapentin) 300 Mg Cap, 300 MG PO QAM, MG 12/20/23 Donepezil Hydrochloride (DONEPEZIL HCL) 5 Mg Tab, 5 MG PO DAILY for dementia, MG 12/20/23 Acetaminophen (Tylenol Extra Strength) 500 Mg Tab, 500 MG PO PRN, TAB 12/20/23 Sucralfate (Sucralfate) 1 Gm Tab, 1 GM PO BIDP PRN for gerd, GM 12/20/23 Famotidine (Famotidine) 20 Mg Tab, 20 MG PO BID, MG 12/20/23 Ropinirole Hydrochloride (Ropinirole Hcl) 0.5 Mg Tab, 0.5 MG PO HS, TAB 12/20/23 Coenzyme Q10 (Coq10) Unknown Strength Cap, PO, CAP 01/05/23 Fenofibrate (Fenofibrate) 160 Mg Tab, 160 MG PO DAILY, TAB 01/05/23 Cholecalciferol (D3 2000) 2,000 Unit Tab, 5000 UNIT PO, TAB 07/12/22 Multiple Vitamin (Multivitamins) Tab, 1 TAB PO DAILY, #90 TAB 3 Refills 07/12/22 Amitriptyline HCl (Amitriptyline Hydrochlori) 50 Mg Tab, 2 TAB PO HS 03/22/22 Atorvastatin Calcium (ATORVASTATIN CALCIUM) 40 Mg Tab, 1 TAB PO HS 03/22/22 Discontinued Reported Medications Losartan Potassium (Losartan Potassium) 25 Mg Tab, 2 TAB PO DAILY 03/22/22 Current Medications Current Medications Medications (Trade) Dose Ordered Sig/Sam Route PRN Reason Start Time Stop Time Status Last Admin Losartan Potassium (Cozaar Tablet) 75 mg DAILY PO 01/01/25 10:00 Hydralazine HCl (Apresoline Injection) 10 mg Q6HPRN PRN IV SBP>160 12/31/24 04:30 Ondansetron HCl (Zofran) 4 mg Q6HPRN PRN IV NAUSEA / VOMITING 12/31/24 04:30 Famotidine (Pepcid Tablet) 20 mg BID PO 12/31/24 10:00 12/31/24 10:13 Acetaminophen (Tylenol Tablet) 650 mg Q6HPRN PRN PO PAIN SCALE 1-3 OR TEMP>100.4 12/31/24 04:30 Aspirin 81 mg DAILY PO 12/31/24 10:00 12/31/24 10:13 Atorvastatin Calcium (Lipitor) 40 mg HS PO 12/31/24 22:00 Donepezil HCl (Aricept Tablet) 5 mg DAILY PO 12/31/24 10:00 12/31/24 10:13 Gabapentin (Neurontin Capsule) 300 mg QAM PO 12/31/24 07:00 12/31/24 06:40 Sucralfate (Carafate Tab) 1 gm BIDP PRN PO gerd 12/31/24 04:30 Patient Own Medication 160 mg HS PO 01/01/25 22:00 Memantine (Namenda Tablet) 10 mg BID PO 12/31/24 10:00 12/31/24 10:13 Patient Own Medication 0.5 mg HS PO 12/31/24 22:00 Sennosides (Senokot Tablet) 17.2 mg QPM PO 12/31/24 18:00 Amitriptyline HCl (Elavil Tablet) 100 mg HS PO 12/31/24 22:00 Nitroglycerin (Ntrostat Sublingual) 0.4 mg Q5MINP PRN SL FOR CHEST PAIN 12/31/24 04:45 Morphine Sulfate 2 mg Q30M PRN IV FOR CHEST PAIN 12/31/24 04:45 12/31/24 04:49 Acetaminophen/ Hydrocodone Bitart ([place] 5/325MG Tab) 1 tab Q6HPRN PRN PO MODERATE PAIN (4-6 PAIN SCALE) 12/31/24 06:45 12/31/24 06:41 Review of Systems * Constitutional: No fevers, chills, or weight loss. * Cardiac: Chest pain resolved; denies palpitations, syncope. * Pulmonary: No orthopnea, no PND, no cough. * Neuro: No new focal deficits, no dizziness at present. * GI/: No abdominal pain, dysuria, or hematuria. Vital Signs Vital Signs Date Time Temp Pulse Resp B/P (MAP) Pulse Ox O2 Delivery O2 Flow Rate FiO2 12/31/24 12:00 64 16 128/46 (73) 100 12/31/24 08:13 Nasal Cannula* 2 28 12/31/24 07:01 97.7 97.7 Physical Exam * General: Elderly female, no acute distress * CV: RRR, normal S1/S2, no murmurs/gallops/rubs * Lungs: Clear to auscultation, no wheezes/rales * Extremities: No edema * Neuro: AOx2 (baseline dementia), no focal deficits Labs/Diagnostic Data Labs Test 12/31/24 12:05 12/31/24 03:55 12/31/24 00:13 Range/Units Troponin I High Sensitivity 29 </=34 ng/L Urine Color Light-yellow Yellow Urine Clarity Clear Clear Urine pH 7.0 5.0-9.0 Urine Specific [place] 1.011 1.001-1.035 Urine Protein Negative Negative Urine Ketones Negative Negative Urine Blood Negative Negative /uL Urine Nitrite Negative Negative Urine Bilirubin Negative Negative Urine Urobilinogen 2 H Negative mg/dL Urine Leukocyte Esterase Negative Negative /uL Urine RBC None seen 0 - 4 /hpf Urine Microscopic WBC < 1 0-5 /HPF Urine Squamous Epithelial Cells None seen <5 /hpf Urine Amorphous Crystals Few None Seen /hpf Urine Bacteria None seen None Seen /hpf Urine Glucose Normal Normal mg/dL White Blood Count 5.7 4.4-10.8 10^3/uL Red Blood Count 4.25 4.0-5.20 10^6/uL Hemoglobin 13.4 12.2-16.2 g/dL Hematocrit 38.8 36.0-46.0 % Mean Corpuscular Volume 91.4 80.0-100.0 fL Mean Corpuscular Hemoglobin 31.5 28.0-32.0 pg Mean Corpuscular Hemoglobin Concent 34.5 32.0-36.0 g/dL Red Cell Distribution Width 13.7 11.8-14.3 % Platelet Count 211 140-450 10^3/uL Mean Platelet Volume 7.6 6.9-10.8 fL Neutrophils (%) (Auto) 55.4 37.0-80.0 % Lymphocytes (%) (Auto) 32.8 10.0-50.0 % Monocytes (%) (Auto) 10.0 0.0-12.0 % Eosinophils (%) (Auto) 0.8 0.0-7.0 % Basophils (%) (Auto) 1.0 0.0-2.0 % Neutrophils # (Auto) 3.1 1.6-8.6 10 ^3/uL Lymphocytes # (Auto) 1.9 0.4-5.4 10 ^3/uL Monocytes # (Auto) 0.6 0-1.3 10 ^3/uL Eosinophils # (Auto) 0 0-0.8 10 ^3/uL Basophils # (Auto) 0.1 0-0.2 10 ^3/uL Nucleated Red Blood Cells 0.1 % Sodium Level 135 L 136-145 mmol/L Potassium Level 3.7 3.5-5.1 mmol/L Chloride Level 98 98-107 mmol/L Carbon Dioxide Level 27 20-31 mmol/L Anion Gap 10 5-15 Blood Urea Nitrogen 11 9-23 mg/dL Creatinine 0.62 0.550-1.02 mg/dL Glomerular Filtration Rate Calc 89 >90 mL/min BUN/Creatinine Ratio 17.7 10.0-20.0 Serum Glucose 90 74-106 mg/dL Calcium Level 9.8 8.7-10.4 mg/dL B-Type Natriuretic Peptide 43.49 0-100 pg/mL Assessment 1. Hypertensive emergency resolved with IV hydralazine, now transitioning to oral regimen. 2. Chest pain, non-cardiac / hypertensive urgency-related ACS ruled out (negative cath, echo normal, down-trending troponins). 3. LV hypertrophy with preserved EF consistent with long-standing hypertension. 4. Aortic root enlargement stable, requires surveillance. 5. Hyperlipidemia on atorvastatin and fenofibrate. 6. Type 2 diabetes mellitus stable, not in acute decompensation. Plan/Recommendation [facility]-[place] Treatment Plan Cardiovascular * Transition to Losartan 25 mg BID (ARB for BP control and LVH regression). * Start Chlorthalidone 12.5 mg daily (thiazide diuretic for additional BP control). * PRN home BP medication: Clonidine 0.1 mg PO q8h PRN for SBP >180 mmHg (avoid frequent use; instruct careful home BP monitoring). Hydralazine PO can also be considered, but clonidine is more practical as PRN. * Continue ASA 81 mg daily for CAD prevention. * Continue Atorvastatin 40 mg daily (monitor LFTs). * Strict BP monitoring at home, log values. Thank you for the consult we are signing off on this patient. Case discussed in detail with Dr. Lopez, including the clinical presentation, diagnostic workup, and comprehensive management plan. The patient was present for the discussion and demonstrated understanding of his condition and the proposed plan. Plan discussed with: Patient Visit Coding Cardiology RES Date of Service: Dec 31, 2024 Billing Provider: SAÚL LOPEZ MD Cardiology Common Codes: [id number] INP/OBS CARE (High) SAÚL LOPEZ MD 12/31/24 1409: Family History: FH: emphysema G8 FATHER FH: lung cancer G8 FATHER FH: multiple myeloma G8 MOTHER, , Age: 92 Allergies: Coded Allergies: NO KNOWN ALLERGIES (Unverified , 03/21/22) Home Meds Active Scripts Losartan Potassium (Losartan Potassium) 25 Mg Tab, 75 MG PO DAILY for 60 Days, #180 TAB Prov:TIN ENGLAND MD 12/28/24 Aspirin (Aspirin Low Dose) 81 Mg Tab, 81 MG PO DAILY, #60 TAB Prov:TIN ENGLAND MD 12/28/24 Senna (Senokot Extra Strength) 17.2 Mg Tab, 17.2 MG PO QPM, #30 TAB Prov:MAX LAWRENCE MD 09/01/24 Reported Medications Memantine Hydrochloride (Memantine HCl) 10 Mg Tab, 10 MG PO BID for memory, TAB 12/20/23 Gabapentin (Gabapentin) 300 Mg Cap, 300 MG PO QAM, MG 12/20/23 Donepezil Hydrochloride (DONEPEZIL HCL) 5 Mg Tab, 5 MG PO DAILY for dementia, MG 12/20/23 Acetaminophen (Tylenol Extra Strength) 500 Mg Tab, 500 MG PO PRN, TAB 12/20/23 Sucralfate (Sucralfate) 1 Gm Tab, 1 GM PO BIDP PRN for gerd, GM 12/20/23 Famotidine (Famotidine) 20 Mg Tab, 20 MG PO BID, MG 12/20/23 Ropinirole Hydrochloride (Ropinirole Hcl) 0.5 Mg Tab, 0.5 MG PO HS, TAB 12/20/23 Coenzyme Q10 (Coq10) Unknown Strength Cap, PO, CAP 9/20/23 Fenofibrate (Fenofibrate) 160 Mg Tab, 160 MG PO DAILY, TAB 01/05/23 Cholecalciferol (D3 2000) 2,000 Unit Tab, 5000 UNIT PO, TAB 07/12/22 Multiple Vitamin (Multivitamins) Tab, 1 TAB PO DAILY, #90 TAB 3 Refills 07/12/22 Amitriptyline HCl (Amitriptyline Hydrochlori) 50 Mg Tab, 2 TAB PO HS 03/22/22 Atorvastatin Calcium (ATORVASTATIN CALCIUM) 40 Mg Tab, 1 TAB PO HS 03/22/22 Discontinued Reported Medications Losartan Potassium (Losartan Potassium) 25 Mg Tab, 2 TAB PO DAILY 03/22/22 Plan/Recommendation pt admitted again for htn increase losartan to 25 bid add chlorthalidone daily better bp control negative lhc with 2023 Plan discussed with: Patient REA JONES RESIDENT Dec 31, 2024 13:38 SAÚL LOPEZ MD Dec 31, 2024 14:09
[2024-12-31] MEDS: DONEPEZIL HYDROCHLORIDE 5 MG TAB ONE (16:55)
[2024-12-31] MEDS: MEMANTINE HCL 5 MG TAB ONE (16:55)
[2024-12-31] MEDS: HYDROcodone-ACET 5/325MG TAB ONE (17:02)
[2024-12-31] MEDS: BACLOFEN 10 MG TAB PO ONE (17:06)
[2024-12-31] MEDS: SENNA 8.6 MG TAB PO SCH (18:00)
[2024-12-31 18:42] VITALS: BP 164/71; PULSE 64; TEMP 98.4; O2SAT 94
[2024-12-31 21:00] VITALS: BP 135/57; PULSE 65; RESP 14; TEMP 97.9; O2SAT 94
[2024-12-31] MEDS: ATORVASTATIN 20 MG TAB PO SCH (21:57)
[2024-12-31] MEDS: BACLOFEN 10 MG TAB PO SCH (21:57)
[2024-12-31] MEDS: ROPINIROLE HYDROCHLORIDE 0.5 MG PO SCH (22:00)
[2024-12-31] MEDS: AMITRIPTYLINE HCL 25 MG TAB PO SCH (22:00)
[2024-12-31 23:43] VITALS: BP 148/81; PULSE 66; RESP 16; TEMP 97.3; O2SAT 94
[2025-01-01] VITALS (7 sets, daily range): BP systolic 133–166; BP diastolic 65–82; PULSE 64–74; RESP 15–18; TEMP 97.8–98.6; O2SAT 93–97
[2025-01-01] MEDS: ACETAMINOPHEN 325 MG TAB PO PRN (01:52)
[2025-01-01] MEDS: hydrALAZINE HCL 20 MG/ML VL IV PRN (04:25)
[2025-01-01 08:36] LABS: Anion Gap 9 (5-15); Carbon Dioxide 26 mmol/L (20-31); Potassium 4.2 mmol/L (3.5-5.1)
[2025-01-01 08:37] LABS: Calcium 8.8 mg/dL (8.7-10.4)
[2025-01-01 08:42] LABS: BUN/Creatinine Ratio 17.4 (10.0-20.0); Blood Urea Nitrogen 12 mg/dL (9-23); Chloride 97 mmol/L (98-107); Glucose 147 mg/dL (74-106); Sodium 132 mmol/L (136-145)
[2025-01-01 08:43] LABS: Magnesium 1.6 mg/dL (1.6-2.6)
[2025-01-01] MEDS: LOSARTAN POTASSIUM 25 MG TAB PO SCH (11:05)
[2025-01-01] MEDS: CHLORTHALIDONE 25 MG TAB PO SCH (11:06)
[2025-01-01] MEDS ORDERED: CHLO25TA2 PO (15:02)
--- NOTE | 2025-01-01 15:06 | DVHDS2 ---
Discharge Summary Date of Admission Dec 31, 2024 at 04:31 Date of Discharge: Jan 01, 2025 Labs/Diagnostic Data: Laboratory Results Test 01/01/25 07:14 12/31/24 19:18 12/31/24 03:55 12/31/24 00:13 Sodium Level 132 mmol/L (136-145) Potassium Level 4.2 mmol/L (3.5-5.1) Chloride Level 97 mmol/L (98-107) Carbon Dioxide Level 26 mmol/L (20-31) Anion Gap 9 (5-15) Blood Urea Nitrogen 12 mg/dL (9-23) Creatinine 0.69 mg/dL (0.550-1.02) Glomerular Filtration Rate Calc 87 mL/min (>90) BUN/Creatinine Ratio 17.4 (10.0-20.0) Serum Glucose 147 mg/dL (74-106) Calcium Level 8.8 mg/dL (8.7-10.4) Magnesium Level 1.6 mg/dL (1.6-2.6) Troponin I High Sensitivity 16 ng/L (</=34) Urine Color Light-yellow (Yellow) Urine Clarity Clear (Clear) Urine pH 7.0 (5.0-9.0) Urine Specific [place] 1.011 (1.001-1.035) Urine Protein Negative (Negative) Urine Ketones Negative (Negative) Urine Blood Negative /uL (Negative) Urine Nitrite Negative (Negative) Urine Bilirubin Negative (Negative) Urine Urobilinogen 2 mg/dL (Negative) Urine Leukocyte Esterase Negative /uL (Negative) Urine RBC None seen /hpf (0 - 4) Urine Microscopic WBC < 1 /HPF (0-5) Urine Squamous Epithelial Cells None seen /hpf (<5) Urine Amorphous Crystals Few /hpf (None Seen) Urine Bacteria None seen /hpf (None Seen) Urine Glucose Normal mg/dL (Normal) White Blood Count 5.7 10^3/uL (4.4-10.8) Red Blood Count 4.25 10^6/uL (4.0-5.20) Hemoglobin 13.4 g/dL (12.2-16.2) Hematocrit 38.8 % (36.0-46.0) Mean Corpuscular Volume 91.4 fL (80.0-100.0) Mean Corpuscular Hemoglobin 31.5 pg (28.0-32.0) Mean Corpuscular Hemoglobin Concent 34.5 g/dL (32.0-36.0) Red Cell Distribution Width 13.7 % (11.8-14.3) Platelet Count 211 10^3/uL (140-450) Mean Platelet Volume 7.6 fL (6.9-10.8) Neutrophils (%) (Auto) 55.4 % (37.0-80.0) Lymphocytes (%) (Auto) 32.8 % (10.0-50.0) Monocytes (%) (Auto) 10.0 % (0.0-12.0) Eosinophils (%) (Auto) 0.8 % (0.0-7.0) Basophils (%) (Auto) 1.0 % (0.0-2.0) Neutrophils # (Auto) 3.1 10 ^3/uL (1.6-8.6) Lymphocytes # (Auto) 1.9 10 ^3/uL (0.4-5.4) Monocytes # (Auto) 0.6 10 ^3/uL (0-1.3) Eosinophils # (Auto) 0 10 ^3/uL (0-0.8) Basophils # (Auto) 0.1 10 ^3/uL (0-0.2) Nucleated Red Blood Cells 0.1 % B-Type Natriuretic Peptide 43.49 pg/mL (0-100) Other Laboratory Tests 01/01/25 07:14 12/31/24 00:13 Brief Hx & Hospital Course: This is an 79 yo female with known history of hypertension, diabetes mellitus type 2, peripheral neuropathy, restless leg syndrome, hyperlipidemia, early dementia presents to the hospital with chest pain. Patient was recently seen /admitted here for elevated blood pressure , elevated troponin levels. Patient found to have poorly controlled hypertension with the elevated troponin. Patient was started on blood pressure medication called, chlorthalidone has been added. Patient's hypertension is well controlled now patient is requesting to go home. Patient is being discharged under stable condition with a close follow up as an outpatient with the PCP and Cardiology if needed. Condition at Discharge: Stable Final Diagnosis/Problems List This is an 79 yo female with known history of hypertension, diabetes mellitus type 2, peripheral neuropathy, restless leg syndrome, hyperlipidemia, early dementia presents to the hospital with chest pain. Patient was recently seen /admitted here for elevated blood pressure , elevated troponin levels. Patient found to have 1. Hypertensive urgency 2. Elevated troponin suspect NSTEMI type 2 secondary to uncontrolled hypertension 3. Diabetes mellitus type 2 4. Dyslipidemia and hypertriglyceridemia 5. Peripheral neuropathy 6. Restless leg syndrome 7. Early cognitive decline Discharge Disposition: Home with Health Services SNF Discharge Will this Physician continue t: No Discharge Instruct/Medications Diet: Cardiac 2g Na,low cholest Activity: No Restrictions, As Tolerated Follow Up/Referral: Follow up with the PCP in one week Follow up with the Cardiology in one week. Medications: Chlorthalidone as prescribed, resume home doses of losartan. New Medications: Chlorthalidone (Chlorthalidone) 25 Mg Tab 12.5 MG PO DAILY@BREAKFAST for 60 Days, #30 TAB Continued Medications: Acetaminophen (Tylenol Extra Strength) 500 Mg Tab 500 MG PO PRN, TAB Amitriptyline HCl (Amitriptyline Hydrochlori) 50 Mg Tab 2 TAB PO HS Aspirin (Aspirin Low Dose) 81 Mg Tab 81 MG PO DAILY, #60 TAB Atorvastatin Calcium (Atorvastatin Calcium) 40 Mg Tab 1 TAB PO HS Cholecalciferol (D3 2000) 2,000 Unit Tab 5000 UNIT PO, TAB Coenzyme Q10 (Coq10) Unknown Strength Cap Unknown Dose PO, CAP Donepezil Hydrochloride (Donepezil Hcl) 5 Mg Tab 5 MG PO DAILY for dementia, MG Famotidine (Famotidine) 20 Mg Tab 20 MG PO BID, MG Fenofibrate (Fenofibrate) 160 Mg Tab 160 MG PO DAILY, TAB Gabapentin (Gabapentin) 300 Mg Cap 300 MG PO QAM, MG Losartan Potassium (Losartan Potassium) 25 Mg Tab 75 MG PO DAILY for 60 Days, #180 TAB Memantine Hydrochloride (Memantine HCl) 10 Mg Tab 10 MG PO BID for memory, TAB Multiple Vitamin (Multivitamins) Tab 1 TAB PO DAILY, #90 TAB 3 Refills Ropinirole Hydrochloride (Ropinirole Hcl) 0.5 Mg Tab 0.5 MG PO HS, TAB Senna (Senokot Extra Strength) 17.2 Mg Tab 17.2 MG PO QPM, #30 TAB Sucralfate (Sucralfate) 1 Gm Tab 1 GM PO BIDP PRN for gerd, GM Scheduled Acetaminophen (Tylenol Extra Strength), 500 MG PO PRN, (Reported) Amitriptyline HCl (Amitriptyline Hydrochlori), 2 TAB PO HS, (Reported) Aspirin (Aspirin Low Dose), 81 MG PO DAILY Atorvastatin Calcium (Atorvastatin Calcium), 1 TAB PO HS, (Reported) Chlorthalidone (Chlorthalidone), 12.5 MG PO DAILY@BREAKFAST Donepezil Hydrochloride (Donepezil Hcl), 5 MG PO DAILY, (Reported) Famotidine (Famotidine), 20 MG PO BID, (Reported) Fenofibrate (Fenofibrate), 160 MG PO DAILY, (Reported) Gabapentin (Gabapentin), 300 MG PO QAM, (Reported) Losartan Potassium (Losartan Potassium), 75 MG PO DAILY Memantine Hydrochloride (Memantine HCl), 10 MG PO BID, (Reported) Multiple Vitamin (Multivitamins), 1 TAB PO DAILY, (Reported) Ropinirole Hydrochloride (Ropinirole Hcl), 0.5 MG PO HS, (Reported) Senna (Senokot Extra Strength), 17.2 MG PO QPM Scheduled PRN Sucralfate (Sucralfate), 1 GM PO BIDP PRN for gerd, (Reported) Miscellaneous Medications Cholecalciferol (D3 2000), 5,000 UNIT PO, (Reported) Coenzyme Q10 (Coq10), Unknown Dose PO, (Reported) Discontinued Medications Losartan Potassium (Losartan Potassium), 2 TAB PO DAILY, (Reported) Discharge Statement: "Patient was advised to return to the ER or call 911 if any headaches, dizziness, shortness of breath, chest pain, abdominal pain, bleeding, fevers, or worsening of medical condition. Patient was counseled about treatment plan, medications, possible side effects, patientverbalized understanding. All questions were answered to the best of my ability. This discharge took greater then 30 minutes in planning, reviewing documentation, counseling the patient, and discussing with other team members." ASSESSMENT ASSESSMENT Assessment This is an 79 yo female with known history of hypertension, diabetes mellitus type 2, peripheral neuropathy, restless leg syndrome, hyperlipidemia, early dementia presents to the hospital with chest pain. Patient was recently seen /admitted here for elevated blood pressure , elevated troponin levels. Patient found to have 1. Hypertensive urgency 2. Elevated troponin suspect NSTEMI type 2 secondary to uncontrolled hypertension 3. Diabetes mellitus type 2 4. Dyslipidemia and hypertriglyceridemia 5. Peripheral neuropathy 6. Restless leg syndrome 7. Early cognitive decline Date of Service: Jan 01, 2025 Billing Provider: TIN ENGLAND MD Common Visit Codes: NOT BILLABLE TIN ENGLAND MD Jan 01, 2025 15:06
[2025-01-01] MEDS ORDERED: CLON0.1T PO (18:03)
[2025-01-01] MEDS ORDERED: Fenofibrate 160 MG TABLET PO SCH (22:00)
== END 2025-01-01 18:05 | disposition home health service (06) | DRG 282 ==
LOC: ER 23:38 → EDBD 23:38 → OVERFLOW 12-31 04:31 → TELE-EAST 12-31 23:15
PROVIDERS: ADMIT Nurse Practitioner Family; ATTEND Nurse Practitioner Family
DX: I16.1 Hypertensive emergency (principal); I21.A1 Myocardial infarction type 2; I10 Essential (primary) hypertension; F03.90 Unspecified dementia, unspecified severity, without behavioral disturbance, psychotic disturbance, mood disturbance, and anxiety; E78.1 Pure hyperglyceridemia; G25.81 Restless legs syndrome; E11.42 Type 2 diabetes mellitus with diabetic polyneuropathy; Z79.899 Other long term (current) drug therapy; Z90.49 Acquired absence of other specified parts of digestive tract; Z90.710 Acquired absence of both cervix and uterus; Z79.82 Long term (current) use of aspirin; Z82.5 Family history of asthma and other chronic lower respiratory diseases; Z80.7 Family history of other malignant neoplasms of lymphoid, hematopoietic and related tissues; Z80.1 Family history of malignant neoplasm of trachea, bronchus and lung; Z79.84 Long term (current) use of oral hypoglycemic drugs
CPT/HCPCS: 36415; 71045; 80048; 81001; 83735; 83880; 84484; 85025; 87081; 93005; G0378

== ENCOUNTER 2025-01-13 01:39 | Inpatient (IN) | payer OTHER ==
[~2025-01-13] VITALS: Ht 162.6 cm; Wt 53.3 kg
[~2025-01-13 01:39] MED LIST changes: +CHLO25TA2 PO; +CLON0.1T PO
--- NOTE | 2025-01-13 02:24 | DVH ---
CHEST RADIOGRAPH Indication: Chest pain Technique: Single frontal view of the chest was obtained COMPARISON: XY CHEST XRAY 1 VIEW on DOS: 12/31/24, XY CHEST XRAY 1 VIEW on DOS: 12/27/24, XY CHEST PORT ABLE on DOS: 07/30/24, XY CHEST TWO VIEWS ROUTINE on DOS: 07/12/22, CHEST PORTABLE on DOS: 03/21/22 FINDINGS: Lines and Tubes: None Lungs: Clear Pleura: No effusion. No pneumothorax. Cardiomediastinal contours: Unremarkable Bones: Unremarkable IMPRESSION: 1. No acute disease.
--- NOTE | 2025-01-13 02:25 | ED.PDOC ---
History of Present Illness HPI Comments Patient is a 79-year-old female who was brought in by EMS for complaints of generalized weakness as well as upper chest pressure for the past several hours. Patient additionally complains of uncontrolled hypertensive concerns. Patient states she has been in and out of the hospital over the past month for same complaints. Patient utilize medications as prescribed, but states her blood pressure continues to fluctuate. Patient denies any fever nausea or vomiting. Patient's blood pressure at arrival was 199/77. 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 Family History Family History: Reviewed,noncontributory to illness, No family hx of Cancer, No family hx of DM, No family hx of Heart marcelo, No family hx of HTN, No family hx ofKidney marcelo, No family hx of Liver marcelo, No family hx of Lung marcelo, No family hx of Stroke Social History Smoker: Non-Smoker Alcohol: Denies ETOH Use Drugs: Denies Drug Use Lives In: Home Constitutional: reports: fatigue, weakness; denies: chills, diaphoresis, fever, malaise, sweats, others EENTM: denies: blurred vision, double vision, ear bleeding, ear discharge, ear drainage, ear pain, ear ringing, eye pain, eye redness, hearing loss, mouth pain, mouth swelling, nasal discharge, nose bleeding, nose congestion, nose pain, photophobia, tearing, throat pain, throat swelling, voice changes, others Respiratory: denies: cough, hemoptysis, orthopnea, SOB at rest, shortness of breath, SOB with excertion, stridor, wheezing, others Cardiovascular: reports: chest pain; denies: dizzy spells, diaphoresis, Dyspnea on exertion, edema, irregular heart beat, left arm pain, lightheadedness, palpitations, PND, syncope, others Gastrointestinal: denies: abdomen distended, abdominal pain, blood streaked bowels, constipated, diarrhea, dysphagia, difficulty swallowing, hematemesis, melena, nausea, poor appetite, poor fluid intake, rectal bleeding, rectal pain, vomiting, others Genitourinary: denies: abnormal vagina bleeding, burning, dyspareunia, dysuria, flank pain, frequency, hematuria, incontinence, pain, , vagina discharge, urgency, others Neurological: denies: dizziness, fainting, headache, left sided numbness, left sided weakness, numbness, paresthesia, pre-existing deficit, right sided numbness, right sided weakness, seizure, speech problems, tingling, tremors, weakness, others Musculoskeletal: denies: back pain, gout, joint pain, joint swelling, muscle p ain, muscle stiffness, neck pain, others Integumetry: denies: bruises, change in color, change in hair/nails, dryness, laceration, lesions, lumps, rash, wounds, others Allergic/Immunocompromised: denies: Difficulty Healing, Frequent Infections, Hives, Itching, others Hematologic/Lymphatic: denies: anemia, blood clots, easy bleeding, easy bruising, swollen glands, others Endocrine: denies: excessive hunger, excessive sweating, excessive thirst, excessive urination, flushing, intolerance to cold, intolerance to heat, unexplained weight gain, unexplained weight loss, others Psychiatric: denies: anxiety, bipolar disorder, depression, hopeless, panic disorder, schizophrenia, sleepless, suicidal, others Physical Exam General Appearance: Moderate Distress ([id number] distress due to chest pressure concerns.), Normal HEENT: Normal ENT Inspection, Pharynx Normal, TMs Normal Neck: Full Range of Motion, Non-Tender, Normal, Normal Inspection Respiratory: Chest Non-Tender, Lungs Clear, No Accessory Muscle Use, No Respiratory Distress, Normal Breath Sounds, Other (Unremarkable auscultation bilateral lung jay.) Cardiovascular: No Edema, No JVD, No Murmur, No Gallop, Normal Peripheral Pulses, Regular Rate/Rhythm, Other (Unremarkable cardiac evaluation.) Breast Exam: Deferred Gastrointestinal: No Organomegaly, Non Tender, No Pulsatile Mass, Normal Bowel Sounds, Soft Genitalia: Deferred Pelvic: Deferred Rectal: Deferred Extremities: No calf tenderness, Normal capillary refill, No pedal edema Neurologic: Alert Cerebellar Function: NOT DONE Reflexes: NOT DONE Skin: Dry, Normal Color, Warm Lymphatic: No Adenopathy Was a procedure done? Was a procedure done?: No Differential Dx Considerations may include: Hypertensive urgency, acute coronary syndrome, generalized weakness, electrolyte abnormality, sepsis, UTI X-Ray, Labs, Meds, VS Vital Signs Date Time Temp Pulse Resp B/P (MAP) Pulse Ox O2 Delivery O2 Flow Rate FiO2 01/13/25 01:54 97.7 72 16 199/77 99 97.7 X-Ray, Labs, Meds, VS Comment The majority of testing was pending at time of this note. EKG revealed an atrial flutter with predominant 4-1 AV block. Nonspecific intraventricular conduction delay was noted. ST-elevation with the consideration of a possible inferior injury. Rate was 69, QT interval was 325. Patient will be admitted for atrial flutter and acute coronary syndrome concerns as well as hypertensive urgency issues. Time of 1ST Reevaluation: 02:24 Reevaluation 1ST: Improved Consultation: PCP, Cardiology Patient Education/Counseling: Diagnosis, Treatment Family Education/Counseling: Diagnosis, Treatment SEPSIS Sepsis Screen Date sepsis recognized/suspect: Jan 13, 2025 Time Sepsis recognized/suspect: 015 Recent Procedure: No On Antibiotic Therapy: No Respiratory Rate >20: No Heart Rate >90: No Temp<36 C (96.8 F) or >38.3 C: No SBP <90 or MAP <65 mmHG: No New Acute Mental Status Change: No Is the patient on CPAP, BIPAP,: No Physician Orders Heplock Iv (01/13/25 ) Complete Blood Count (01/13/25 01:46) Comprehensive Metabolic Panel (01/13/25 01:46) Lipase (01/13/25 01:46) Lactic Acid W/ Reflex Order (01/13/25 01:46) Troponin-I Hs (01/13/25 01:46) Troponin-I Hs (01/13/25 02:46) Troponin-I Hs (01/13/25 04:46) Electrocardigram (01/13/25 01:46) Continuous Ekg Monitoring 08,12,16,20,00,04 (01/13/25 01:46) Chest Portable (01/13/25 01:46) Vital Signs Date Time Temp Pulse Resp B/P (MAP) Pulse Ox O2 Delivery O2 Flow Rate FiO2 01/13/25 01:54 97.7 72 16 199/77 99 97.7 Departure 1 Departure Time of Disposition: 02:24 Impression: Primary Impression: Acute coronary syndrome Additional Impressions: Generalized weakness Atrial flutter Disposition: ADMITTED INPATIENT Condition: Fair Discharged With: Self Critical Care Note Critical Care Time?: No Stability Stability form required: No Heart Score Heart Score: Heart Score Response (Comments) Value History Slightly Suspicious 0 EKG Repolarization Disturb 1 Age >65 2 Risk Factors 1 or 2 risk factors 1 Troponin N/A 0 Total 4 AUGUSTINE ADAM PAC Jan 13, 2025 02:25
[2025-01-13 02:46] LABS: Albumin 4.0 g/dL (3.2-4.8); Alkaline Phosphatase 73 U/L (46-116); Anion Gap 9 (5-15); BUN/Creatinine Ratio 13.2 (10.0-20.0); Bilirubin, Total 0.5 mg/dL (0.2-1.0); Blood Urea Nitrogen 10 mg/dL (9-23); Calcium 10.2 mg/dL (8.7-10.4); Carbon Dioxide 28 mmol/L (20-31); Glucose 104 mg/dL (74-106); Potassium 4.0 mmol/L (3.5-5.1); Total Protein 6.3 g/dL (5.7-8.2)
[2025-01-13 02:52] LABS: Alanine Aminotransferase 43 U/L (7-40); Chloride 89 mmol/L (98-107); Lipase 53 U/L (12-53); Sodium 126 mmol/L (136-145)
[2025-01-13] MEDS: LOSARTAN POTASSIUM 25 MG TAB PO SCH (03:15)
--- NOTE | 2025-01-13 03:31 | DVHHPRES ---
History of Present Illness Resident Creating Document: MALDONADO VEGA History of Present Illness This is an 79-year-old female with past medical history of hypertension, type 2 diabetes, dyslipidemia, thyroid resected 20 years ago? Patient not sure, (possible tumor?), the patient presented to the ED with chief complaint of generalized weakness and headache. The patient states that has been feeling chest tightness associated with generalized weakness and headache for the past couple of days. Patient denies fever, chills, chest pain, shortness of breath, abdominal pain or any other associated symptoms. Patient also denies any history of asthma or COPD. Labs are still pending, we ordered CBC, CMP, urinalysis, TSH, free T4, Ekg. We will also test for influenza a/B and COVID 19 test. We will start the patient on IV fluids. We will admit the patient for further assessment and management. Home medications: Losartan, [id number] mg daily, atenolol, donepezil, gabapentin, duloxetine, ropinirole, baclofen, clonidine. Patient does not recall the dosage of the medications and has not the least here at this moment. Surgical history: Cholecystectomy, hysterectomy, appendectomy Social history: Denies alcohol intake, drug consumption or smoking. Cardiovascular: HTN, hyperipidemia Endocrine: Diabetes Past Surgical History: Appendectomy, Cholecystectomy, Hysterectomy Family History: None Smoke: No ALCOHOL: none Drugs: None Lives: with Family Domestic Violence: Neg Review of Systems Constitutional: Yes: Weakness, Malaise; No: Fever, Chills, Sweats, Other Eyes: No: Pain, Vision change, Conjunctivae inflammation, Eyelid inflammation, Other, Redness ENT: No: Ear pain, Ear discharge, Nose pain, Nose discharge, Nose congestion, Mouth pain, Mouth swelling, Throat pain, Throat swelling, Other Respiratory: No: Cough, Dry, Shortness of breath, SOB with excertion, Wheezing, Hemoptysis, Pleuritic Pain, Sputum, Wheezing, Other Cardiovascular: Other (Chest tightness); No: Chest Pain, Palpitations, Orthopnea, Paroxysmal Noc. Dyspnea, Edema, Lt Headedness Gastrointestinal: No: Nausea, Vomiting, Abdominal Pain, Diarrhea, Constipation, Melena, Hematochezia, Other Genitourinary: No Dysuria, No Frequency, No Incontinence, No Hematuria, No Retention, No Other Musculoskeletal: No: other, neck pain, shoulder pain, arm pain, back pain, hand pain, leg pain, foot pain Skin: No: Rash, Lesions, Jaundice, Bruising, Other Neurological: Weakness; No: Numbness, Incoordination, Change in speech, Confusion, Seizures, Other Allergies: Coded Allergies: NO KNOWN ALLERGIES (Unverified , 01/13/25) Medications Current Medications Medications Dose Ordered Sig/Sam Route Start Time Stop Time Status Last Admin Dose Admin Sodium Chloride 1,000 ml @ 60 mls/hr [id number] IV 01/13/25 03:15 UNV Acetaminophen 650 mg Q6HP PRN PO 01/13/25 03:15 UNV Enoxaparin Sodium 40 mg DAILY SC 01/13/25 10:00 UNV Exam Vital Signs Vital Signs Date Time Temp Pulse Resp B/P (MAP) Pulse Ox O2 Delivery O2 Flow Rate FiO2 01/13/25 02:33 163/68 01/13/25 02:23 98.4 72 13 97 98.4 General Appearance: Alert, Oriented X3, Cooperative, No acute distress HEENT: Atraumatic, PERRLA, EOMI, Mucous membr. moist/pink Respiratory: Clear to auscultation, Normal air movement Cardiovascular: Regular rate, Normal S1, Normal S2, No murmurs Abdominal: Normal bowel sounds, Soft, No tenderness, No hepatospenomegaly, No masses Extremities: No clubbing, No cyanosis, No edema, Normal pulses, No tenderness/swelling Skin: No rashes, No breakdown, No significant lesion Neuro: Normal gait, Normal speech, Strength at 5/5 X4 ext, Normal tone, Sensation intact, Cranial nerves 3-12 NL, Reflexes 2+ Psych/Mental Status: Mental status NL, Mood NL Labs/Xrays Labs Test 01/13/25 02:12 Range/Units Sodium Level 126 L 136-145 mmol/L Potassium Level 4.0 3.5-5.1 mmol/L Chloride Level 89 L 98-107 mmol/L Carbon Dioxide Level 28 20-31 mmol/L Anion Gap 9 5-15 Blood Urea Nitrogen 10 9-23 mg/dL Creatinine 0.76 0.550-1.02 mg/dL Glomerular Filtration Rate Calc 79 >90 mL/min BUN/Creatinine Ratio 13.2 10.0-20.0 Serum Glucose 104 74-106 mg/dL Lactic Acid Level 1.3 0.4-2.0 mmol/L Calcium Level 10.2 8.7-10.4 mg/dL Total Bilirubin 0.5 0.2-1.0 mg/dL Aspartate Amino Transferase (AST) 54 H 13-40 U/L Alanine Aminotransferase (ALT) 43 H 7-40 U/L Alkaline Phosphatase 73 46-116 U/L Troponin I High Sensitivity 33 </=34 ng/L Total Protein 6.3 5.7-8.2 g/dL Albumin 4.0 3.2-4.8 g/dL Lipase 53 12-53 U/L SEPSIS Sepsis Screen Date sepsis recognized/suspect: Jan 13, 2025 Time Sepsis recognized/suspect: 150 Recent Procedure: No On Antibiotic Therapy: No Respiratory Rate >20: No Heart Rate >90: No Temp<36 C (96.8 F) or >38.3 C: No SBP <90 or MAP <65 mmHG: No New Acute Mental Status Change: No Is the patient on CPAP, BIPAP,: No Physician Orders Heplock Iv (01/13/25 ) Complete Blood Count (01/13/25 01:46) Troponin-I Hs (01/13/25 02:46) Troponin-I Hs (01/13/25 04:46) Electrocardigram (01/13/25 01:46) Continuous Ekg Monitoring 08,12,16,20,00,04 (01/13/25 01:46) Chest Portable (01/13/25 01:46) Admit (01/13/25 03:01) Code Status (01/13/25 03:01) Vital Signs .PER UNIT PROTOCOL (01/13/25 03:01) Review Orders With Adm.Md (01/13/25 03:01) Encourage Activity As Tolerate (01/13/25 03:01) Regular Diet (01/13/25 Breakfast) Sodium Chloride 0.9% (01/13/25 03:15) Acetaminophen Tablet (Tylenol Tablet) (01/13/25 03:15) Notify Md Of Changes From Base (01/13/25 03:01) Advance Directive (01/13/25 03:01) Urinalysis (01/13/25 03:01) Lipid Panel (01/13/25 03:01) Urine Bacterial Culture (01/13/25 03:01) Patient Condition (01/13/25 03:01) Allergies (01/13/25 03:01) Drug Screen (01/13/25 03:01) Hemoglobin A1c (01/13/25 03:01) Enoxaparin Sodium (Lovenox) (01/13/25 10:00) Thyroid Stimulating Hormone (01/13/25 03:09) Free T4 (Free Thyroxine) (01/13/25 03:09) Ammonia (01/13/25 03:09) Electrocardigram (01/13/25 03:09) B-Type Natriuretic Peptide (01/13/25 03:09) Rapid Influenza A&B (01/13/25 03:09) Covid19 Antigen Emily (01/13/25 ) Vital Signs Date Time Temp Pulse Resp B/P (MAP) Pulse Ox O2 Delivery O2 Flow Rate FiO2 01/13/25 02:33 163/68 01/13/25 02:23 98.4 72 13 163/68 (99) 97 98.4 01/13/25 01:54 97.7 72 16 199/77 99 97.7 Laboratory Tests Test 01/13/25 02:12 Lactic Acid Level 1.3 mmol/L (0.4-2.0) White Blood Count Pending Medications Medications Dose Ordered Sig/Sam Route Start Time Stop Time Status Last Admin Dose Admin Clonidine HCl 0.2 mg ONCE ONCE PO 01/13/25 02:00 01/13/25 02:01 DC 01/13/25 02:33 0.2 MG Assessment/Plan Assessment/Plan Assessment/plan Hypertensive urgency Generalized weakness and headache likely due to metabolic/toxic encephalopathy Rule out UTI Primary hypertension Dyslipidemia Type 2 diabetes mellitus ? 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 Plan -clonidine 0.2 mg p.o. was given in the ED -start [id number] mg daily -start carvedilol 3.125 mg b.i.d. -consider increasing blood pressure medications if hypertension persists -ordered EKG -start atorvastatin 10 mg daily -measure ammonia levels -ordered influenza a/B and COVID-19 test -start NS 0.9% at 60 cc/hour -ordered TSH/free T4 Goals of care discussed with the patient at bedside, full code Plan discussed with Dr. Billingsley Plan discussed with: Patient My Orders Orders - MALDONADO VEGA RESIDENT Procedure Category Date Status Time Admit ADMIT 01/13/25 Transmitted 03:01 Code Status CODE 01/13/25 Transmitted 03:01 Vital Signs [facility] 01/13/25 In Process 03:01 Review Orders With [facility] 01/13/25 In Process Adm. 03:01 Encourage Activity As [facility] 01/13/25 In Process Tolerate 03:01 Regular Diet DIET 01/13/25 Transmitted Breakfast Sodium Chloride 0.9% PHA 01/13/25 Logged 03:15 Acetaminophen Tablet PHA 01/13/25 Logged (Tylenol Tablet) 03:15 Notify Of Changes [facility] 01/13/25 In Process From Base 03:01 Advance Directive [facility] 01/13/25 In Process 03:01 Urinalysis LAB 01/13/25 Logged 03:01 Lipid Panel LAB 01/13/25 Logged 03:01 Urine Bacterial KAYLYN 01/13/25 Logged Culture 03:01 Patient Condition ORDERS 01/13/25 Transmitted 03:01 Allergies [facility] 01/13/25 In Process 03:01 Drug Screen LAB 01/13/25 Logged 03:01 Hemoglobin A1c LAB 01/13/25 Logged 03:01 Enoxaparin Sodium PHA 01/13/25 Logged (Lovenox) 10:00 Thyroid Stimulating LAB 01/13/25 Transmitted Hormone 03:09 Free T4 (Free LAB 01/13/25 Transmitted Thyroxine) 03:09 Ammonia LAB 01/13/25 Transmitted 03:09 Electrocardigram EKG 01/13/25 Logged 03:09 B-Type Natriuretic LAB 01/13/25 Transmitted Peptide 03:09 Rapid Influenza A&B LAB 01/13/25 Transmitted 03:09 Covid19 Antigen Emily LAB 01/13/25 Transmitted Date of Service: Jan 13, 2025 ([facility] Patient ) Billing Provider: LINCOLN BILLINGSLEY MD Common Visit Codes: [id number] INP/OBS CARE (HIGH) Secondary Visit Codes: [id number] CARE PLAN 30 MINUTES MALDONADO VEGA RESIDENT Jan 13, 2025 03:31 LINCOLN BILLINGSLEY MD Jan 13, 2025 12:51
[2025-01-13] MEDS: SODIUM CHLORIDE 0.9% 1,000 ML IV SCH (03:48)
[2025-01-13 03:54] LABS: Triglycerides 86 mg/dL (< 150)
[2025-01-13 03:56] LABS: Cholesterol 116 mg/dL (< 200); HDL Cholesterol 59 mg/dL (40-59)
[2025-01-13] MEDS: SODIUM CHLORIDE 0.9% 500 ML IV ONE (04:41)
[2025-01-13 04:54] LABS: Hematocrit 39.4 % (36.0-46.0); Hemoglobin 14.0 g/dL (12.2-16.2); Mean Corpuscular Hemoglobin 31.6 pg (28.0-32.0); Mean Corpuscular Volume 89.1 fL (80.0-100.0); Nucleated Red Blood Cells % 0.2 %
--- NOTE | 2025-01-13 07:09 | ECG ---
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
[2025-01-13 08:00] VITALS: PULSE 64; RESP 12; O2SAT 98
[2025-01-13 09:19] LABS: COVID19 ANTIGEN SOFIA FIA NEGATIVE (NEGATIVE)
[2025-01-13 09:32] LABS: Urine Protein, UAD Negative (Negative)
[2025-01-13 09:52] LABS: Cannabinoid Screen, Urine Neg (NEGATIVE)
[2025-01-13 09:54] LABS: Amphetamine Screen, Urine Neg (NEGATIVE); Barbiturate Scree,Urine Neg (NEGATIVE); Benzodiazephine Screen, Urine Neg (NEGATIVE); Cocaine Screen, Urine Neg (NEGATIVE); Opiate Scree,Urine Neg (NEGATIVE); Phencyclidine Screen, Urine Neg (NEGATIVE)
[2025-01-13] MEDS: CARVEDILOL 3.125 MG TAB PO SCH (10:00)
[2025-01-13] MEDS: ATORVASTATIN 20 MG TAB PO SCH (11:13)
[2025-01-13] MEDS: ENOXAPARIN SOD 40 MG/0.4 ML SYRINGE SC SCH (11:15)
[2025-01-13 14:50] VITALS: BP 121/62; PULSE 62; RESP 20; TEMP 98.2; O2SAT 97
[2025-01-13 15:43] VITALS: PULSE 89; RESP 17; O2SAT 98
[2025-01-13 17:00] VITALS: BP 121/65; PULSE 62; RESP 18; TEMP 97.5; O2SAT 97
[2025-01-13 20:00] VITALS: PULSE 73; RESP 17; O2SAT 100
[2025-01-13] MEDS: ACETAMINOPHEN 325 MG TAB PO PRN (20:29)
[2025-01-13 21:00] VITALS: BP 134/66; PULSE 90; RESP 19; TEMP 98; O2SAT 100
[2025-01-13] MEDS: BACLOFEN 10 MG TAB PO PRN (23:27)
[2025-01-14] VITALS (8 sets, daily range): BP systolic 136–185; BP diastolic 74–97; PULSE 67–79; RESP 17–19; TEMP 97.9–99.2; O2SAT 94–97
--- NOTE | 2025-01-14 16:10 | DVHPN2 ---
Subjective I am assuming the care of the patient from today onwards chart reviewed previous visits reviewed. Patient's 2D echo was done which shows LVH and preserved ejection fraction. Patient is currently denies generalized weakness denies any chest pain or pressure. Changes from previous H/P or p: No Changes Eyes: No Pain, No Vision change, No Conjunctivae inflammation, No Eyelid inflammation, No Other, No Redness ENT: No Ear pain, No Ear discharge, No Nose pain, No Nose discharge, No Nose congestion, No Mouth pain, No Mouth swelling, No Throat pain, No Throat swelling, No Other Cardiovascular: No Chest Pain, No Palpitations, No Orthopnea, No Paroxysmal Noc. Dyspnea, No Edema, No Lt Headedness; Other (Chest tightness) Respiratory: No Cough, No Dry, No Shortness of breath, No SOB with excertion, No Wheezing, No Hemoptysis, No Pleuritic Pain, No Sputum, No Other Gastrointestinal: No Nausea, No Vomiting, No Abdominal Pain, No Diarrhea, No Constipation, No Melena, No Hematochezia, No Other Genitourinary: No Dysuria, No Frequency, No Incontinence, No Hematuria, No Retention, No Other Musculoskeletal: No other, No neck pain, No shoulder pain, No arm pain, No back pain, No hand pain, No leg pain, No foot pain Skin: No Rash, No Lesions, No Jaundice, No Bruising, No Other Objective Vitals Vital Signs Date Time Temp Pulse Resp B/P (MAP) Pulse Ox O2 Delivery O2 Flow Rate FiO2 01/14/25 10:03 75 134/78 01/14/25 09:00 99.2 18 96 99.2 01/14/25 08:00 Room Air* 0 21 Intake/Output Intake and Output 01/14/25 07:00 Intake Total 700 ml Output Total 1200 ml Balance -500 ml Intake Oral 250 ml IV Total 450 ml Output Urine Total 1200 ml # Voids 3 # Bowel Movements 2 Exam HEENT pupils are reactive Neck is supple CV is S1-S2 regular rate and rhythm Respiratory diminished breath sounds bases GI positive bowel sound Extremity no edema 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 Medications Current Medications Medications Dose Ordered Sig/Sam Route Start Time Stop Time Status Last Admin Dose Admin Acetaminophen 650 mg Q6HP PRN PO 01/13/25 03:15 01/14/25 12:22 650 MG Enoxaparin Sodium 40 mg DAILY SC 01/13/25 10:00 01/14/25 10:01 40 MG Losartan Potassium 75 mg DAILY PO 01/13/25 03:15 01/14/25 10:03 75 MG Aspirin 81 mg DAILY PO 01/13/25 10:00 01/14/25 10:01 81 MG Carvedilol 3.125 mg BID PO 01/13/25 10:00 01/14/25 10:03 3.125 MG Atorvastatin Calcium 10 mg DAILY PO 01/13/25 10:00 01/14/25 10:01 10 MG Baclofen 5 mg Q8HP PRN PO 01/13/25 23:30 01/13/25 23:27 5 MG Chlorthalidone 12.5 mg DAILY@BREAKFAST PO 01/15/25 08:00 Laboratory Results Laboratory Tests 01/13/25 02:12 Urinalysis Test 01/13/25 08:34 Urine Color Light-yellow (Yellow) Urine Clarity Clear (Clear) Urine pH 7.0 (5.0-9.0) Urine Specific Gary 1.008 (1.001-1.035) Urine Protein Negative (Negative) Urine Ketones Negative (Negative) Urine Blood Negative /uL (Negative) Urine Nitrite Negative (Negative) Urine Bilirubin Negative (Negative) Urine Urobilinogen Normal mg/dL (Negative) Urine Leukocyte Esterase Negative /uL (Negative) Urine RBC 1 /hpf (0 - 4) Urine Microscopic WBC 1 /HPF (0-5) Urine Squamous Epithelial Cells Few /hpf (<5) Urine Bacteria None seen /hpf (None Seen) Urine Glucose Normal mg/dL (Normal) Microbiology Microbiology Date/Time Source Procedure Growth Status 01/13/25 08:34 Voided Urine Urine Culture - Preliminary Resulted Assessment/Plan Assessment/Plan 79-year-old female with a known history of hypertension, Alzheimer dementia, restless leg syndrome, dyslipidemia who initially presented to the hospital generalized weakness and chest pressure found to have 1. Chest pain TX ruled out 2. Hypertensive urgency, currently resolved add chlorthalidone, continue carvedilol and losartan 3. LVH with the aortic root dilatation 4. Generalized weakness 5. Restless leg syndrome 6. Early cognitive decline 7. Anxiety disorder -continue carvedilol continue losartan add chlorthalidone discontinue IV fluids -physical therapy evaluation and treatment -home health home safety evaluation Plan discussed with: Patient My Orders Orders - TIN ENGLAND MD Procedure Category Date Status Time Chlorthalidone PHA 01/15/25 In Process (Chlorthalidone) 08:00 * Cardiology Consult CONS 01/14/25 Transmitted 15:11 Date of Service: Jan 14, 2025 Billing Provider: TIN ENGLAND MD Common Visit Codes: NOT BILLABLE TIN ENGLAND MD Jan 14, 2025 16:10
[2025-01-14] MEDS: CHLORTHALIDONE 25 MG TAB PO ONE (16:16)
--- NOTE | 2025-01-14 22:51 | DVHINCON2 ---
Date of service: Jan 14, 2025 Referring Physician Greta Reason for Consultation CAD History of Present Illness This is a 79-year-old female with a PMH of HTN who was brought in by EMS for complaints of generalized weakness as well as upper chest pressure for the past several hours. Patient additionally complains of uncontrolled hypertensive concerns. Patient states she has been in and out of the hospital over the past month for same complaints. Patient utilize medications as prescribed, but states her blood pressure continues to fluctuate. Patient's blood pressure at arrival was 199/77. EKG is NSR at 69. Chest x-ray shows NAD. Troponin 33 > 35 > 36. UDS is negative. UA is WNL. CBC and Chemistry are WNL. Patient was admitted to the hospital. I am asked to consult on this patient. Family History: FH: emphysema G8 FATHER FH: lung cancer G8 FATHER FH: multiple myeloma G8 MOTHER, , Age: 92 Allergies: Coded Allergies: NO KNOWN ALLERGIES (Unverified , 03/21/22) Home Meds Active Scripts Clonidine Hydrochloride (Clonidine Hcl) 0.1 Mg Tab, 0.1 MG PO TID PRN, #60 TAB Prov:TIN ENGLAND MD 01/01/25 Chlorthalidone (Chlorthalidone) 25 Mg Tab, 12.5 MG PO DAILY@BREAKFAST for 60 Days, #30 TAB Prov:TIN ENGLAND MD 01/01/25 Losartan Potassium (Losartan Potassium) 25 Mg Tab, 75 MG PO DAILY for 60 Days, #180 TAB Prov:TIN ENGLAND MD 12/28/24 Aspirin (Aspirin Low Dose) 81 Mg Tab, 81 MG PO DAILY, #60 TAB Prov:TIN ENGLAND MD 12/28/24 Senna (Senokot Extra Strength) 17.2 Mg Tab, 17.2 MG PO QPM, #30 TAB Prov:MAX LAWRENCE MD 09/01/24 Reported Medications Memantine Hydrochloride (Memantine HCl) 10 Mg Tab, 10 MG PO BID for memory, TAB 12/20/23 Gabapentin (Gabapentin) 300 Mg Cap, 300 MG PO QAM, MG 12/20/23 Donepezil Hydrochloride (DONEPEZIL HCL) 5 Mg Tab, 5 MG PO DAILY for dementia, MG 12/20/23 Acetaminophen (Tylenol Extra Strength) 500 Mg Tab, 500 MG PO PRN, TAB 12/20/23 Sucralfate (Sucralfate) 1 Gm Tab, 1 GM PO BIDP PRN for gerd, GM 12/20/23 Famotidine (Famotidine) 20 Mg Tab, 20 MG PO BID, MG 12/20/23 Ropinirole Hydrochloride (Ropinirole Hcl) 0.5 Mg Tab, 0.5 MG PO HS, TAB 12/20/23 Coenzyme Q10 (Coq10) Unknown Strength Cap, PO, CAP 01/05/23 Fenofibrate (Fenofibrate) 160 Mg Tab, 160 MG PO DAILY, TAB 01/05/23 Cholecalciferol (D3 2000) 2,000 Unit Tab, 5000 UNIT PO, TAB 07/12/22 Multiple Vitamin (Multivitamins) Tab, 1 TAB PO DAILY, #90 TAB 3 Refills 07/12/22 Amitriptyline HCl (Amitriptyline Hydrochlori) 50 Mg Tab, 2 TAB PO HS 03/22/22 Atorvastatin Calcium (ATORVASTATIN CALCIUM) 40 Mg Tab, 1 TAB PO HS 03/22/22 Current Medications Current Medications Medications (Trade) Dose Ordered Sig/Sam Route PRN Reason Start Time Stop Time Status Last Admin Baclofen (Liorisal Tablet) 5 mg Q8HP PRN PO FOR MUSCLE SPASM 01/13/25 23:30 01/14/25 20:59 Chlorthalidone (Chlorthalidone) 12.5 mg DAILY@BREAKFAST PO 01/15/25 08:00 Review of Systems Constitutional: reports: fatigue, weakness; denies: chills, diaphoresis, fever, malaise, sweats, others EENTM: denies: blurred vision, double vision, ear bleeding, ear discharge, ear drainage, ear pain, ear ringing, eye pain, eye redness, hearing loss, mouth pain, mouth swelling, nasal discharge, nose bleeding, nose congestion, nose pain, photophobia, tearing, throat pain, throat swelling, voice changes, others Respiratory: denies: cough, hemoptysis, orthopnea, SOB at rest, shortness of breath, SOB with excertion, stridor, wheezing, others Cardiovascular: reports: chest pain; denies: dizzy spells, diaphoresis, Dyspnea on exertion, edema, irregular heart beat, left arm pain, lightheadedness, palpitations, PND, syncope, others Gastrointestinal: denies: abdomen distended, abdominal pain, blood streaked bowels, constipated, diarrhea, dysphagia, difficulty swallowing, hematemesis, melena, nausea, poor appetite, poor fluid intake, rectal bleeding, rectal pain, vomiting, others Genitourinary: denies: abnormal vagina bleeding, burning, dyspareunia, dysuria, flank pain, frequency, hematuria, incontinence, pain, , vagina discharge, urgency, others Neurological: denies: dizziness, fainting, headache, left sided numbness, left sided weakness, numbness, paresthesia, pre-existing deficit, right sided numbness, right sided weakness, seizure, speech problems, tingling, tremors, weakness, others Musculoskeletal: denies: back pain, gout, joint pain, joint swelling, muscle pain, muscle stiffness, neck pain, others Integumetry: denies: bruises, change in color, change in hair/nails, dryness, laceration, lesions, lumps, rash, wounds, others Allergic/Immunocompromised: denies: Difficulty Healing, Frequent Infections, Hives, Itching, others Hematologic/Lymphatic: denies: anemia, blood clots, easy bleeding, easy bruising, swollen glands, others Endocrine: denies: excessive hunger, excessive sweating, excessive thirst, excessive urination, flushing, intolerance to cold, intolerance to heat, unexplained weight gain, unexplained weight loss, others Psychiatric: denies: anxiety, bipolar disorder, depression, hopeless, panic disorder, schizophrenia, sleepless, suicidal, others Vital Signs Vital Signs Date Time Temp Pulse Resp B/P (MAP) Pulse Ox O2 Delivery O2 Flow Rate FiO2 01/14/25 21:00 97.9 74 18 185/97 (126) 96 97.9 01/14/25 20:00 Room Air* 0 21 Physical Exam GENERAL: Alert and oriented x 3. No acute distress. EYES: PERRL, EOMI. Anicteric. HENT: Moist mucous membranes. LUNGS: Clear to auscultation bilaterally. CARDIOVASCULAR: Regular rate and rhythm. ABDOMEN: Soft, non-tender and non-distended. EXTREMITIES: No edema. NEUROLOGIC: No focal neurological deficits. SKIN: Warm, dry. Labs/Diagnostic Data Labs Test 01/13/25 08:34 01/13/25 08:25 01/13/25 06:56 01/13/25 03:25 Range/Units Urine Color Light-yellow Yellow Urine Clarity Clear Clear Urine pH 7.0 5.0-9.0 Urine Specific [place] 1.008 1.001-1.035 Urine Protein Negative Negative Urine Ketones Negative Negative Urine Blood Negative Negative /uL Urine Nitrite Negative Negative Urine Bilirubin Negative Negative Urine Urobilinogen Normal Negative mg/dL Urine Leukocyte Esterase Negative Negative /uL Urine RBC 1 0 - 4 /hpf Urine Microscopic WBC 1 0-5 /HPF Urine Squamous Epithelial Cells Few <5 /hpf Urine Bacteria None seen None Seen /hpf Urine Glucose Normal Normal mg/dL Urine Opiates Screen Neg NEGATIVE Urine Fentanyl Screen Neg NEGATIVE Urine Barbiturates Screen Neg NEGATIVE Urine Phencyclidine Screen Neg NEGATIVE Urine Amphetamines Screen Neg NEGATIVE Urine Benzodiazepines Screen Neg NEGATIVE Urine Cocaine Screen Neg NEGATIVE Urine Cannabinoids Screen Neg NEGATIVE Influenza Type A Antigen Negative Negative Influenza Type B Antigen Negative Negative SARS-CoV-2 Antigen (Rapid) Negative NEGATIVE Troponin I High Sensitivity 36 *H </=34 ng/L Ammonia 23 11-32 umol/L Test 01/13/25 02:12 Range/Units White Blood Count 6.9 4.4-10.8 10^3/uL Red Blood Count 4.42 4.0-5.20 10^6/uL Hemoglobin 14.0 12.2-16.2 g/dL Hematocrit 39.4 36.0-46.0 % Mean Corpuscular Volume 89.1 80.0-100.0 fL Mean Corpuscular Hemoglobin 31.6 28.0-32.0 pg Mean Corpuscular Hemoglobin Concent 35.5 32.0-36.0 g/dL Red Cell Distribution Width 14.0 11.8-14.3 % Platelet Count 303 140-450 10^3/uL Mean Platelet Volume 8.2 6.9-10.8 fL Neutrophils (%) (Auto) 51.2 37.0-80.0 % Lymphocytes (%) (Auto) 37.2 10.0-50.0 % Monocytes (%) (Auto) 10.2 0.0-12.0 % Eosinophils (%) (Auto) 0.4 0.0-7.0 % Basophils (%) (Auto) 1.0 0.0-2.0 % Neutrophils # (Auto) 3.6 1.6-8.6 10 ^3/uL Lymphocytes # (Auto) 2.6 0.4-5.4 10 ^3/uL Monocytes # (Auto) 0.7 0-1.3 10 ^3/uL Eosinophils # (Auto) 0 0-0.8 10 ^3/uL Basophils # (Auto) 0.1 0-0.2 10 ^3/uL Nucleated Red Blood Cells 0.2 % Sodium Level 126 L 136-145 mmol/L Potassium Level 4.0 3.5-5.1 mmol/L Chloride Level 89 L 98-107 mmol/L Carbon Dioxide Level 28 20-31 mmol/L Anion Gap 9 5-15 Blood Urea Nitrogen 10 9-23 mg/dL Creatinine 0.76 0.550-1.02 mg/dL Glomerular Filtration Rate Calc 79 >90 mL/min BUN/Creatinine Ratio 13.2 10.0-20.0 Serum Glucose 104 74-106 mg/dL Hemoglobin A1c 5.2 <5.7 % A1C Lactic Acid Level 1.3 0.4-2.0 mmol/L Calcium Level 10.2 8.7-10.4 mg/dL Total Bilirubin 0.5 0.2-1.0 mg/dL Aspartate Amino Transferase (AST) 54 H 13-40 U/L Alanine Aminotransferase (ALT) 43 H 7-40 U/L Alkaline Phosphatase 73 46-116 U/L B-Type Natriuretic Peptide 41.00 0-100 pg/mL Total Protein 6.3 5.7-8.2 g/dL Albumin 4.0 3.2-4.8 g/dL Triglycerides Level 86 < 150 mg/dL Cholesterol Level 116 < 200 mg/dL LDL Cholesterol 41 < 100 mg/dL HDL Cholesterol 59 40-59 mg/dL Lipase 53 12-53 U/L Thyroid Stimulating Hormone (TSH) 0.76 0.55-4.78 uIU/mL Free Thyroxine (T4) Calculated 1.27 0.89-1.76 ng/dL Microbiology Date/Time Source Procedure Growth Status 01/13/25 17:53 Nose MRSA Screen - Final Complete 01/13/25 08:34 Voided Urine Urine Culture - Preliminary Resulted Assessment Chest pain. Hypertensive urgency. LVH with the aortic root dilatation. Generalized weakness. Restless leg syndrome. Early cognitive decline. Anxiety disorder. CAD. Plan/Recommendation I agree with your ongoing assessment and care of plan. Aspirin, Lipitor. Coreg, Losartan. DVT prophylactics. Additional plan as per the hospital course. A total of 45 minutes was spent reviewing the patient record, examining the patient, making a diagnostic and therapeutic plan, discussing this plan with medical personnel, following up on diagnostic studies and following the patient for clinical stability excluding any and all procedures. At least 50% of this time was spent in direct, [id number] contact. Plan discussed with: Patient JOSÉ MIGUEL WATTS MD Jan 14, 2025 22:51
[2025-01-15] VITALS (8 sets, daily range): BP systolic 147–195; BP diastolic 86–99; PULSE 69–99; RESP 18–20; TEMP 97.2–98.4; O2SAT 92–97
[2025-01-15] MEDS: GABAPENTIN 300 MG CAP PO ONE (00:48)
[2025-01-15] MEDS: CARVEDILOL 3.125 MG TAB PO ONE ×2 (01:37→18:01)
[2025-01-15] MEDS: CARVEDILOL 3.125 MG TAB PO SCH ×2 (09:28→21:40)
[2025-01-15] MEDS: CHLORTHALIDONE 25 MG TAB PO SCH (09:29)
[2025-01-15 14:29] LABS: Hematocrit 43.2 % (36.0-46.0); Hemoglobin 14.9 g/dL (12.2-16.2); Mean Corpuscular Hemoglobin 31.5 pg (28.0-32.0); Mean Corpuscular Volume 91.0 fL (80.0-100.0); Nucleated Red Blood Cells % 0.0 %
[2025-01-15 14:35] LABS: Potassium 3.5 mmol/L (3.5-5.1); Sodium 136 mmol/L (136-145)
[2025-01-15 14:36] LABS: Anion Gap 9 (5-15); Calcium 10.2 mg/dL (8.7-10.4); Carbon Dioxide 30 mmol/L (20-31)
[2025-01-15 14:41] LABS: BUN/Creatinine Ratio 13.0 (10.0-20.0); Blood Urea Nitrogen 10 mg/dL (9-23); Chloride 97 mmol/L (98-107); Glucose 199 mg/dL (74-106); Magnesium 1.5 mg/dL (1.6-2.6)
--- NOTE | 2025-01-15 16:24 | DVHPN2 ---
Subjective Patient crusting sleeping aid as she can not sleep, blood pressure is controlled, chlorthalidone added. Changes from previous H/P or p: No Changes Eyes: No Pain, No Vision change, No Conjunctivae inflammation, No Eyelid inflammation, No Other, No Redness ENT: No Ear pain, No Ear discharge, No Nose pain, No Nose discharge, No Nose congestion, No Mouth pain, No Mouth swelling, No Throat pain, No Throat swelling, No Other Cardiovascular: No Chest Pain, No Palpitations, No Orthopnea, No Paroxysmal Noc. Dyspnea, No Edema, No Lt Headedness; Other (Chest tightness) Respiratory: No Cough, No Dry, No Shortness of breath, No SOB with excertion, No Wheezing, No Hemoptysis, No Pleuritic Pain, No Sputum, No Other Gastrointestinal: No Nausea, No Vomiting, No Abdominal Pain, No Diarrhea, No Constipation, No Melena, No Hematochezia, No Other Genitourinary: No Dysuria, No Frequency, No Incontinence, No Hematuria, No Retention, No Other Musculoskeletal: No other, No neck pain, No shoulder pain, No arm pain, No back pain, No hand pain, No leg pain, No foot pain Skin: No Rash, No Lesions, No Jaundice, No Bruising, No Other Objective Vitals Vital Signs Date Time Temp Pulse Resp B/P (MAP) Pulse Ox O2 Delivery O2 Flow Rate FiO2 01/15/25 13:00 98.4 69 18 147/86 (106) 94 98.4 01/15/25 08:00 Room Air* 0 21 Intake/Output Intake and Output 01/15/25 07:00 Intake Total 608 ml Balance 608 ml Intake Oral 608 ml # Voids 6 # Bowel Movements 2 Exam HEENT pupils are reactive Neck is supple CV is S1-S2 regular rate and rhythm Respiratory diminished breath sounds bases GI positive bowel sound Extremity no edema PROPERTY DAMAGE CLAIMS AD[employer]OR no motor deficit Medications Current Medications Medications Dose Ordered Sig/Sam Route Start Time Stop Time Status Last Admin Dose Admin Acetaminophen 650 mg Q6HP PRN PO 01/13/25 03:15 01/15/25 00:49 650 MG Enoxaparin Sodium 40 mg DAILY SC 01/13/25 10:00 01/15/25 09:26 40 MG Losartan Potassium 75 mg DAILY PO 01/13/25 03:15 01/15/25 09:40 75 MG Aspirin 81 mg DAILY PO 01/13/25 10:00 01/15/25 09:30 81 MG Atorvastatin Calcium 10 mg DAILY PO 01/13/25 10:00 01/15/25 09:29 10 MG Baclofen 5 mg Q8HP PRN PO 01/13/25 23:30 01/15/25 16:01 5 MG Chlorthalidone 12.5 mg DAILY@BREAKFAST PO 01/15/25 08:00 01/15/25 09:29 12.5 MG Carvedilol 6.25 mg BID PO 01/15/25 22:00 Clonidine HCl 0.2 mg BID PO 01/15/25 22:00 Melatonin 5 mg HS PO 01/15/25 22:00 Laboratory Results Laboratory Tests 01/15/25 14:02 Chemistry Test 01/15/25 14:02 Calcium Level 10.2 mg/dL (8.7-10.4) Magnesium Level 1.5 mg/dL (1.6-2.6) L Urinalysis Test 01/13/25 08:34 Urine Color Light-yellow (Yellow) Urine Clarity Clear (Clear) Urine pH 7.0 (5.0-9.0) Urine Specific [place] 1.008 (1.001-1.035) Urine Protein Negative (Negative) Urine Ketones Negative (Negative) Urine Blood Negative /uL (Negative) Urine Nitrite Negative (Negative) Urine Bilirubin Negative (Negative) Urine Urobilinogen Normal mg/dL (Negative) Urine Leukocyte Esterase Negative /uL (Negative) Urine RBC 1 /hpf (0 - 4) Urine Microscopic WBC 1 /HPF (0-5) Urine Squamous Epithelial Cells Few /hpf (<5) Urine Bacteria None seen /hpf (None Seen) Urine Glucose Normal mg/dL (Normal) Microbiology Microbiology Date/Time Source Procedure Growth Status 01/13/25 17:53 Nose MRSA Screen - Final Complete 01/13/25 08:34 Voided Urine Urine Culture - Final Complete Assessment/Plan Assessment/Plan 79-year-old female with a known history of hypertension, Alzheimer dementia, restless leg syndrome, dyslipidemia who initially presented to the hospital generalized weakness and chest pressure found to have 1. Chest pain NC ruled out 2. Hypertensive urgency, currently resolved add chlorthalidone, continue carvedilol and losartan 3. LVH with the aortic root dilatation 4. Generalized weakness 5. Restless leg syndrome 6. Early cognitive decline 7. Anxiety disorder -continue carvedilol continue losartan add chlorthalidone discontinue IV fluids -start melatonin p.r.n. insomnia. -physical therapy evaluation and treatment -home health home safety evaluation Plan discussed with: Patient My Orders Orders - TIN ENGLAND MD Procedure Category Date Status Time * Cardiology Consult CONS 01/14/25 Transmitted 17:55 Pt Request For Service PT 01/15/25 Logged 08:42 Carvedilol Tablet PHA 01/15/25 In Process (Coreg Tablet) 22:00 Clonidine Hcl Tablet PHA 01/15/25 In Process (Catapres Tablet) 22:00 Melatonin (Melatonin) PHA 01/15/25 In Process 22:00 Pt Request For Service PT 01/15/25 Logged 14:12 Date of Service: Jan 15, 2025 Billing Provider: TIN ENGLAND MD Common Visit Codes: NOT BILLABLE TIN ENGLAND MD Jan 15, 2025 16:24
[2025-01-15] MEDS ORDERED: hydrALAZINE HCL 20 MG/ML VL IV PRN (17:15)
--- NOTE | 2025-01-15 17:18 | DVHPN2 ---
Progress Note Date Seen: Jan 15, 2025 Resident Creating Document: ADELAIDE CISNEROS RESIDENT Has the PT tested + for MRSA If YES, has PT been informed?: No Medical Necessity Reason Pt with a Central, PICC or Fol: No Subjective Review of Systems This is a 79-year-old female with a PMH of HTN who was brought in by EMS for complaints of generalized weakness as well as upper chest pressure for the past several hours. Patient additionally complains of uncontrolled hypertensive concerns. Patient states she has been in and out of the hospital over the past month for same complaints. Patient utilize medications as prescribed, but states her blood pressure continues to fluctuate. Patient's blood pressure at arrival was 199/77. EKG is NSR at 69. Chest x-ray shows NAD. Troponin 33 > 35 > 36. UDS is negative. UA is WNL. CBC and Chemistry are WNL. Patient was admitted to the hospital. Objective vital signs Vital Sign Date Time Temp Pulse Resp B/P (MAP) Pulse Ox O2 Delivery O2 Flow Rate FiO2 01/15/25 13:00 98.4 69 18 147/86 (106) 94 98.4 01/15/25 08:00 Room Air* 0 21 Total Intake and Output 01/14/25 01/14/25 01/15/25 15:00 23:00 07:00 Intake Total 508 ml 100 ml Balance 508 ml 100 ml medications Current Medications Medications Dose Ordered Sig/Sam Route Start Time Stop Time Status Last Admin Dose Admin Acetaminophen 650 mg Q6HP PRN PO 01/13/25 03:15 01/15/25 00:49 650 MG Enoxaparin Sodium 40 mg DAILY SC 01/13/25 10:00 01/15/25 09:26 40 MG Losartan Potassium 75 mg DAILY PO 01/13/25 03:15 01/15/25 09:40 75 MG Aspirin 81 mg DAILY PO 01/13/25 10:00 01/15/25 09:30 81 MG Atorvastatin Calcium 10 mg DAILY PO 01/13/25 10:00 01/15/25 09:29 10 MG Baclofen 5 mg Q8HP PRN PO 01/13/25 23:30 01/15/25 16:01 5 MG Chlorthalidone 12.5 mg DAILY@BREAKFAST PO 01/15/25 08:00 01/15/25 09:29 12.5 MG Carvedilol 6.25 mg BID PO 01/15/25 22:00 Clonidine HCl 0.2 mg BID PO 01/15/25 22:00 Melatonin 5 mg HS PO 01/15/25 22:00 Gabapentin 300 mg TID PO 01/15/25 22:00 Donepezil HCl 5 mg HS PO 01/15/25 22:00 Memantine 10 mg Q12HR PO 01/15/25 22:00 Patient Own Medication 1 DAILY PO 01/16/25 10:00 Examination General Appearance: Alert, Oriented X3, Cooperative, No acute distress HEENT: Atraumatic, PERRLA, EOMI, Mucous membr. moist/pink Respiratory: Clear to auscultation, Normal air movement Cardiovascular: Regular rate, Normal S1, Normal S2, No murmurs Abdominal: Normal bowel sounds, Soft, No tenderness, No hepatospenomegaly, No masses Extremities: No clubbing, No cyanosis, No edema, Normal pulses, No tenderness/swelling Skin: No rashes, No breakdown, No significant lesion Neuro: Normal gait, Normal speech, Strength at 5/5 X4 ext, Normal tone, Sensation intact, Cranial nerves 3-12 NL, Reflexes 2+ Psych/Mental Status: Mental status NL, Mood NL laboratory and microbiology Laboratory Tests 01/15/25 14:02 Test 01/15/25 14:02 Range/Units Serum Glucose 199 H 74-106 mg/dL Microbiology Date/Time Source Procedure Growth Status 01/13/25 17:53 Nose MRSA Screen - Final Complete 01/13/25 08:34 Voided Urine Urine Culture - Final Complete Labs and/or images reviewed: Labs reviewed by me, Image(s) reviewed by me Problem List/Assessment/Plan Problem List/Assessment/Plan Assessment NSTEMI likely type II from below Chest pain. Hypertensive urgency. LVH with the aortic root dilatation. Generalized weakness. Restless leg syndrome. Early cognitive decline. Anxiety disorder. CAD. Plan/Recommendation We will continue the following plan/recommendations (Dr. Can): Elevated troponins EKG Echocardiogram on 12/29/2024 showed LVEF 65%, concentric hypertrophy with aortic root enlargement Control blood pressure Aspirin, Lipitor. Coreg, Losartan. Risk factor modification DVT prophylactics. Additional plan as per the hospital course. Case discussed with Dr. Can Thank you for allowing us to care for this patient Plan discussed with: Patient My Orders My Orders Orders - BLAYNE,KHAJA RESIDENT Procedure Category Date Status Time Magnesium Sulfate PHA 01/15/25 Logged 1gm/100ml 18:00 ADELAIDE CISNEROS Jan 15, 2025 17:18
[2025-01-15] MEDS: MAGNESIUM SULFATE 1GM/100ML 100 ML IV SCH (20:10)
[2025-01-15] MEDS: ROPINIROLE 1 MG TABLET PO SCH (21:33)
[2025-01-15] MEDS: DONEPEZIL HYDROCHLORIDE 5 MG TAB PO SCH (21:35)
[2025-01-15] MEDS: MELATONIN 5 MG TAB PO SCH (21:39)
[2025-01-15] MEDS: GABAPENTIN 300 MG CAP PO SCH (21:40)
[2025-01-15] MEDS: MEMANTINE HCL 5 MG TAB PO SCH (21:41)
[2025-01-15] MEDS ORDERED: PATIENTS OWN MEDICATION PO ONE (22:00)
--- NOTE | 2025-01-15 22:49 | DVHPN2 ---
Progress Note - Dictate Date Seen: Jan 15, 2025 Has the PT tested + for MRSA If YES, has PT been informed?: No Medical Necessity Reason Pt with a Central, PICC or Fol: No Subjective Patient was seen and evaluated in follow up. This is a 79-year-old female with a PMH of HTN who was brought in by EMS for complaints of generalized weakness as well as upper chest pressure for the past several hours. Patient additionally complains of uncontrolled hypertensive concerns. Patient states she has been in and out of the hospital over the past month for same complaints. Patient utilize medications as prescribed, but states her blood pressure continues to fluctuate. Patient's blood pressure at arrival was 199/77. EKG is NSR at 69. Chest x-ray shows NAD. Troponin 33 > 35 > 36. UDS is negative. UA is WNL. CBC and Chemistry are WNL. vital signs Vital Sign Date Time Temp Pulse Resp B/P (MAP) Pulse Ox O2 Delivery O2 Flow Rate FiO2 01/15/25 21:40 79 195/95 01/15/25 20:59 98.3 18 96 98.3 01/15/25 20:00 Room Air* 0 21 Total Intake and Output 01/14/25 01/14/25 01/15/25 15:00 23:00 07:00 Intake Total 508 ml 100 ml Balance 508 ml 100 ml medications Current Medications Medications Dose Ordered Sig/Sam Route Start Time Stop Time Status Last Admin Dose Admin Acetaminophen 650 mg Q6HP PRN PO 01/13/25 03:15 01/15/25 00:49 650 MG Enoxaparin Sodium 40 mg DAILY SC 01/13/25 10:00 01/15/25 09:26 40 MG Losartan Potassium 75 mg DAILY PO 01/13/25 03:15 01/15/25 09:40 75 MG Aspirin 81 mg DAILY PO 01/13/25 10:00 01/15/25 09:30 81 MG Atorvastatin Calcium 10 mg DAILY PO 01/13/25 10:00 01/15/25 09:29 10 MG Baclofen 5 mg Q8HP PRN PO 01/13/25 23:30 01/15/25 16:01 5 MG Chlorthalidone 12.5 mg DAILY@BREAKFAST PO 01/15/25 08:00 01/15/25 09:29 12.5 MG Carvedilol 6.25 mg BID PO 01/15/25 22:00 01/15/25 21:40 6.25 MG Clonidine HCl 0.2 mg BID PO 01/15/25 22:00 01/15/25 21:35 0.2 MG Melatonin 5 mg HS PO 01/15/25 22:00 01/15/25 21:39 5 MG Gabapentin 300 mg TID PO 01/15/25 22:00 01/15/25 21:40 300 MG Donepezil HCl 5 mg HS PO 01/15/25 22:00 01/15/25 21:35 5 MG Memantine 10 mg Q12HR PO 01/15/25 22:00 01/15/25 21:41 10 MG Patient Own Medication 1 HS PO 01/15/25 22:00 01/15/25 21:33 1 Hydralazine HCl 10 mg Q4HPRN PRN IV 01/15/25 17:15 objective General Appearance: Alert, Oriented X3, Cooperative, No acute distress HEENT: Atraumatic, PERRLA, EOMI, Mucous membr. moist/pink Respiratory: Clear to auscultation, Normal air movement Cardiovascular: Regular rate, Normal S1, Normal S2, No murmurs Abdominal: Normal bowel sounds, Soft, No tenderness, No hepatospenomegaly, No masses Extremities: No clubbing, No cyanosis, No edema, Normal pulses, No tenderness/swelling Skin: No rashes, No breakdown, No significant lesion Neuro: Normal gait, Normal speech, Strength at 5/5 X4 ext, Normal tone, Sensation intact, Cranial nerves 3-12 NL, Reflexes 2+ Psych/Mental Status: Mental status NL, Mood NL laboratory and microbiology Laboratory Tests 01/15/25 14:02 Test 01/15/25 14:02 Range/Units Serum Glucose 199 H 74-106 mg/dL Problem List NSTEMI likely type II from below. Chest pain. Hypertensive urgency. LVH with the aortic root dilatation. Generalized weakness. Restless leg syndrome. Early cognitive decline. Anxiety disorder. CAD. Assessment/Plan Continued all current supportive medical care. Patient has been seen by Thelma Colon, Resident on my behalf. We have discussed the plan with the patient. EKG. Echocardiogram on 12/29/2024 showed LVEF 65%, concentric hypertrophy with aortic root enlargement. Control blood pressure. Aspirin, Lipitor. Coreg, Losartan. Risk factor modification. DVT prophylactics. Additional plan as per the hospital course. Plan discussed with: Patient JOSÉ MIGUEL WATTS MD Jan 15, 2025 22:49
[2025-01-16 01:00] VITALS: BP 140/72; PULSE 62; RESP 19; TEMP 98.3; O2SAT 93
[2025-01-16 05:00] VITALS: BP 153/84; PULSE 70; RESP 18; TEMP 97.9; O2SAT 93
[2025-01-16 07:30] VITALS: RESP 16
[2025-01-16 08:40] VITALS: BP 150/75; PULSE 97; RESP 16; TEMP 98.3; O2SAT 97
[2025-01-16 13:00] VITALS: BP 110/56; PULSE 59; RESP 18; TEMP 97.6; O2SAT 94
--- NOTE | 2025-01-16 13:26 | DVHDS2 ---
Discharge Summary Date of Admission Jan 13, 2025 at 03:01 Date of Discharge: Jan 16, 2025 Labs/Diagnostic Data: Laboratory Results Test 01/15/25 14:02 01/13/25 08:34 01/13/25 08:25 01/13/25 06:56 White Blood Count 8.8 10^3/uL (4.4-10.8) Red Blood Count 4.75 10^6/uL (4.0-5.20) Hemoglobin 14.9 g/dL (12.2-16.2) Hematocrit 43.2 % (36.0-46.0) Mean Corpuscular Volume 91.0 fL (80.0-100.0) Mean Corpuscular Hemoglobin 31.5 pg (28.0-32.0) Mean Corpuscular Hemoglobin Concent 34.6 g/dL (32.0-36.0) Red Cell Distribution Width 14.2 % (11.8-14.3) Platelet Count 357 10^3/uL (140-450) Mean Platelet Volume 7.4 fL (6.9-10.8) Neutrophils (%) (Auto) 69.5 % (37.0-80.0) Lymphocytes (%) (Auto) 19.7 % (10.0-50.0) Monocytes (%) (Auto) 9.4 % (0.0-12.0) Eosinophils (%) (Auto) 0.6 % (0.0-7.0) Basophils (%) (Auto) 0.8 % (0.0-2.0) Neutrophils # (Auto) 6.1 10 ^3/uL (1.6-8.6) Lymphocytes # (Auto) 1.7 10 ^3/uL (0.4-5.4) Monocytes # (Auto) 0.8 10 ^3/uL (0-1.3) Eosinophils # (Auto) 0 10 ^3/uL (0-0.8) Basophils # (Auto) 0.1 10 ^3/uL (0-0.2) Nucleated Red Blood Cells 0.0 % Sodium Level 136 mmol/L (136-145) Potassium Level 3.5 mmol/L (3.5-5.1) Chloride Level 97 mmol/L (98-107) Carbon Dioxide Level 30 mmol/L (20-31) Anion Gap 9 (5-15) Blood Urea Nitrogen 10 mg/dL (9-23) Creatinine 0.77 mg/dL (0.550-1.02) Glomerular Filtration Rate Calc 77 mL/min (>90) BUN/Creatinine Ratio 13.0 (10.0-20.0) Serum Glucose 199 mg/dL (74-106) Calcium Level 10.2 mg/dL (8.7-10.4) Magnesium Level 1.5 mg/dL (1.6-2.6) Urine Color Light-yellow (Yellow) Urine Clarity Clear (Clear) Urine pH 7.0 (5.0-9.0) Urine Specific [place] 1.008 (1.001-1.035) Urine Protein Negative (Negative) Urine Ketones Negative (Negative) Urine Blood Negative /uL (Negative) Urine Nitrite Negative (Negative) Urine Bilirubin Negative (Negative) Urine Urobilinogen Normal mg/dL (Negative) Urine Leukocyte Esterase Negative /uL (Negative) Urine RBC 1 /hpf (0 - 4) Urine Microscopic WBC 1 /HPF (0-5) Urine Squamous Epithelial Cells Few /hpf (<5) Urine Bacteria None seen /hpf (None Seen) Urine Glucose Normal mg/dL (Normal) Urine Opiates Screen Neg (NEGATIVE) Urine Fentanyl Screen Neg (NEGATIVE) Urine Barbiturates Screen Neg (NEGATIVE) Urine Phencyclidine Screen Neg (NEGATIVE) Urine Amphetamines Screen Neg (NEGATIVE) Urine Benzodiazepines Screen Neg (NEGATIVE) Urine Cocaine Screen Neg (NEGATIVE) Urine Cannabinoids Screen Neg (NEGATIVE) Influenza Type A Antigen Negative (Negative) Influenza Type B Antigen Negative (Negative) SARS-CoV-2 Antigen (Rapid) Negative (NEGATIVE) Troponin I High Sensitivity 36 ng/L (</=34) Test 01/13/25 03:25 01/13/25 02:12 Ammonia 23 umol/L (11-32) Hemoglobin A1c 5.2 % A1C (<5.7) Lactic Acid Level 1.3 mmol/L (0.4-2.0) Total Bilirubin 0.5 mg/dL (0.2-1.0) Aspartate Amino Transferase (AST) 54 U/L (13-40) Alanine Aminotransferase (ALT) 43 U/L (7-40) Alkaline Phosphatase 73 U/L (46-116) B-Type Natriuretic Peptide 41.00 pg/mL (0-100) Total Protein 6.3 g/dL (5.7-8.2) Albumin 4.0 g/dL (3.2-4.8) Triglycerides Level 86 mg/dL (< 150) Cholesterol Level 116 mg/dL (< 200) LDL Cholesterol 41 mg/dL (< 100) HDL Cholesterol 59 mg/dL (40-59) Lipase 53 U/L (12-53) Thyroid Stimulating Hormone (TSH) 0.76 uIU/mL (0.55-4.78) Free Thyroxine (T4) Calculated 1.27 ng/dL (0.89-1.76) Other Laboratory Tests 01/15/25 14:02 Brief Hx & Hospital Course: 79-year-old female with a known history of hypertension, Alzheimer dementia, restless leg syndrome, dyslipidemia who initially presented to the hospital generalized weakness and chest pressure found to have hypertensive urgency. Patient does take chlorthalidone carvedilol and losartan at home. Patient denies any chest pain shortness of breaths. Patient's medications were adjusted currently patient is being discharged under stable condition with a close follow up as an outpatient with the PCP and Cardiology. Patient will be discharged to senior care facility for physical therapy. Condition at Discharge: Stable Final Diagnosis/Problems List 79-year-old female with a known history of hypertension, Alzheimer dementia, restless leg syndrome, dyslipidemia who initially presented to the hospital generalized weakness and chest pressure found to have 1. Chest pain OK ruled out 2. Hypertensive urgency, currently resolved add chlorthalidone, continue carvedilol and losartan 3. LVH with the aortic root dilatation 4. Generalized weakness 5. Restless leg syndrome 6. Early cognitive decline 7. Anxiety disorder Discharge Disposition: Senior Care Facility SNF Discharge Will this Physician continue t: No Discharge Instruct/Medications Diet: Cardiac 2g Na,low cholest Activity: No Restrictions, As Tolerated Follow Up/Referral: Follow up with the PCP in one week Follow up with the Cardiology Dr. Thompson in 1-2 weeks Medications: As reconciled. Continued Medications: Acetaminophen (Tylenol Extra Strength) 500 Mg Tab 500 MG PO PRN, TAB Amitriptyline HCl (Amitriptyline Hydrochlori) 50 Mg Tab 2 TAB PO HS Aspirin (Aspirin Low Dose) 81 Mg Tab 81 MG PO DAILY, #60 TAB Atorvastatin Calcium (Atorvastatin Calcium) 40 Mg Tab 1 TAB PO HS Chlorthalidone (Chlorthalidone) 25 Mg Tab 12.5 MG PO DAILY@BREAKFAST for 60 Days, #30 TAB Cholecalciferol (D3 2000) 2,000 Unit Tab 5000 UNIT PO, TAB Coenzyme Q10 (Coq10) Unknown Strength Cap Unknown Dose PO, CAP Donepezil Hydrochloride (Donepezil Hcl) 5 Mg Tab 5 MG PO DAILY for dementia, MG Famotidine (Famotidine) 20 Mg Tab 20 MG PO BID, MG Fenofibrate (Fenofibrate) 160 Mg Tab 160 MG PO DAILY, TAB Gabapentin (Gabapentin) 300 Mg Cap 300 MG PO QAM, MG Losartan Potassium (Losartan Potassium) 25 Mg Tab 75 MG PO DAILY for 60 Days, #180 TAB Memantine Hydrochloride (Memantine HCl) 10 Mg Tab 10 MG PO BID for memory, TAB Multiple Vitamin (Multivitamins) Tab 1 TAB PO DAILY, #90 TAB 3 Refills Ropinirole Hydrochloride (Ropinirole Hcl) 0.5 Mg Tab 0.5 MG PO HS, TAB Senna (Senokot Extra Strength) 17.2 Mg Tab 17.2 MG PO QPM, #30 TAB Sucralfate (Sucralfate) 1 Gm Tab 1 GM PO BIDP PRN for gerd, GM Discontinued Medications: Clonidine Hydrochloride (Clonidine Hcl) 0.1 Mg Tab 0.1 MG PO TID PRN, #60 TAB Scheduled Acetaminophen (Tylenol Extra Strength), 500 MG PO PRN, (Reported) Amitriptyline HCl (Amitriptyline Hydrochlori), 2 TAB PO HS, (Reported) Aspirin (Aspirin Low Dose), 81 MG PO DAILY Atorvastatin Calcium (Atorvastatin Calcium), 1 TAB PO HS, (Reported) Chlorthalidone (Chlorthalidone), 12.5 MG PO DAILY@BREAKFAST Donepezil Hydrochloride (Donepezil Hcl), 5 MG PO DAILY, (Reported) Famotidine (Famotidine), 20 MG PO BID, (Reported) Fenofibrate (Fenofibrate), 160 MG PO DAILY, (Reported) Gabapentin (Gabapentin), 300 MG PO QAM, (Reported) Losartan Potassium (Losartan Potassium), 75 MG PO DAILY Memantine Hydrochloride (Memantine HCl), 10 MG PO BID, (Reported) Multiple Vitamin (Multivitamins), 1 TAB PO DAILY, (Reported) Ropinirole Hydrochloride (Ropinirole Hcl), 0.5 MG PO HS, (Reported) Senna (Senokot Extra Strength), 17.2 MG PO QPM Scheduled PRN Clonidine Hydrochloride (Clonidine Hcl), 0.1 MG PO TID PRN Sucralfate (Sucralfate), 1 GM PO BIDP PRN for gerd, (Reported) Miscellaneous Medications Cholecalciferol (D3 2000), 5,000 UNIT PO, (Reported) Coenzyme Q10 (Coq10), Unknown Dose PO, (Reported) Discharge Statement: "Patient was advised to return to the ER or call 911 if any headaches, dizziness, shortness of breath, chest pain, abdominal pain, bleeding, fevers, or worsening of medical condition. Patient was counseled about treatment plan, medications, possible side effects, patientverbalized understanding. All questions were answered to the best of my ability. This discharge took greater then 30 minutes in planning, reviewing documentation, counseling the patient, and discussing with other team members." ASSESSMENT ASSESSMENT Assessment 79-year-old female with a known history of hypertension, Alzheimer dementia, restless leg syndrome, dyslipidemia who initially presented to the hospital generalized weakness and chest pressure found to have 1. Chest pain OK ruled out 2. Hypertensive urgency, currently resolved add chlorthalidone, continue carvedilol and losartan 3. LVH with the aortic root dilatation 4. Generalized weakness 5. Restless leg syndrome 6. Early cognitive decline 7. Anxiety disorder Date of Service: Jan 16, 2025 Billing Provider: TIN ENGLAND MD Common Visit Codes: NOT BILLABLE TIN ENGLAND MD Jan 16, 2025 13:26
[2025-01-16] MEDS ORDERED: CARV6.2517 PO (14:42)
[2025-01-16] MEDS ORDERED: MELA5TAB16 PO (14:42)
[2025-01-16] MEDS ORDERED: CLON0.2T PO (14:42)
[2025-01-16] MEDS ORDERED: CHLO25TA2 PO (14:42)
[2025-01-16] MEDS ORDERED: LOS25T PO (14:42)
[2025-01-16 17:00] VITALS: BP 137/60; PULSE 65; RESP 16; TEMP 97.9; O2SAT 94
--- NOTE | 2025-01-16 23:50 | DVHPN2 ---
Progress Note - Dictate Date Seen: Jan 16, 2025 Has the PT tested + for MRSA If YES, has PT been informed?: No Medical Necessity Reason Pt with a Central, PICC or Fol: No Subjective Patient was seen and evaluated in follow up. Patient has no new complaints at this time. Patient denies any cardiac symptoms. Patient is cardiac stable for discharge. vital signs Vital Sign Date Time Temp Pulse Resp B/P (MAP) Pulse Ox O2 Delivery O2 Flow Rate FiO2 01/16/25 17:00 97.9 65 16 137/60 (85) 94 97.9 01/16/25 07:30 Room Air* 0 21 Total Intake and Output 01/15/25 01/15/25 01/16/25 14:59 22:59 06:59 Intake Total 600 ml 900 ml Balance 600 ml 900 ml objective General Appearance: Alert, Oriented X3, Cooperative, No acute distress HEENT: Atraumatic, PERRLA, EOMI, Mucous membr. moist/pink Respiratory: Clear to auscultation, Normal air movement Cardiovascular: Regular rate, Normal S1, Normal S2, No murmurs Abdominal: Normal bowel sounds, Soft, No tenderness, No hepatospenomegaly, No masses Extremities: No clubbing, No cyanosis, No edema, Normal pulses, No tenderness/swelling Skin: No rashes, No breakdown, No significant lesion Neuro: Normal gait, Normal speech, Strength at 5/5 X4 ext, Normal tone, Sensation intact, Cranial nerves 3-12 NL, Reflexes 2+ Psych/Mental Status: Mental status NL, Mood NL laboratory and microbiology Laboratory Tests 01/15/25 14:02 Test 01/15/25 14:02 Range/Units Serum Glucose 199 H 74-106 mg/dL Problem List NSTEMI likely type II from below. Chest pain. Hypertensive urgency. LVH with the aortic root dilatation. Generalized weakness. Restless leg syndrome. Early cognitive decline. Anxiety disorder. CAD. Assessment/Plan Continued all current supportive medical care. Coreg. Clonidine. Losartan. Aspirin, Lipitor. DVT prophylactics. IV Hydralazine for SBP >160. Tylenol for pain management. Additional plan as per the hospital course. Plan discussed with: Patient JOSÉ MIGUEL WATTS MD Jan 16, 2025 20:09
== END 2025-01-16 18:45 | disposition home health service (06) | DRG 304 ==
LOC: EDBD 01:39 → ER 01:39 → EDUNIT# 03:01 → OVERFLOW 03:01 → WEST WING 14:30
PROVIDERS: ADMIT Internal Medicine; ATTEND Internal Medicine
DX: I16.0 Hypertensive urgency (principal); G93.41 Metabolic encephalopathy; I48.92 Unspecified atrial flutter; F02.84 Dementia in other diseases classified elsewhere, unspecified severity, with anxiety; E78.5 Hyperlipidemia, unspecified; G25.81 Restless legs syndrome; I77.810 Thoracic aortic ectasia; I25.10 Atherosclerotic heart disease of native coronary artery without angina pectoris; G30.9 Alzheimer's disease, unspecified; E11.9 Type 2 diabetes mellitus without complications; Z90.49 Acquired absence of other specified parts of digestive tract; Z80.7 Family history of other malignant neoplasms of lymphoid, hematopoietic and related tissues; Z80.1 Family history of malignant neoplasm of trachea, bronchus and lung; Z82.5 Family history of asthma and other chronic lower respiratory diseases; Z79.82 Long term (current) use of aspirin
CPT/HCPCS: 36415; 71045; 80048; 80053; 80061; 80307; 81001; 82140; 83036; 83605; 83690; 83735; 83880; 84439; 84443; 84484; 85025; 87081; 87086; 87426; 87804; 93005; 96360; 96372; 97163; G0378